=== PATIENT | female | born 1935 | race Caucasian/White ===

== ENCOUNTER → 2022-12-26 09:30 | Outpatient (CLI) | payer MEDICARE, SELFPAY ==
[2022-12-26 19:36] LABS: Alanine Aminotransferase 21 U/L (12-78); Albumin Level 4.2 g/dl (3.5-5.0); Albumin/Globulin Ratio 1.4 (1.1-1.8); Alkaline Phosphatase 86 U/L (38-126); Anion Gap 13.3 mEq/L (5-15); Aspartate Amino Transferase 38 U/L (14-36); Bilirubin,Total 0.3 mg/dl (0.2-1.3); Blood Urea Nitrogen 14 mg/dl (7-17); Calcium 9.4 mg/dl (8.4-10.2); Carbon Dioxide 26 mmol/L (22.0-30.0); Chloride 105 mmol/L (98-107); Chol/HDL Ratio 3.3 (1-3.5); Cholesterol 154 mg/dl (140-200); Estimated Glomerular Filt Rate 68 ml/min (>60); GFR (African American) 82 ML/MIN (>60); Globulin 2.9 g/dL (1.3-3.2); Glucose 87 mg/dl (74-100); HDL Cholesterol 47 mg/dl (40-60); Potassium 4.3 mmoL/L (3.5-5.1); Sodium 140 mmol/L (136-145); Total Protein,Serum 7.1 g/dl (6.3-8.2); Triglycerides 97 mg/dl (30-150); VLDL Cholesterol 19 mg/dL (0-40)
[2022-12-26 19:39] LABS: Basophils % 0.8 % (0.1-2.0); Eosinophils # 0.3 K/mm3 (0.0-0.4); Eosinophils % 4.9 % (0.1-12.0); Hematocrit 39.7 % (37.0-47.0); Lymphocytes % 39.2 % (10-50); Mean Corpuscular HGB Conc 32.9 g/dL (31.8-35.4); Mean Corpuscular Hemoglobin 33.1 pg (27.0-31.2); Mean Corpuscular Volume 100.5 fl (81-99); Mean Platelet Volume 11.6 fl (7.4-10.4); Monocytes # 0.4 K/mm3 (0.1-1.0); Monocytes % 8.5 % (1.7-9.3); Neutrophils # 2.4 K/mm3 (1.8-7.8); Neutrophils % 46.6 % (37.0-80.0); Platelet Count 141 K/mm3 (142-424); Red Blood Count 3.95 M/mm3 (4.20-5.40); White Blood Count 5.1 K/mm3 (4.8-10.8)
[2022-12-26 19:54] LABS: 25-OH Vitamin D, Total 71.9 ng/mL (30-100); Direct LDL Cholesterol 85.14 mg/dL (100-129); T4 (Thyroxine) 7.7 ug/dl (5.53-11.0)
[2022-12-26 20:07] LABS: Thyroid Stimulating Hormone 4.52 uIU/mL (0.465-4.68)
== END ==
PROVIDERS: PCP Emergency Medicine; Visit Provider Emergency Medicine
DX: R53.83 Other fatigue (principal); E78.5 Hyperlipidemia, unspecified; E55.9 Vitamin D deficiency, unspecified; Z68.24 Body mass index [BMI] 24.0-24.9, adult
CPT/HCPCS: 80053; 80061; 82306; 84436; 84443; 85025

== ENCOUNTER → 2023-02-21 11:57 | Outpatient (CLI) | payer MEDICARE, SELFPAY ==
[2023-02-21 11:59] LABS: Benzodiazepines Screen,Urine Negative ng/ml (<200)
[2023-02-21 12:00] LABS: Amphetamine/Metha Screen,Urine Negative ng/ml (<1000)
[2023-02-21 12:01] LABS: Methadone Screen,Urine Negative ng/ml (<300)
[2023-02-21 12:02] LABS: Cannabinoid Screen,Urine Negative ng/ml (<50); Cocaine Screen,Urine Negative ng/ml (<300)
[2023-02-21 12:04] LABS: Opiate Screen,Urine Negative ng/ml (<300); Phencyclidine Screen,Urine Negative ng/ml (<25)
[2023-03-01 11:41] LABS: Barbiturates Positive (.)
== END ==
LOC: LAB.DROPOF 11:58
PROVIDERS: PCP Internal Medicine; Visit Provider Internal Medicine
DX: M54.12 Radiculopathy, cervical region (principal); Z79.899 Other long term (current) drug therapy
CPT/HCPCS: 80307; 80345

== ENCOUNTER 2023-03-08 09:00 | Outpatient (RCR) | payer MEDICARE, SELFPAY ==
--- NOTE | 2023-01-24 09:51 | HMH.PTOPEV ---
PT Outpatient Evaluation Rehab PT Outpatient Evaluation Start: 01/24/23 09:34 Freq: Status: Active Protocol: Document 01/24/23 09:34 KAMRON (Rec: 01/24/23 09:50 KAMRON [id number]) E-signed By George Quesada, PT Outpatient Therapy Subjective History Subjective History Patient is an 87 year old female presenting to outpatient PT with reports of chronic cervical spine pain starting approximately 5 years ago that has progressively gotten worse over the past 4 months. Patient also complains of upper/mid thoracic spine pain right side only. Patient reports hx of multiple R rib fractures, specifically T4-7. Cervical spine symptoms of insidious onset. No reports of radicular symptoms. No recent imaging on file to report. Patient has previously seen pain management for injections with no improvements noted. Comorbidities include hx of HTN and HL. New diagnosis of cancer in past 12 No months? Chief Complaint Pain,Stiff Symptom Type Ache,Stabbing Symptoms Relieved By Rest/Positioning,Heat,OTC Meds ,Prescription Meds Symptoms Aggravated By Physical Activity,Lifting Prior Functional Limitations None Current Functional Limitations Reaching,Lifting,Housework Symptom Description Constant but Variable Level of pain today (0-10) 3 Pain scale - at its best (0-10) 1 Pain scale - at its worst (0-10) 9 Cervical Eval Palpation Cervical Muscles R Cervical Paraspinal,L Cervical Paraspinal,R Suboccipital,L Suboccipital,R CT Junction,L CT Junction,R Upper Trapezius,L Upper Trapezius Cervical/Thoracic Palpation Findings Tenderness Posture Head/C-Spine Posture Sitting Position Extended Head/C-Spine Posture Standing Position Extended Flexibility Deficits Upper Trapezius Muscle Length (R) Moderate Tightness,(L) Moderate Tightness Levaetor Scapulae Muscle Length (R) Moderate Tightness,(L) Moderate Tightness Pectoralis Minor Muscle Length (R) Mild Tightness,(L) Mild Tightness Passive Joint Mobility Cervical PIVM WNL: R OA L OA R AA L AA R C2/3 L C2/3 R C3/4 L C3/4 R C4/5 L C4/5 R C5/6 L C5/6 R C6/7 L C6/7 R C7/T1 L C7/T1 AROM Cervical Spine Extension Active Range of 38 Motion (degrees) Cervical Spine Flexion Active Range of 46 Motion (degrees) Cervical Spine Right Lateral Flexion 40 Active Range of Motion (degrees) Cervical Spine Left Lateral Flexion 44 Active Range of Motion (degrees) Cervical Spine Right Rotation Active 62 Range of Motion (degrees) Cervical Spine Left Rotation Active 58 Range of Motion (degrees) MMT Bilateral Deltoid (C5) 4 Good Biceps Brachii Strength Grade 4 Good Wrist Extension Strength Grade 4 Good Triceps Brachii Strength Grade 4 Good Wrist Flexion Strength Grade 4 Good Extensor Pollicis Longus Strength Grade 4 Good Finger Abduction Strength Grade 4 Good Special Test C-Spine Foraminal Compression (Spurling) Negative Left,Negative Right Test C-Spine Foraminal Distraction Test Positive Neck Disability Index Neck Disability Index Section 1: Pain Intensity The pain is moderate at the moment Section 2: Personal Care (washing, I can look after myself dressing, etc.) normally without causing extra pain Section 3: Lifting I can only lift very light weights Section 4: Reading I can hardly read at all because of severe pain in my neck Section 5: Headaches I have slight headaches, which come infrequently Section 6: Concentration I can concentrate fully when I want to with slight difficulty Section 7: Work I can do as much work as I want to Section 8: Driving I can drive my car as long as I want with moderate pain in my neck Section 9: Sleeping My sleep is slightly disturbed (less than 1 hr sleepless) Section 10: Recreation I am able to engage in all my recreation activities with some pain in NDI Score 16 Outpatient Therapy Assessment Impairments Problems/Impairmments Palpation Tenderness,Impaired Range of Motion,Impaired Driving,Impaired Lifting, Impaired Household Care, Impaired Work Activities, Subjective C/O Pain Prognosis Rehab Potential Good Clinical Impression Consistent with Diagnosis Yes Short Term Goals Number of Weeks 2 Decrease Subjective C/O Pain Yes: 5/10 at worst Patient to be Ind w/ HEP Yes Assisted Goals Number of Weeks 4-6 Decreased Palpation Tenderness Yes: 1/4 Increase Range of Motion Yes: WNL all planes Restore Ability to Lift Objects to Yes: 10 lbs without difficulty Shoulder Level Restore Ability to Lift Objects Overhead Yes: Improve Ability For Household Care Yes Improve Tolerance to Work Activities Yes Decrease Subjective C/O Pain Yes: 2/10 at worst Outpatient Therapy Plan of Care Treatment Plan May Include Therapeutic Exercise Including Home Yes Exercise Program Manual Therapy Techniques Yes Neuromuscular Re-education Yes Therapeutic Activities to Return to Yes Previous Functional/Work Level Mechanical Traction Yes Dry Needling Yes Thermal Modalities Yes Electrical Stimulation Yes Ultrasound/Phonophoresis Yes Iontophoresis Yes Massage Yes Eval/Re-Eval Yes Frequency Times per week 2 Duration Number of Weeks 4-6 Addendums This patient is a candidate for social No or vocational rehab? Patient/Guardian verbally acknowledges Yes understanding of treatment program and consents to further treatment? Patient/Guardian verbally acknowledges Yes understanding of diagnosis, prognosis and goals for treatment? Eval Complexity PT Charges 83694 - Moderate Complexity Shoulder/Elbow Eval Shoulder Objective Measurements Elbow Objective Measurements PHYSICIAN CERTIFICATION: I certify the specified therapy services for Summer Gandara are required, authorized, and reviewed every 30 days.
== END 2023-03-08 10:00 | disposition home or self-care (01) ==
LOC: PT 09:00
PROVIDERS: PCP Emergency Medicine; Visit Provider Emergency Medicine
DX: M54.12 Radiculopathy, cervical region (principal)
CPT/HCPCS: 20561; 97010; 97014; 97035; 97110; 97140; 97163; 97164; 97530; G0283

== ENCOUNTER 2023-04-19 12:50 | Outpatient (RCR) | payer MEDICARE, SELFPAY ==
--- NOTE | 2023-04-19 13:57 | HMH.PTOPEV ---
PT Outpatient Evaluation Rehab PT Outpatient Evaluation Start: 04/19/23 13:04 Freq: Status: Active Protocol: Document 04/19/23 13:27 JEAN (Rec: 04/19/23 13:57 JEAN [id number]) E-signed By Miguel Booth, PT Outpatient Therapy Subjective History Subjective History This is the initial PT eval for Summer Gandara, 88 yowf who presents with c/o neck pain for many years, but worse x ~ 1 yr. She reports no radicular symptoms at this time, but does c/o some pain below the R scapula. She reports having prior injections for pain management that did not help her symptoms. She also reports history of frequent headaches, since the 1959's. New diagnosis of cancer in past 12 No months? Chief Complaint Pain,Stiff Symptom Type Ache Symptoms Relieved By Heat Symptoms Aggravated By Physical Activity Prior Functional Limitations Sleeping Current Functional Limitations Housework,Sleeping,Recreation Activity Symptom Description Constant but Variable Level of pain today (0-10) 4 Pain scale - at its worst (0-10) 8 Cervical Eval Palpation Cervical Muscles R Cervical Paraspinal,L Cervical Paraspinal,R Suboccipital,L Suboccipital,R CT Junction,L CT Junction,R Thoracic Paraspinals,L Thoracic Paraspinals Cervical/Thoracic Palpation Findings Tenderness Flexibility Deficits Upper Trapezius Muscle Length (R) Moderate Tightness,(L) Moderate Tightness Levaetor Scapulae Muscle Length (R) Moderate Tightness,(L) Moderate Tightness Passive Joint Mobility Cervical PIVM Dec: R C3/4 L C3/4 R C4/5 L C4/5 R C5/6 L C5/6 R C6/7 L C6/7 R C7/T1 L C7/T1 WNL: R OA L OA R AA L AA R C2/3 L C2/3 AROM Cervical Spine Extension Active Range of 0-45 Motion (degrees) Cervical Spine Flexion Active Range of 0-40 Motion (degrees) Cervical Spine Right Lateral Flexion 0-20 Active Range of Motion (degrees) Cervical Spine Left Lateral Flexion 0-25 Active Range of Motion (degrees) Cervical Spine Right Rotation Active 0-55 Range of Motion (degrees) Cervical Spine Left Rotation Active 0-50 Range of Motion (degrees) MMT Bilateral Deltoid (C5) 4 Good Biceps Brachii Strength Grade 4 Good Wrist Extension Strength Grade 5 Normal Triceps Brachii Strength Grade 5 Normal Wrist Flexion Strength Grade 5 Normal Extensor Pollicis Longus Strength Grade 5 Normal Finger Abduction Strength Grade 5 Normal Special Test C-Spine Foraminal Compression (Spurling) Negative Left,Negative Right Test C-spine Verterbral Accessory Movements [employer] [place] that Elicit Symptoms C-Spine Foraminal Distraction Test Negative C-Spine Compression Test Negative Left,Negative Right Neck Disability Index Neck Disability Index Section 1: Pain Intensity The pain is very mild at moment Section 2: Personal Care (washing, I can look after myself dressing, etc.) normally without causing extra pain Section 3: Lifting I can lift heavy weights but it gives extra pain Section 4: Reading I can read as much as I want with moderate pain in my neck Section 5: Headaches I have moderate headaches, which come infrequently Section 6: Concentration I can concentrate fully when I want to with no difficulty Section 7: Work I can only do my usual work, but no more Section 8: Driving I can drive my car as long as I want with slight pain in my neck Section 9: Sleeping My sleep is greatly disturbed (3-5 hrs sleepless) Section 10: Recreation I am able to engage in most, but not all of my usual recreation NDI Score 14 Outpatient Therapy Assessment Impairments Problems/Impairmments Palpation Tenderness,Impaired Range of Motion,Impaired Strength,Impaired Transfers, Impaired Lifting,Impaired Household Care,Subjective C/O Pain,Impaired Self Care/Self Management Prognosis Rehab Potential Fair Clinical Impression Consistent with Diagnosis Yes Short Term Goals Number of Weeks 2 Decreased Palpation Tenderness Yes: 1/4 B UT Increase Range of Motion Yes: C-spine AROM by 5 deg Increase Strength Yes: B UE 4/5 throughout Improve Neck Disability Index Score Yes: <12 Decrease Subjective C/O Pain Yes: 6/10 at worst Patient to be Ind w/ HEP Yes Intermediate Goals Number of Weeks 4 Decreased Palpation Tenderness Yes: 0/4 B UT Increase Range of Motion Yes: C-spine AROM by 10 deg Increase Strength Yes: B UE 4+/5 throughout Improve Ability For Household Care Yes Improve Neck Disability Index Score Yes: <10 Decrease Subjective C/O Pain Yes: 4/10 at worst Patient to be Ind w/ Advanced HEP Yes Outpatient Therapy Plan of Care Treatment Plan May Include Therapeutic Exercise Including Home Yes Exercise Program Manual Therapy Techniques Yes Neuromuscular Re-education Yes Therapeutic Activities to Return to Yes Previous Functional/Work Level ADL/Self Care Education Yes Thermal Modalities Yes Electrical Stimulation Yes Ultrasound/Phonophoresis Yes Massage Yes Eval/Re-Eval Yes Frequency Times per week 2 Duration Number of Weeks 4 Addendums This patient is a candidate for social No or vocational rehab? Patient/Guardian verbally acknowledges Yes understanding of treatment program and consents to further treatment? Patient/Guardian verbally acknowledges Yes understanding of diagnosis, prognosis and goals for treatment? Eval Complexity PT Charges 10168 - High Complexity Shoulder/Elbow Eval Shoulder Objective Measurements Elbow Objective Measurements PHYSICIAN CERTIFICATION: I certify the specified therapy services for Summer Gandara are required, authorized, and reviewed every 30 days.
[2023-04-19 19:26] LABS: Basophils % 0.7 % (0.1-2.0); Eosinophils # 0.1 K/mm3 (0.0-0.4); Eosinophils % 2.3 % (0.1-12.0); Hematocrit 38.6 % (37.0-47.0); Hemoglobin 12.7 g/dL (12.2-16.2); Lymphocytes # 1.9 K/mm3 (0.7-4.5); Mean Corpuscular Hemoglobin 31.9 pg (27.0-31.2); Mean Corpuscular Volume 96.8 fl (81-99); Mean Platelet Volume 11.3 fl (7.4-10.4); Monocytes # 0.4 K/mm3 (0.1-1.0); Monocytes % 8.1 % (1.7-9.3); Neutrophils # 2.5 K/mm3 (1.8-7.8); Neutrophils % 50.9 % (37.0-80.0); Platelet Count 145 K/mm3 (142-424); Red Blood Count 3.99 M/mm3 (4.20-5.40); Red Cell Distribution Width 13.1 % (11.5-17.5); White Blood Count 4.9 K/mm3 (4.8-10.8)
[2023-04-19 19:33] LABS: Alanine Aminotransferase 18 U/L (12-78); Albumin Level 3.9 g/dl (3.5-5.0); Albumin/Globulin Ratio 1.3 (1.1-1.8); Alkaline Phosphatase 90 U/L (38-126); Anion Gap 9.4 mEq/L (5-15); Aspartate Amino Transferase 28 U/L (14-36); Bilirubin,Total 0.3 mg/dl (0.2-1.3); Blood Urea Nitrogen 11 mg/dl (7-17); Calcium 9.1 mg/dl (8.4-10.2); Carbon Dioxide 26 mmol/L (22.0-30.0); Chloride 108 mmol/L (98-107); Estimated Glomerular Filt Rate 59 ml/min (>60); GFR (African American) 72 ML/MIN (>60); Globulin 2.9 g/dL (1.3-3.2); Glucose 95 mg/dl (74-100); Potassium 4.4 mmoL/L (3.5-5.1); Sodium 139 mmol/L (136-145); Total Protein,Serum 6.8 g/dl (6.3-8.2)
== END 2023-04-19 14:00 | disposition home or self-care (01) ==
LOC: PT 12:50
PROVIDERS: Internal Medicine; PCP Internal Medicine; Visit Provider Internal Medicine
DX: M54.12 Radiculopathy, cervical region (principal); M54.16 Radiculopathy, lumbar region; E03.9 Hypothyroidism, unspecified; M81.0 Age-related osteoporosis without current pathological fracture
CPT/HCPCS: 80053; 82306; 84443; 85025; 97163

== ENCOUNTER 2023-04-20 10:24 | Outpatient (CLI) | payer MEDICARE, SELFPAY ==
--- NOTE | 2023-04-20 10:28 | XR_ITS ---
FINAL REPORT TECHNIQUE: Right hand 2 views CLINICAL HISTORY: hand pain COMPARISON: None FINDINGS: RIGHT HAND: Mild and moderate degenerative change is present in the right hand, most severe in the distal inner phalangeal joints and the first CMC joint. There is positive ulnar variance present. No acute bony abnormality is identified. There is soft tissue calcifications adjacent to the carpal bones. There are small radiopaque foreign bodies in the second digit. IMPRESSION: Mild and moderate degenerative change, most severe in the distal inner phalangeal joints and the first CMC joint. Reviewed, Interpreted and Dictated by Garrick Bro III, MD Transcribed by Galina Toure Authenticated and [facility]
--- NOTE | 2023-04-20 10:28 | XR_ITS ---
FINAL REPORT CLINICAL HISTORY: back pain COMPARISON: None FINDINGS: AP, lateral, and swimmer's views of the thoracic spine were obtained. There is no prior exam for comparison. There is no acute fracture. Moderate degenerative change is present in the thoracic spine, with multilevel osteophytes. There is an S-shaped curvature of the thoracic spine. Vertebral body height is preserved. Paraspinal soft tissues are within normal limits. IMPRESSION: No acute osseous abnormality of the thoracic spine. Moderate degenerative change with multilevel osteophytes and an S-shaped curvature of the thoracic spine. Reviewed, Interpreted and Dictated by Garrick Bro III, MD Transcribed by Galina Toure Authenticated and [facility] [place] [place]
== END 2023-04-20 23:59 ==
LOC: RAD 10:25
PROVIDERS: PCP Internal Medicine; Visit Provider Internal Medicine
DX: M79.641 Pain in right hand; M54.6 Pain in thoracic spine
CPT/HCPCS: 72072; 73120

== ENCOUNTER → 2023-05-11 10:57 | Outpatient (POV) | payer MEDICARE, SELFPAY ==
--- NOTE | 2023-05-11 11:08 | A.OFFVIS_ITS ---
HPI Data of Consult Patient: new to practice Consult date: 05/11/23 Requesting Physician: Lois Sharma APRN Primary Care Provider: Castro Collins DO Consult Narrative Reason for consult: Right mid back pain, right under the arm pain History of present illness: Ms. Gandara is a 88 year old female who presents today as a new patient. She is a referral to Dr. Gonzalez's office. Today she rates her pain a 5 out of 10. She states she has pain throughout her right shoulder into her mid back and does come down into her right breast and under her arm. Patient states this been going on for over a year unrelated to any specific trauma or injury. Patient does describe this as a sharp sensation that does interfere with her ability to perform activities of daily living. Patient does state that she has tried xgmp-[id number] Tylenol and ibuprofen along with heat and ice and multiple topicals including Biofreeze and Voltaren with minimal relief. Patient states that she did end up going to pain management in [place] where they did do 1 injection however it did not provide any additional relief and that she c ontinues to have soreness from this. Patient does state the pain is worse at night. Patient has had recent physical therapy where they did use a TENS unit and heating pad and she states it does help but only while she is using it. Patient states immediately after these visits the pain is right back and still the same with no additional improvement. Patient does state that she is scheduled for an MRI next Monday. Patient does state that she was prescribed Percocet in the past however since Dr. Wright has last there was some issues to where she is not on it currently however she is hoping to start this medication by accident. Her Lei has been reviewed and is appropriate. CC: Lois Sharma APRN [facility] Disclaimer: The information contained in this section may have been updated after the patient was seen, as this information can be updated by other users. Medical History (Updated 05/11/23 @ 11:28 by Lois Sharma APRN) Migraine HTN (hypertension) Hypothyroid GERD (gastroesophageal reflux disease) Family History (Updated 05/11/23 @ 11:19 by Sandra Richter RN) Other No significant family history Social History (Updated 05/11/23 @ 11:19 by Sandra Richter RN) Smoking Status: Never smoker alcohol intake: never substance use type: denies use current occupational status: other Travel in the last 8 weeks: None caffeine: No Review of Systems Review of Systems Review of systems:: pertinent systems reviewed and negative unless documented below Review of systems (narrative): Review of Systems: General: No recent weight changes, no fever, no sleep disturbances Respiratory: No cough, no shortness of air, no recurring pulmonary infections Cardiovascular/peripheral vascular: No chest pain, no palpitations, no edema, no shortness of breath Gastrointestinal: No new onset incontinence, normal bowel movements reported Genitourinary: No new onset incontinence Musculoskeletal: Right-sided mid back pain, right shoulder pain, right axilla pain Psychiatric: [Normal mood/affect] Neurological: [Denies weakness in extremities], [denies balance issues] Meds Home Medications and Allergies Home Medications Medication Instructions Recorded Confirmed Type aspirin 81 mg tablet,delayed 81 mg PO DAILY Heart disease 01/24/18 05/11/23 History release (Aspir-Low) metoprolol succinate 25 mg 25 mg PO DAILY 12/26/22 05/11/23 History tablet,extended release 24 hr omeprazole 20 mg capsule,delayed 20 mg PO DAILY 12/26/22 05/11/23 History release amitriptyline 10 mg tablet 10 mg PO HS 60 days #60 tabs 04/19/23 05/11/23 Rx srxchvudyn-sdxezrlmhtpzl-arufwvqa 1 tab PO .q day PRN headaches 30 05/10/23 05/11/23 Rx 50 mg-325 mg-40 mg tablet days #30 tabs oxycodone-acetaminophen 5 mg-325 1 tab PO BID PRN pain #20 tabs 05/10/23 05/11/23 Rx mg tablet (Percocet) New Prescriptions to Start Prescriptions: Allergies Allergy/AdvReac Type Severity Reaction Status Date / Time No Known Allergies Allergy Verified 05/10/23 11:06 Objective Narrative: Physical Exam: General: Alert and oriented x3, no acute distress, pleasant and cooperative Lungs: Respirations even and unlabored, symmetrical chest expansion Eyes: PERRL Musculoskeletal: Flexion and extension of thoracic [spine] somewhat guarded secondary to pain, [antalgic gait noted] point tenderness along thoracic paraspinous muscles/rhomboid Neurological: Speech clear, no gross sensory deficit Additional findings Additional findings: FINDINGS: AP, lateral, and swimmer's views of the thoracic spine were obtained. There is no prior exam for comparison. There is no acute fracture. Moderate degenerative change is present in the thoracic spine, with multilevel osteophytes. There is an S-shaped curvature of the thoracic spine. Vertebral body height is preserved. Paraspinal soft tissues are within normal limits. IMPRESSION: No acute osseous abnormality of the thoracic spine. Moderate degenerative change with multilevel osteophytes and an S-shaped curvature of the thoracic spine. Reviewed, Interpreted and Dictated by Garrick Bro III, MD Transcribed by Galina Toure Authenticated and [facility] Assessment and Plan *Assessment and plan (1) Right shoulder pain: Problem Comment: I do not know what is causing this patient's pain is radiating around under her right breast. Again I think this may be related to a nerve root compression. Will get an MRI as described. I said right shoulder but is really not the right shoulder it is just the right\trunk/breast pain on the right side. Will ask physical therapy to focus on this area as well. Status: Acute Qualifiers: Chronicity: chronic Qualified Code(s): M25.511 - Pain in right shoulder; G89.29 - Other chronic pain Category: Medical Code(s): M25.511 - Pain in right shoulder (2) Mid back pain: Status: Acute Category: Medical Code(s): M54.9 - Dorsalgia, unspecified (3) Myofascial pain on right side: Status: Acute Category: Medical Code(s): M79.18 - Myalgia, other site Plan Patient continues to experience significant pain in and around her right shoulder to her mid back with some symptoms under her right axilla. Patient did have point tenderness along her thoracic paraspinous and rhomboid muscles during today's exam. I will order the patient a compounded cream and have her follow- up in 2 weeks after her MRI for reevaluation of symptoms and plan of care. Patient has been instructed to contact the clinic with any concerns before the next appointment. Dr. Campos has reviewed this note and agrees with this plan of care. This note was dictated using voice recognition software and make contain errors or omissions.
[2023-05-11 11:17] VITALS: BP 178/73; PULSE 66; RESP 20; O2SAT 95; BMI 24.6
== END ==
LOC: SC.PAIN 10:58
PROVIDERS: PCP Internal Medicine; Visit Provider Nurse Practitioner Family
DX: M25.511 Pain in right shoulder (principal); G89.29 Other chronic pain; M79.18 Myalgia, other site; M54.6 Pain in thoracic spine
CPT/HCPCS: 99202; G0463

== ENCOUNTER 2023-05-16 10:00 | Outpatient (RCR) | payer MEDICARE, SELFPAY ==
--- NOTE | 2023-05-10 16:32 | HMH.PTOPEV ---
PT Outpatient Evaluation Rehab PT Outpatient Evaluation Start: 05/09/23 14:55 Freq: Status: Active Protocol: Document 05/10/23 07:35 PAULINE (Rec: 05/10/23 14:48 PAULINE [id number]) E-signed By Erica Ramos, PT Outpatient Therapy Subjective History Subjective History This is an initial evaluation for 88 y/o female who presents with complaints of chronic neck, upper back, and shoulder pain. Pt referred for LBP but denying LBP as chief complaint. I have had LBP all my life but that's not why I' m here . Pt reports she did a physical therapy evaluation for her neck here last month. Pt reports she has been having this pain since May of last year. Pt reports chronic ROUSE that begins at the base of the skull and travels up and anteriorly to her forehead. Pt with hx of carpal tunnel release that provided relief. Pt reports all of her pain is right-sided near her posterior scapula and travels up into her neck. Pt had an xray of her thoracic spine that showed degenerative changes but denies hx of MRI. Pt has follow up with her referring physician tomorrow. Pt denying radicular symptoms in UE or LEs. Pt denying nausea, diplopia, or drop attacks. New diagnosis of cancer in past 12 No months? Chief Complaint Pain,Stiff Symptom Type Ache Symptoms Relieved By Rest/Positioning,Heat Symptoms Aggravated By Physical Activity Prior Functional Limitations Reaching,Lifting,Housework, Desk Work/Reading,Bending/ Stooping Symptom Description Constant but Variable Level of pain today (0-10) 4 Pain scale - at its best (0-10) 2 Pain scale - at its worst (0-10) 10 Cervical Eval Palpation Cervical Muscles R Cervical Paraspinal,L Cervical Paraspinal,R Upper Trapezius,R Thoracic Paraspinals Cervical/Thoracic Palpation Findings Tenderness Flexibility Deficits Upper Trapezius Muscle Length (R) Mild Tightness,(L) Mild Tightness AROM Cervical Spine Extension Active Range of 46 Painful R Motion (degrees) Cervical Spine Flexion Active Range of 38 Motion (degrees) Cervical Spine Right Lateral Flexion 22 Active Range of Motion (degrees) Cervical Spine Left Lateral Flexion 25 Painful R Active Range of Motion (degrees) Cervical Spine Right Rotation Active 55 Range of Motion (degrees) Cervical Spine Left Rotation Active 55 Painful R Range of Motion (degrees) MMT Bilateral Deltoid (C5) 4 Good Biceps Brachii Strength Grade 4 Good Wrist Extension Strength Grade 4 Good Triceps Brachii Strength Grade 4 Good Wrist Flexion Strength Grade 4 Good Extensor Pollicis Longus Strength Grade 4 Good Finger Abduction Strength Grade 4 Good Lumbopelvic Eval Posture Thoracic Spine Posture Standing Position Increased Kyphosis Lumbar Spine Posture Standing Position Neutral Assistive device Assistive Devices None / NA Gait Observation General Gait Pattern Observation No Deviations/Normal Palapation tenderness right thoracic spinal tenderness Yes lumbar spinal tenderness Yes paraspinal tenderness Yes Lumbar/Sacral Palpation Findings Tenderness,Trigger Point Range of Motion Lumbar Spine Active Flexion Range of 85 tight feeling Motion (degrees) Lumbar Spine Active Extension Range of 20 Motion (degrees) Left Lumbar Spine Lateral Flexion Active 30 Range of Motion (degrees) Right Lumbar Spine Lateral Flexion 30 Active Range of Motion (degrees) Manual Muscle Test Bilateral Knee Extension Strength Grade 4- Good- Knee Flexion Strength Grade 4- Good- Hip Flexion Strength Grade 4- Good- Hip Abduction Strength Grade 4- Good- Hip Adduction Strength Grade 3+ Fair+ Ankle Dorsiflexion Strength Grade 4- Good- Special Tests Hip Piriformis Test Positive Left,Positive Right Sciatic Nerve Tension Test Negative Left,Negative Right Oswestry Index Section 1 Pain Intensity The pain is moderate and does not vary much Section 2 Personal Care (Washing,Dresing) my way of washing or dressing even though it causes some pain Section 3 Lifting I can lift heavy weights, but it gives me extra pain Section 4 Walking I cannot walk more than one mile wihtout increasing pain Section 5 Sitting Pain prevents me from sitting for more than one hour Section 6 Standing I cannot stand more than 1 hour without increasing pain Section 7 Sleeping Because of my pain, my normal night's sleep is less than 6 hours sleep Section 8 Social Life My social life is normal but increases the degree of pain Section 9 Traveling I get some pain when traveling , but none of my usual forms of travel m Section 10 Changing Degreee of Pain My pain is neither getting better or worse Score and Risk Level Oswestry Sc 18 Oswestry Risk Level Moderate Disability Neck Disability Index Neck Disability Index Section 1: Pain Intensity The pain is moderate at the moment Section 2: Personal Care (washing, I can look after myself dressing, etc.) normally without causing extra pain Section 3: Lifting Pain prevents me lifting heavy weights off the floor, but I can manage Section 4: Reading I can read as much as I want with moderate pain in my neck Section 5: Headaches I have moderate headaches, which come infrequently Section 6: Concentration I have a fair degree of difficulty in concentrating when I want to Section 7: Work I can only do my usual work, but no more Section 8: Driving I can drive my car as long as I want with slight pain in my neck Section 9: Sleeping My sleep is moderately disturbed (2-3 hrs. sleepless) Section 10: Recreation I am able to engage in most, but not all of my usual recreation NDI Score 17 Outpatient Therapy Assessment Impairments Problems/Impairmments Palpation Tenderness,Impaired Range of Motion,Impaired Strength,Impaired Sitting, Impaired Recreational Activities,Subjective C/O Pain ,Impaired Self Care/Self Management Prognosis Rehab Potential Fair Comment Pt with chronic neck and upper back pain, chronic HAs, and chronic LBP. Pt denying LBP as chief complaint and demonstrated non-painful and WFL lumbar ROM. Pt TTP cervical, thoracic, and lumbar musculature. Pt does display mild-mod B LE weakness and lumbar/hip muscular tightness. PT to treat back pain and refer for cervical/thoracic further imaging/MRI d/t severity and duration of symptoms. Pt would benefit from skilled outpatient PT to address chronic back pain. Clinical Impression Consistent with Diagnosis Yes Consistent with Back pain Short Term Goals Number of Weeks 2 Decreased Palpation Tenderness Yes: 1/4 TTP involved structures Increase Range of Motion Yes: By 5 degrees in affected planes Increase Strength Yes: 4+/5 MMTs in affected muscles Improve Oswestry Score Yes Improve Neck Disability Index Score Yes: <15 or mild disability Decrease Subjective C/O Pain Yes: 7/10 at worst. Patient to be Ind w/ HEP Yes Shelter Goals Number of Weeks 5 Decreased Palpation Tenderness Yes: 0/4 TTP involved structures Increase Range of Motion Yes: AROM WNL Pain and free Increase Strength Yes: 5/5 UE and LEs Improve Oswestry Score Yes: Score reflecting mild disability Improve Neck Disability Index Score Yes: <10 or mild disability Decrease Subjective C/O Pain Yes: 24 hour pain average of 2 /10 to improve QOL Patient to be Ind w/ Advanced HEP Yes Outpatient Therapy Plan of Care Treatment Plan May Include Therapeutic Exercise Including Home Yes Exercise Program Manual Therapy Techniques Yes Neuromuscular Re-education Yes Therapeutic Activities to Return to Yes Previous Functional/Work Level Gait Training Yes ADL/Self Care Education Yes Thermal Modalities Yes Electrical Stimulation Yes Ultrasound/Phonophoresis Yes Iontophoresis Yes Massage Yes Eval/Re-Eval Yes Frequency Times per week 1-2 times Duration Number of Weeks 4-5 Addendums This patient is a candidate for social No or vocational rehab? Patient/Guardian verbally acknowledges Yes understanding of treatment program and consents to further treatment? Patient/Guardian verbally acknowledges Yes understanding of diagnosis, prognosis and goals for treatment? Eval Complexity PT Charges 89838 - Moderate Complexity Shoulder/Elbow Eval Shoulder Objective Measurements Elbow Objective Measurements PHYSICIAN CERTIFICATION: I certify the specified therapy services for Summer Gandara are required, authorized, and reviewed every 30 days.
== END 2023-05-16 11:00 | disposition home or self-care (01) ==
LOC: PT 10:00
PROVIDERS: Visit Provider Internal Medicine
DX: M54.16 Radiculopathy, lumbar region (principal)
CPT/HCPCS: 97010; 97014; 97110; 97140; 97163; G0283

== ENCOUNTER 2023-05-16 16:57 | Outpatient (CLI) | payer MEDICARE, SELFPAY ==
--- NOTE | 2023-05-16 16:58 | MR_ITS ---
FINAL REPORT CLINICAL HISTORY: RIGHT SIDED neck AND SHOULDER pain FINDINGS: Multiplanar MR imaging of the cervical spine was performed without and with contrast. On the sagittal T2-weighted images, disc degeneration is seen at multiple levels. The vertebral alignment is normal. There is no evidence of fracture. No bony mass is identified. The cervical spinal cord has an unremarkable appearance without evidence of mass, edema or syrinx. C2-3: No significant canal stenosis or neural foraminal narrowing is identified. C3-4: Uncovertebral osteophytes with moderate right and mild left neuroforaminal narrowing. C4-5: Annular disc bulge with uncovertebral osteophytes and mild bilateral neuroforaminal narrowing. C5-6: Disc osteophyte complex with severe bilateral neuroforaminal narrowing. There is moderate central canal stenosis with AP diameter thecal sac measuring 6 mm. C6-7: Disc osteophyte complex with severe bilateral neuroforaminal narrowing. There is mild central canal stenosis with the AP diameter of the thecal sac measuring 9 mm. C7-T1: No significant canal stenosis or neural foraminal narrowing is identified. No abnormal contrast enhancement is seen on the postcontrast images. IMPRESSION: Multilevel degenerative disc disease with severe bilateral neuroforaminal narrowing and mild to moderate central canal stenosis at C5-6 and C6-7. Reviewed, Interpreted and Dictated by Garrick Bro III, MD Transcribed by Lisset Pierre Authenticated and [facility]
[2023-05-16] MEDS: SODIUM CHLORIDE 0.9% 10ML SYR (RAD ONLY) 10 ML IV (17:42)
[2023-05-16] MEDS: GADOTERIDOL INJ 17ML SYRINGE 10 ML IV (17:42)
== END 2023-05-16 23:59 ==
LOC: RAD 16:58
PROVIDERS: PCP Internal Medicine; Visit Provider Internal Medicine
DX: M54.12 Radiculopathy, cervical region (principal)
CPT/HCPCS: 72156; 76376; A9576

== ENCOUNTER 2023-07-05 09:20 | Outpatient (POV) | payer MEDICARE, SELFPAY ==
[2023-07-05 09:55] VITALS: BP 138/81; PULSE 64; RESP 18; O2SAT 100; BMI 24.6
--- NOTE | 2023-07-05 10:22 | EXP.PAIN.SOA ---
[facility] Pain Management SOAP Note Subjective:: Patient is a pleasant 88-year-old female who presents today for follow-up of cervical MRI. Today she rates her pain a 9 out of 10. Patient denies any new trauma or injury. Patient does state that she continues to have pain throughout her neck and into her shoulders and increased headache. Patient states that the pain will go down into her mid back. She describes this as an aching, throbbing sensation with some numbness and tingling. Patient states the pain does interfere with her ability to perform activities of daily living such as cooking and cleaning. Patient has tried bjry-ccn-vpqxbse medications along with heat and ice and topicals with minimal relief. Patient has had physical therapy and used a TENS unit with minimal change. Patient is interested in any help we may be able to provide. She is prescribed Percocet 5 mg from her PCP and was prescribed compounded cream from our office however she states she did not really notice much improvement. Her Lei has been reviewed and is appropriate. Review of Systems: General: No recent weight changes, no fever, no sleep disturbances Respiratory: No cough, no shortness of air, no recurring pulmonary infections Cardiovascular/peripheral vascular: No chest pain, no palpitations, no edema, no shortness of breath Gastrointestinal: No new onset incontinence, normal bowel movements reported Genitourinary: No new onset incontinence Musculoskeletal: Neck pain, headache, bilateral shoulder pain, arm pain Psychiatric: [Normal mood/affect] Neurological: [Denies weakness in extremities], [denies balance issues] Objective:: Physical Exam: General: Alert and oriented x3, no acute distress, pleasant and cooperative Lungs: Respirations even and unlabored, symmetrical chest expansion Eyes: PERRL Musculoskeletal: Flexion and extension of cervical [spine] somewhat guarded secondary to pain, [antalgic gait noted] positive Spurling's test Neurological: Speech clear, no gross sensory deficit CLINICAL HISTORY: RIGHT SIDED neck AND SHOULDER pain FINDINGS: Multiplanar MR imaging of the cervical spine was performed without and with contrast. On the sagittal T2-weighted images, disc degeneration is seen at multiple levels. The vertebral alignment is normal. There is no evidence of fracture. No bony mass is identified. The cervical spinal cord has an unremarkable appearance without evidence of mass, edema or syrinx. C2-3: No significant canal stenosis or neural foraminal narrowing is identified. C3-4: Uncovertebral osteophytes with moderate right and mild left neuroforaminal narrowing. C4-5: Annular disc bulge with uncovertebral osteophytes and mild bilateral neuroforaminal narrowing. C5-6: Disc osteophyte complex with severe bilateral neuroforaminal narrowing. There is moderate central canal stenosis with AP diameter thecal sac measuring 6 mm. C6-7: Disc osteophyte complex with severe bilateral neuroforaminal narrowing. There is mild central canal stenosis with the AP diameter of the thecal sac measuring 9 mm. C7-T1: No significant canal stenosis or neural foraminal narrowing is identified. No abnormal contrast enhancement is seen on the postcontrast images. IMPRESSION: Multilevel degenerative disc disease with severe bilateral neuroforaminal narrowing and mild to moderate central canal stenosis at C5-6 and C6-7. Reviewed, Interpreted and Dictated by Garrick Bro III, MD Transcribed by Lisset Pierre Authenticated and [facility] Assessment:: Degenerative disc disease thoracic and cervical spine with cervical and thoracic radiculopathy symptoms, bilateral shoulder pain, cervical spinal stenosis Plan:: Patient is experiencing significant pain in her neck with limited range of motion and a positive Spurling's test. I have discussed with patient that she may benefit from a cervical epidural steroid injection. Risk and benefits were discussed with patient and she would like to proceed forward with this plan of care. Patient has tried and failed conservative therapies. I have discussed with the patient per her request regarding the cost regarding this injection. I have counseled her to contact her insurance as well as the financial services department or billing department here at [facility] for exact amounts. Patient agrees with this plan of care. We will schedule the patient for a BRANDI C5-C6 under fluoroscopy where she has her most significant stenosis. Patient has been instructed to contact the clinic with any concerns before the next appointment. Dr. Campos has reviewed this note and agrees with this plan of care. This note was dictated using voice recognition software and make contain errors or omissions. [facility] Disclaimer: The information contained in this section may have been updated after the patient was seen, as this information can be updated by other users. Medical History Migraine HTN (hypertension) Hypothyroid GERD (gastroesophageal reflux disease) Family History Other No significant family history Social History Smoking Status: Never smoker alcohol intake: never substance use type: denies use current occupational status: other Travel in the last 8 weeks: None caffeine: No
== END 2023-07-05 23:59 | disposition home or self-care (01) ==
LOC: SC.PAIN 09:21
PROVIDERS: PCP Internal Medicine; Visit Provider Nurse Practitioner Family
DX: M50.122 Cervical disc disorder at C5-C6 level with radiculopathy (principal); M51.14 Intervertebral disc disorders with radiculopathy, thoracic region; M48.02 Spinal stenosis, cervical region; M25.511 Pain in right shoulder; M25.512 Pain in left shoulder
CPT/HCPCS: 99212; G0463

== ENCOUNTER 2023-07-25 09:19 | Day surgery (SDC) | payer MEDICARE, SELFPAY ==
[2023-07-25 09:46] VITALS: BP 151/55; PULSE 55; RESP 18; O2SAT 98; BMI 23.6
[2023-07-25] MEDS: methylPREDNISolone ACETATE 80MG/ML VIAL 80 MG (09:48)
--- NOTE | 2023-07-25 09:48 | P.PCN_ITS ---
Procedure Date: 07/25/23 Time: 09:50 Anesthesiologist:: Ketan Smith CRNA Complications:: None Pre-procedure Diagnosis:: Degenerative disc lumbar spine multiple levels. Lumbar radiculopathy. Degenerative disc cervical spine multiple levels. Cervical radiculopathy. Cervical spondylosis. Post-procedure Diagnosis:: Same. Indications for Procedure:: Patient is a very pleasant 88-year-old female comes our clinic today for cervical epidural steroid injection. Patient reports posterior cervical neck pain as well as bilateral arm radicular symptoms at times. She rates her pain 8/10. Patient states pain increases with activity requiring flexion, extension, left and right rotation of the cervical spine. Procedure Details:: Procedure:Cervical epidural steroid injection Informed consent was obtained and the risks and benefits of the procedure were explained to the patient. The patient was taken to the procedure room and noninvasive monitors placed, including noninvasive blood pressure cuff and pulse oximeter. The neck was prepped using Chloraprep as a cleansing solution. The C6- C7 interspace was viewed using fluroscopy. The skin and subcutaneous tissues were anesthetized using lidocaine 1.5% and a 25-gauge needle. After this an 18- gauge Touhy epidural needle was placed into the C6-C7 interspace under fluroscopy guidance and advanced using loss of resistance to air until the epidural space was encountered. After confirmation of needle placement in the epidural space using contrast dye, a solution containing normal saline, 2 mL and Depo-Medrol 80 mg was incrementally injected into the cervical epidural space.~ The patient tolerated the procedure well with no complications. The patient was observed in the Pain Clinic and then discharged home neurologically intact. Plan and Disposition:: Patient was discharged without incident.
[2023-07-25 09:50] VITALS: BP 187/67; PULSE 53; RESP 16; O2SAT 99
[2023-07-25 09:52] VITALS: BP 187/67; PULSE 56; RESP 18; O2SAT 98
[2023-07-25] MEDS: IOPAMIDOL-200 (41%);10ML VIAL 10 ML IV (09:53)
[2023-07-25 09:56] VITALS: BP 151/55; PULSE 59; RESP 18; O2SAT 98
== END 2023-07-25 09:57 | disposition home or self-care (01) ==
PROVIDERS: PCP Internal Medicine; Visit Provider Nurse Anesthetist, Certified Registered
DX: M50.123 Cervical disc disorder at C6-C7 level with radiculopathy (principal); M51.16 Intervertebral disc disorders with radiculopathy, lumbar region; M47.22 Other spondylosis with radiculopathy, cervical region
CPT/HCPCS: 62321; J1010; Q9966

== ENCOUNTER 2023-08-09 11:07 | Outpatient (POV) | payer MEDICARE, SELFPAY ==
[2023-08-09 11:16] VITALS: BP 139/70; PULSE 56; RESP 18; O2SAT 100; BMI 23.3
--- NOTE | 2023-08-09 11:25 | EXP.PAIN.SOA ---
[facility] Pain Management SOAP Note Subjective:: Patient is a pleasant 88-year-old female who presents today for follow-up of cervical epidural steroid injection C6-C7 on 07/25/2023. Today she rates her pain a 3 out of 10 in her neck and states that she has had at least 50% improvement following this injection and feels like it still helping. Patient states she has been able to do more around her home due to the improved function. Patient does state however she is having more pain in her low back and legs. She feels like she has a lot of weakness and that her legs are going to give out. Patient denies any new trauma or injury. She does describe this pain as an aching, throbbing sensation with some numbness into her legs. Patient does also state that she often is very stiff in the mornings. Patient does state the pain interferes with her ability perform activities of daily living such as cooking and cleaning. Patient is interested in possible injection therapy for the neck and low back pain. Patient is prescribed Percocet from her primary care provider and compounded cream from our office. She denies any side effects from this medication. Her Lei has been reviewed and is appropriate. Review of Systems: General: No recent weight changes, no fever, no sleep disturbances Respiratory: No cough, no shortness of air, no recurring pulmonary infections Cardiovascular/peripheral vascular: No chest pain, no palpitations, no edema, no shortness of breath Gastrointestinal: No new onset incontinence, normal bowel movements reported Genitourinary: No new onset incontinence Musculoskeletal: Low back pain, bilateral leg pain Psychiatric: [Normal mood/affect] Neurological: [Denies weakness in extremities], [denies balance issues] Objective:: Physical Exam: General: Alert and oriented x3, no acute distress, pleasant and cooperative Lungs: Respirations even and unlabored, symmetrical chest expansion Eyes: PERRL Musculoskeletal: Flexion and extension of lumbar [spine] somewhat guarded secondary to pain, [antalgic gait noted] Neurological: Speech clear, no gross sensory deficit Assessment:: Degenerative disc disease of cervical and thoracic spine with cervical and thoracic radiculopathy symptoms, bilateral shoulder pain, cervical spinal stenosis, low back pain with lumbar radiculopathy symptoms Plan:: Patient has had significant improvement following her cervical epidural and does not require any additional injection therapy for her neck at this time. Patient however is experiencing worsening pain in her low back and legs with limited range of motion and increased weakness. I have discussed with patient that she may benefit from lumbar epidural steroid injection. Risk and benefits were discussed with patient and she would like to proceed forward with this plan of care. Patient has tried and failed conservative therapy for longer than 6 weeks and in between injections with minimal improvement. We will schedule the patient for an LESI L4-L5 under fluoroscopy. Patient is not on any blood thinners. Patient has been instructed to contact the clinic with any concerns before the next appointment. Dr. Campos has reviewed this note and agrees with this plan of care. This note was dictated using voice recognition software and make contain errors or omissions. [facility] Disclaimer: The information contained in this section may have been updated after the patient was seen, as this information can be updated by other users. Medical History Migraine HTN (hypertension) Hypothyroid GERD (gastroesophageal reflux disease) Family History Other No significant family history Social History Smoking Status: Never smoker alcohol intake: never substance use type: denies use current occupational status: other Travel in the last 8 weeks: None caffeine: No
== END 2023-08-09 23:59 | disposition home or self-care (01) ==
LOC: SC.PAIN 11:08
PROVIDERS: PCP Internal Medicine; Visit Provider Nurse Practitioner Family
DX: M50.123 Cervical disc disorder at C6-C7 level with radiculopathy (principal); M51.14 Intervertebral disc disorders with radiculopathy, thoracic region; M25.511 Pain in right shoulder; M25.512 Pain in left shoulder; M48.02 Spinal stenosis, cervical region; M54.50 Low back pain, unspecified
CPT/HCPCS: 99212; G0463

== ENCOUNTER 2023-08-24 15:36 | Outpatient (CLI) | payer MEDICARE, SELFPAY ==
--- NOTE | 2023-08-24 15:37 | MR_ITS ---
FINAL REPORT TECHNIQUE: Multiplanar MR without contrast CLINICAL HISTORY: radicular pain, muscle weakness FINDINGS: Sagittal images show normal vertebral height. There is mild levoscoliosis. There is lateral subluxation of L4 on 5. No AP subluxation identified. Marrow signal pattern is unremarkable. L1-2: Mild annular disc bulge and mild facet arthropathy. L2-3: Mild annular disc bulge and facet overgrowth. Mild central canal stenosis and mild bilateral neural foraminal narrowing. L3-4: Mild annular disc bulge and moderate facet arthropathy. Mild central canal stenosis. Moderate bilateral neural foraminal narrowing. L4-5: Moderate annular disc bulge and facet arthropathy. Moderate central canal stenosis. Moderate bilateral neural foraminal narrowing. L5-S1: Minimal annular disc bulge. Moderate facet arthropathy and moderate bilateral neural foraminal narrowing. IMPRESSION: Multilevel disc disease, most pronounced at L4-5. Reviewed, Interpreted and Dictated by Chelle Harmon MD Transcribed by Jennifer Mackenzie Authenticated and [facility]
== END 2023-08-24 23:59 | disposition home or self-care (01) ==
LOC: RAD 15:37
PROVIDERS: PCP Internal Medicine; Visit Provider Internal Medicine
DX: M54.9 Dorsalgia, unspecified (principal); M54.16 Radiculopathy, lumbar region; M62.81 Muscle weakness (generalized)
CPT/HCPCS: 72148

== ENCOUNTER 2023-08-29 11:05 | Day surgery (SDC) | payer MEDICARE, SELFPAY ==
[2023-08-29 11:15] VITALS: BP 151/73; PULSE 54; RESP 16; TEMP 36.3; O2SAT 99; BMI 23.3
[2023-08-29] MEDS: methylPREDNISolone ACETATE 80MG/ML VIAL 80 MG (11:22)
[2023-08-29 11:23] VITALS: BP 143/57; PULSE 56; RESP 18; O2SAT 98
--- NOTE | 2023-08-29 11:24 | EXP.PAIN.PRO ---
Procedure Date: 08/29/23 Time: 11:20 Anesthesiologist:: Ketan Smith CRNA Complications:: None Pre-procedure Diagnosis:: Degenerative disc lumbar spine multilevels. Lumbar radiculopathy. Lumbar spondylosis. Multilevel lumbar facet arthropathy. Post-procedure Diagnosis:: Same. Indications for Procedure:: Patient is a very pleasant 88-year-old female that comes to our clinic today for lumbar epidural steroid injection at the L4-5 level. Patient reports low back pain as well as bilateral hip and leg radicular symptoms at times. She rates her pain 7/10. Procedure Details:: Procedure: Lumbar epidural steroid injection under fluoroscopy Informed consent was obtained and the risks and benefits of the procedure were explained to the patient. The patient was taken to the procedure room and noninvasive monitors placed, including noninvasive blood pressure cuff and pulse oximeter. The back was viewed using C-arm Fluoroscopy and prepped using Chloraprep as a cleansing solution and the L4-L5 interspace was palpated. Skin and subcutaneous tissues were anesthetized using lidocaine 1.5% and a 25-gauge needle. After this, an 18-gauge Touhy epidural needle was placed into the L4-L5 interspace and advanced using fluoroscopic guidance and loss of resistance to air until the epidural space was encountered. After confirmation of needle placement in the epidural space, with dye, a solution containing normal saline, 3 mL and Depo-Medrol 80 mg were incrementally injected into the lumbar epidural space. The patient tolerated the procedure well with no complications. The patient was observed in the Pain Clinic and then discharged home neurologically intact. Plan and Disposition:: Patient was discharged without incident.
[2023-08-29 11:25] VITALS: BP 144/63; PULSE 58; RESP 18; O2SAT 99
[2023-08-29 11:26] VITALS: BP 143/57; PULSE 56; RESP 18; O2SAT 98
== END 2023-08-29 11:25 | disposition home or self-care (01) ==
PROVIDERS: PCP Internal Medicine; Visit Provider Nurse Anesthetist, Certified Registered
DX: M47.26 Other spondylosis with radiculopathy, lumbar region (principal); M51.36 Other intervertebral disc degeneration, lumbar region
CPT/HCPCS: 62323; J1010

== ENCOUNTER 2023-09-20 12:40 | Outpatient (CLI) | payer MEDICARE, SELFPAY ==
--- NOTE | 2023-09-20 12:41 | MM_ITS ---
PROCEDURE INFORMATION: Exam: MG Bilateral Screening 3D Mammography Exam date and time: 09/20/2023 12:26 PM Age: 88 years old Clinical indication: Screening mammogram TECHNIQUE: Imaging protocol: Bilateral Screening tomosynthesis and 2D mammography including computer-aided detection (CAD) when performed. COMPARISON: No relevant prior studies available. FINDINGS: MAMMOGRAPHY: Breast composition: The breast is heterogeneously dense, which may obscure small masses. Mass: None. Architectural distortion: No new or suspicious architectural distortion. Calcifications: No new or suspicious calcifications are present Asymmetric density: No new or suspicious asymmetric density is present Skin thickening: None. Axillary adenopathy: None. IMPRESSION: No mammographic evidence of malignancy. Recommend annual screening mammography unless otherwise clinically indicated. ASSESSMENT: BI-RADS category 1: Negative.
== END 2023-09-20 23:59 | disposition home or self-care (01) ==
LOC: RAD 12:41
PROVIDERS: PCP Internal Medicine; Visit Provider Internal Medicine
DX: Z12.31 Encounter for screening mammogram for malignant neoplasm of breast (principal)
CPT/HCPCS: 77063; 77067

== ENCOUNTER 2023-11-02 10:40 | Outpatient (CLI) | payer MEDICARE, SELFPAY ==
[2023-11-02 19:58] LABS: Microalbumin/Creatinine Ratio 5.2
[2023-11-02 20:14] LABS: Creatinine,Urine Random 125 mg/dL (Not Estab.)
== END 2023-11-02 23:59 | disposition home or self-care (01) ==
LOC: LAB.DROPOF 11-03 11:13
PROVIDERS: PCP Internal Medicine; Visit Provider Internal Medicine
DX: R73.03 Prediabetes (principal)
CPT/HCPCS: 82043; 82570

== ENCOUNTER 2024-03-28 10:10 | Outpatient (CLI) | payer MEDICARE, SELFPAY ==
[2024-03-28 18:33] LABS: Basophils % 0.8 % (0.1-2.0); Eosinophils # 0.2 K/mm3 (0.0-0.4); Eosinophils % 3.1 % (0.1-12.0); Hematocrit 37.9 % (37.0-47.0); Hemoglobin 12.4 g/dL (12.2-16.2); Lymphocytes % 40.8 % (10-50); Mean Corpuscular HGB Conc 32.7 g/dL (31.8-35.4); Mean Corpuscular Volume 97.9 fl (81-99); Mean Platelet Volume 12.7 fl (7.4-10.4); Monocytes # 0.5 K/mm3 (0.1-1.0); Neutrophils # 2.2 K/mm3 (1.8-7.8); Neutrophils % 45.1 % (37.0-80.0); Platelet Count 157 K/mm3 (142-424); Red Blood Count 3.87 M/mm3 (4.20-5.40); Red Cell Distribution Width 12.7 % (11.5-17.5); White Blood Count 4.9 K/mm3 (4.8-10.8)
[2024-03-28 19:21] LABS: Chloride 103 mmol/L (98-107); Potassium 4.6 mmoL/L (3.5-5.1); Sodium 138 mmol/L (136-145)
[2024-03-28 19:24] LABS: Alanine Aminotransferase 21 U/L (12-78); Albumin/Globulin Ratio 1.4 (1.1-1.8); Alkaline Phosphatase 81 U/L (38-126); Anion Gap 12.6 mEq/L (5-15); Aspartate Amino Transferase 34 U/L (14-36); Bilirubin,Total 0.5 mg/dl (0.2-1.3); Blood Urea Nitrogen 12 mg/dl (7-17); Calcium 9.6 mg/dl (8.4-10.2); Carbon Dioxide 27 mmol/L (22.0-30.0); Estimated Glomerular Filt Rate 59 ml/min (>60); GFR (African American) 71 ML/MIN (>60); Globulin 2.8 g/dL (1.3-3.2); Glucose 80 mg/dl (74-100); Total Protein,Serum 6.8 g/dl (6.3-8.2)
[2024-03-28 19:39] LABS: 25-OH Vitamin D, Total 56.7 ng/mL (30-100)
[2024-03-28 19:56] LABS: Thyroid Stimulating Hormone 0.55 uIU/mL (0.465-4.68)
[2024-03-28 20:37] LABS: Microalbumin < 6.000 mg/L (0-16.7)
[2024-03-28 20:49] LABS: Creatinine,Urine Random 109 mg/dL (Not Estab.)
== END 2024-03-28 23:59 | disposition home or self-care (01) ==
LOC: LAB.DROPOF 03-29 09:59
PROVIDERS: PCP Internal Medicine; Visit Provider Internal Medicine
DX: E05.90 Thyrotoxicosis, unspecified without thyrotoxic crisis or storm (principal); E78.2 Mixed hyperlipidemia; R29.818 Other symptoms and signs involving the nervous system; R51.9 Headache, unspecified
CPT/HCPCS: 80053; 82043; 82306; 82570; 84443; 85025

== ENCOUNTER 2024-07-10 10:22 | Emergency (ER) | payer MEDICARE, SELFPAY ==
[2024-07-10 10:34] VITALS: BP 153/89; PULSE 50; O2SAT 98
--- OUTSIDE RECORDS SUMMARY | 2024-07-10 10:35 | XMS_ITS | Data Portability ---
Author Organization [place] - [facility] - [facility] SONA Rojas ADMIN Address [address] [place] [address] Assessment Encounter Date Assessment Date Assessment LastModified by Organization Details LastModified Time 10/24/2022 10/24/2022 This is a 87 yea r old female referred to [facility] by Dr. Gramaoj for management of back pain. She denies DM, anti-coagulation, and smoking. Of note, the patient is prescribed Gabapentin through Dr. Gramajo to assist in managing cervical pain. She presents to the clinic today for establishment of care. The patient complains of pain in her upper back, that goes down the right side, across her lower back, and into the back of her left leg to her knee. She states the pain has become more exacerbated since June. The pain often wakes her in the middle of night, and causes her trouble with ambulation at times. She complains the left leg pain causes her knee to buckle, and she nearly falls intermittently. The patient has been unable to participate in physical therapy due to increased pain, but is very active at home performing daily activities and chores in an effort to maintain function. However, most recently her daily activities, sleep, and quality of life have been negatively effected due to her pain. Based on history and physical exam, I believe this patient's pain is associated with spinal enthesopathy, and greater trochanteric bursitis. To Address this patient's pain: I will proceed with scheduling a right trigger point injection to target the latissimus dorsi, rhomboid, and levator scapulae to target this patient's myofascial pain. I will also schedule a left greater trochanteric bursa injection, in an effort to alleviate this patient's left lower extremity pain. I had a detailed discussion with the patient today regarding the procedures, and answered all questions/concern s. * Schedule: TPI right rhomboid, levator scapulae, latissimus dorsi * Schedule: Left GTB injection ([place]) if the problem persists after the TPI injection * Follow Up: Post procedures (Vanessa) -------- I have discussed in great detail our potential treatment options which would include a rehabilitative approach to care. This program would include medication management, Physical Therapy, consideration for interventional procedures as appropriate, and lifestyle modification (diet, weight loss, exercise, smoking/tobacco cessation, holistic approach including meditation and yoga). The patient understands and agrees prior to proceeding with this plan. _ __ __ __ __ __ __ __ __ __ __ __ __ __ __ __ __ __ __ __ __ __ __ __ __ __ __ __ _ I counseled the patient extensively and informed of the risks of the procedure, including the risk of paralysis, nerve damage, respiratory arrest, arrhythmias, stroke, weakness, and infection, which although very low, could result in or disability. The patient acknowledged to me that they understand and accept these risks. RN EDUCATION Extensive coordination of care provided by RN to educate patient on upcoming procedure and to coordinate obtaining extensive incoming medical records. ------ RECORDS REVIEW: As per clinic policy, we will have the patient sign a release to obtain previous imaging and clinical notes. _ __ __ __ __ __ __ __ __ __ __ __ __ __ __ __ __ __ __ __ __ __ __ __ __ __ __ __ _ PSYCH: Pain affecting Neuro-psych behavior was discussed. Discussed about pain psychological counseling as a part of the multimodal approach to pain treatment. _ __ __ __ __ __ __ __ __ __ __ __ __ __ __ __ __ __ __ __ __ __ __ __ __ __ __ __ _ REHABILITATION: Discussed with the patient the importance of diet, daily physical activity and PT. Discussed with the patient the need to be scheduled for physical therapy since physical therapy will prolong the benefits of the procedure and interventions. _ __ __ __ __ __ __ __ __ __ __ __ __ __ __ __ __ __ __ __ __ __ __ __ __ __ __ __ _ MACKENZIE: [id number] I have reviewed patient's MACKENZIE report prior to prescribing Schedule II, III, and IV medications that require review by law.. [email or web address] Not available 10/26/2022 08:39:12 11/29/2022 11/29/2022 This is a 87 yea r old female referred to [facility] by Dr. Gramajo for management of back pain. She denies DM, anti-coagulation, and smoking. Of note, the patient is prescribed Gabapentin through Dr. Gramajo to assist in managing cervical pain. She presents to the clinic today to follow up post TPI of the right shoulder muscles, completed on 11/13/22. The patient reports the procedure was minimally beneficial in providing pain relief. She reports a couple nights ago, the pain was so excruciating it woke her up at 2:30am, and she had to go see her primary care physician. The patient complains of pain in her upper back, that goes down the right side, across her lower back, and into the back of her left leg to her knee. She states the pain has become more exacerbated since June. The pain often wakes her in the middle of night, and causes her trouble with ambulation at times. She complains the left leg pain causes her knee to buckle, and she nearly falls intermittently. The patient has been unable to participate in physical therapy due to increased pain, but is very active at home performing daily activities and chores in an effort to maintain function. However, most recently her daily activities, sleep, and quality of life have been negatively effected due to her pain. Based on history and physical exam, I believe this patient's pain is associated with spinal enthesopathy, and greater trochanteric bursitis. To Address this patient's pain: I will proceed with scheduling a left greater trochanteric bursa injection to target this patient's trochanteric bursitis pain. I will perform this procedure while awaiting the requested imaging of the spine. Since the patient reports pain from multiple origins, and has not had any imaging completed recently, I will order cervical, thoracic, and lumbar x-rays to assess the degree of the degenerative process. I had a detailed discussion with the patient today regarding the procedures, and answered all questions/concern s. * Schedule: Left GTB * Order: Cervical, Thoracic, Lumbar X-Ray * Follow Up: Post procedure (discuss imaging at this follow up as well) ------ I have discussed in great detail our potential treatment options which would include a rehabilitative approach to care. This program would include medication management, Physical Therapy, consideration for interventional procedures as appropriate, and lifestyle modification (diet, weight loss, exercise, smoking/tobacco cessation, holistic approach including meditation and yoga). The patient understands and agrees prior to proceeding with this plan. _ __ __ __ __ __ __ __ __ __ __ __ __ __ __ __ __ __ __ __ __ __ __ __ __ __ __ __ _ I counseled the patient extensively and informed of the risks of the procedure, including the risk of paralysis, nerve damage, respiratory arrest, arrhythmias, stroke, weakness, and infection, which although very low, could result in or disability. The patient acknowledged to me that they understand and accept these risks. RN EDUCATION Extensive coordination of care provided by RN to educate patient on upcoming procedure and to coordinate obtaining extensive incoming medical records. ------ RECORDS REVIEW: As per clinic policy, we will have the patient sign a release to obtain previous imaging and clinical notes. _ __ __ __ __ __ __ __ __ __ __ __ __ __ __ __ __ __ __ __ __ __ __ __ __ __ __ __ _ PSYCH: Pain affecting Neuro-psych behavior was discussed. Discussed about pain psychological counseling as a part of the multimodal approach to pain treatment. _ __ __ __ __ __ __ __ __ __ __ __ __ __ __ __ __ __ __ __ __ __ __ __ __ __ __ __ _ REHABILITATION: Discussed with the patient the importance of diet, daily physical activity and PT. Discussed with the patient the need to be scheduled for physical therapy since physical therapy will prolong the benefits of the procedure and interventions. _ __ __ __ __ __ __ __ __ __ __ __ __ __ __ __ __ __ __ __ __ __ __ __ __ __ __ __ _ MACKENZIE: [id number] I have reviewed patient's MACKENZIE report prior to prescribing Schedule II, III, and IV medications that require review by law.. [email or web address] Not available 11/29/2022 11:03:48 Plan of Treatment Reminders Order Date Submit Date Provider Last Modified By Organization Details Last Modified Time Details Appointments None recorded. Lab None recorded. Referral None recorded. Procedures injection , trigger point (PROC) - 42190, 03090; Right latissimu s dorsi, rhomboid, levator scapulae [email or web address] MD, [address], [address], [place], [address], 3 14:32:31 arthrocen tesis, aspiratio n and/or injection , major joint or bursa (PROC) - , 14154, left greater trochante r bursa 20[id number] MD, [address], [facility] [address], [place], [address], 3 11:29:06 Surgeries None recorded. Imaging XR, lumbar spine 2022 023 [facility] (Registration ), [address] [place], [address], 3 11:17:06 XR, thoracic spine 2022 023 [facility] (Registration ), [address] [place], [address], 3 11:17:06 XR, cervical spine 2022 023 [facility] (Registration ), [address] [place], [address], 3 11:17:06 Medication Orders None recorded. Patient TargetsNo targets recorded. Patient InstructionsNo instructions recorded. Reason for Referral None Reported. Results Created Date Observation Date Name Description Value Unit Range Abnormal Flag Note LastModifiedBy Organization Detail LastModifiedTime 11/30/1909/27/2013 CT, cervi steve spine , w/o contr ast No observ ation record ed. [email or web address] Not Available 11/29 09:55:12 11/30/1911/29/2022 XR, thora cic spine , 2 view [facility] [address] [place] [address] Phone: Fax: Name: JENNIFER GANDARA Exam Date: : 1934 Age 87 Gender : F Access ion: [id number] Physic james: ELIANE MASCORRO Facili ty: [facility] Facili ty HSV: Outpat ient Exam: THORAC IC SPINE 2V THORAC IC SPINE HISTOR Y: Back pain FINDIN GS: 3 views of the thorac ic spine demons trate no eviden ce of fractu re. There is levocu rvatur e. There is modera te to severe degene rative change . IMPRES KEN: No acute bony abnorm ality. Spondy losis as above. Films review ed , interp reted and dictat ed by Dr.Pop carreon Transc ribed by Jose David Alamo PA-C. Dictat ed By: ANDREW LAUGHLIN Transc ribed By: Andrew Laughlin Transc ribed On: 1:03 PM Electr onical ly signed by: ANDREW LAUGHLIN [facility] you [facility] Legall y authen ticate d by POPE ANDREW Nieves 11-29 13:03: 50 CC'ed Logic: Orderi ng Provid er: SEGUNDO DEL RIO Attend ing Provid er: SEGUNDO DEL RIO Admitt ing Provid er: SEGUNDO [email or web address] [place] [address] - Physical Therapy [address] [place] [address], [place], [address], 12/01/2022 09:20:15 11/30/19 23 11/29/2022 lumba r spine 2 to 3V [facility] [address] [place] [address] Phone: Fax: Name: JENNIFER GANDARA Exam Date: : 1934 Age 87 Gender : F Access ion: [id number] Physic james: ELIANE MASCORRO [place] ty: [place] Facili ty HSV: Outpat ient Exam: LUMBAR SPINE 2 TO 3V LUMBAR SPINE, 3 VIEWS HISTOR Y: Back pain FINDIN GS: No fractu re is identi fied. There is modera te to severe degene rative change . There is retrol isthes is of L3 on L4. There is displa cement at L3-L4 and L4-L5. There are signif icant degene rative facet change s. IMPRES KEN: No acute bony abnorm ality. Spondy losis as above. Films review ed , interp reted and dictat ed by Dr.Pop carreon Transc ribed by Jose David Alamo PA-C. Dictat ed By: ANDREW LAUGHLIN Transc ribed By: Andrew Laughlin Transc ribed On: 1:04 PM Electr onical ly signed by: ANDREW LAUGHLIN Thank you [facility] Legall y authen ticate d by POPE ANDREW Nieves 11-29 13:04: 32 CC'ed Logic: Orderi ng Provid er: SEGUNDO DEL RIO Attend ing Provid er: SEGUNDO DEL RIO Admitt ing Provid er: SEGUNDO DEL RIO [email or web address] [place] [address] - Physical Therapy [address] [facility], [place], [address], 12/01/2022 09:20:15 11/30/19 23 11/29/2022 cervi steve spine 2 to 3V [facility] [address] [place] [address] Phone: Fax: Name: JENNIFER GANDARA Exam Date: 023 : 1934 Age 87 Gender : F Access ion: [id number] Physic james: ELIANE MASCORRO Facili ty: [facility] Facili ty HSV: Outpat ient Exam: CERVIC AL SPINE 2 TO 3V CERVIC AL SPINE HISTOR Y: Neck pain FINDIN GS: No fractu re is presen t. There are modera te degene rative change s. No prever tebral soft tissue swelli ng is seen. There is slight retrol isthes is of C4 on C5. IMPRES KEN: Spondy losis as above. Films review ed , interp reted and dictat ed by Dr.Pop carreon Transc ribed by Jose David Alamo PA-C. Dictat ed By: ANDREW LAUGHLIN Transc ribed By: Andrew Laughlin Transc ribed On: 023 1:05 PM Electr onical ly signed by: ANDREW LAUGHLIN Thank you for referr JENNIFER Hodges to [facility]. Legall y authen ticate d by POPE ANDREW Nieves 0 11-29 13:05: 09 CC'ed Logic: Orderi ng Provid er: SEGUNDO DEL RIO Attend ing Provid er: SEGUNDO DEL RIO Admitt ing Provid er: SEGUNDO montes de ocason[address] [place] [address] - Physical Therapy [address] [facility], [place], [address], 12/01/2022 09:20:15 Result Notes None recorded. Problems Name Problem SNOMED Code Status Onset Date Resolution Date Notes Provider Name and Address Organization Details Recorded Time Spinal enthesopath y 65837601 Active 2022 [place] [facility], [place] - [facility] - [place] [facility] [place] 3 09:59:27 Trochanteri c bursitis of left hip 4336607026663 03 Active 2022 [place] [facility], [place] - [facility] - [place] [facility] [place] 3 09:59:27 Radicular pain 09809893 Active 2022 Liliane lion, ANTHONY MAGALLANES - [place] [facility] [place] 3 09:59:27 Myofascial pain 718905602 Active 2022 Liliane lion, ANTHONY MAGALLANES - [place] [facility] [place] 3 09:59:27 Notes:Some problems listed i n Documents: #[id number], #[id number] could not be added to this patient's chart. Please review these documents and add these problems to the patient's chart manually as needed. Problem Notes None recorded. Procedures Surgical History Date Name Laterality Status Provider Name and Address Organization Details Recorded Time 3 Injection Only completed Alma Quintanilla [place] [facility] [place] 11/14/2022 10:30:52 Imaging Results Imaging Date Name Status LastModified by [facility] Details LastModified Time 09/27/2013 CT, cervical spine, w/o contrast [place] [address] Information not available 11/29/2022 09:55:12 11/29/2022 XR, thoracic spine, 2 view completed [address] [facility] [address] [place], [address], 12/01/2022 09:20:15 11/29/2022 lumbar spine 2 to 3V completed [address] [facility] [address] [place], [address], 12/01/2022 09:20:15 11/29/2022 cervical spine 2 to 3V completed [address] [facility] [address] [place], [address], 12/01/2022 09:20:15 Procedure Notes None recorded. Medical Equipment None Reported. Allergies No known drug allergies Medications Name Sig Start Date Stop Date Status Note LastModified by Organization Details LastModified Time ciprofloxac in 500 mg tablet TAKE 1 TABLET BY MOUTH TWICE DAILY 10/24 completed Not Available Not Available Not Available sulfamethox azole 800 mg-trimetho prim 160 mg tablet TAKE 1 TABLET BY MOUTH TWICE DAILY 10/24 completed Not Available Not Available Not Available tramadol 50 mg tablet TAKE 1 TABLET BY MOUTH TWICE DAILY NEEDED 10/24 completed Not Available Not Available Not Available butalbital- acetaminoph en-caffeine 50 mg-325 mg-40 mg tablet TAKE 1 TABLET BY MOUTH TWICE DAILY NEEDED FOR HEADACHE active Not Available Not Available No t Available simvastatin 20 mg tablet TAKE 1 TABLET BY MOUTH EVERY DAY IN THE EVENING active Not Available Not Available No t Available methimazole 5 mg tablet TAKE 1 TABLET BY MOUTH TWICE DAILY active Not Available Not Available No t Available docusate sodium 100 mg capsule TAKE 1 CAPSULE BY MOUTH EVERY DAY 10/24 completed Not Available Not Available Not Available gabapentin 300 mg capsule TAKE ONE CAPSULE BY MOUTH EVERY NIGHT AT BEDTIME NEEDED active Not Available Not Available No t Available omeprazole 20 mg capsule,del ayed release TAKE 1 CAPSULE BY MOUTH EVERY MORNING 10/24 completed Not Available Not Available Not Available metoprolol succinate ER 25 mg tablet,exte nded release 24 hr TAKE 1 TABLET BY MOUTH EVERY DAY active Not Available Not Available No t Available methylpredn isolone 4 mg tablets in a dose pack FOLLOW PACKAGE DIRECTION S 10/24 completed Not Available Not Available Not Available nitrofurant oin monohydrate /macrocryst als 100 mg capsule TAKE 1 CAPSULE BY MOUTH EVERY 12 HOURS WITH MEALS FOR 7 DAYS 10/24 completed Not Available Not Available Not Available Fioricet NEEDED active Not Available Not A vailable Not Available diclofenac 1 % topical gel APPLY 2 GRAMS TO THE AFFECTED AREA TOPICALLY 4 TIMES DAILY 10/24 completed Not Available Not Available Not Available Vitals Date Recorded Body weight Body temperature Oxygen saturation Oxygen saturation in Arterial blood by Pulse oximetry Heart rate Systolic blood pressure Diastolic blood pressure Provider Name and Address Organization Details Last Updated DateTime 3 95525.2 8 g 97.5 [degF] 92 % 92 % 55 /min 138 mm[Hg] 72 mm[Hg] Janie eBll [facility] - [place] [facility] [place] 3 14:25:22 Date Recorded Body weight Body temperature Oxygen saturation Oxygen saturation in Arterial blood by Pulse oximetry Heart rate Systolic blood pressure Diastolic blood pressure Provider Name and Address Organization Details Last Updated DateTime 3 29177.0 8 g 96.9 [degF] 99 % 99 % 55 /min 132 mm[Hg] 63 mm[Hg] Liliane tian [place] - [facility] & [place] 09:59:45 Social History Question Answer Notes LastModified by Organizat ion Details LastModified Time Tobacco Smoking Status Never Smoker Janie lion, [place] - [facility] & [place] 10/24/2022 14:32:23 Do You Or Have You Ever Used Any Other Forms Of Tobacco Or Nicotine? No Information not available 10/24/2022 Sex: Unknown Functional Status None recorded. Mental Status None recorded. Family History Nothing Reported. Medical History No medical history recorded. Gynecological HistoryNo gynecological history recorded. Obstetrics History GPAL:G 0 P 0 0 0 0 Past Encounters Encounter ID Performer Location Encounter Start Date Encounter Closed Date Diagnosis/Indication Diagnosis SNOMED-CT Code Diagnosis ICD10 Code Diagnosis Note [id number] Eliane Lane MD [facility] is [address] [place] [address] [place] [address] 10/24/2022 12:57:12 10/24/2022 14:30:58 Trochanteric bursitis of left hip 8003683855 85376 M70.62 Spinal enthesopathy 1031 7009 M46.00 M46.03 Radicular pain 49185796 M54.10 Myofascial pain 18101414 [id number] MD [facility] [address] [address] 11/14/2022 09:58:13 11/14/2022 10:34:07 Spinal enthesopathy 93655241 M46.[id number] MD [facility] [address] [place] [address] 11/29/2022 09:39:25 11/29/2022 12:05:47 Trochanteric bursitis of left hip 1639845983 94662 M70.62 Spinal enthesopathy 1031 7009 M46.00 M46.03 Radicular pain 86847371 M54.10 Myofascial pain 60770588 9 M79.10 Pain in ce rvical spine 975172282 M54.2 Thoracic back pain 31431 8004 M54.6 Low back pain 320359648 M54.50 Health Concerns Section Related Observation LastModified by Organization Detai ls LastModified Time None Recorded Concern Status LastModified by Organization Details LastModified Time None Recorded Advance Directives Directive None Recorded Payers Insurance Date Sequence Insurance Name Policy Number Policy Quintero Covered Member ID Quintero Member ID Guarantor Name 09/23/2023 1 [place]MEDIC[place]ACEMENT HMO) [id number] Summer Gandara [id number] 50 Summer Vanessa Gandara Notes Date Note Type Note Provider Name and Address Organization Details Recorded Time 3 text/html This is a 87 year old female referred to [facility] by Dr. Gramajo for management of back pain. She denies DM, anti-coagulation, and smoking. She reports pain in her upper back, that goes down the right side, across her lower back, and into the back of her left leg to her knee. She states the pain has become more exacerbated since June. She presents to the clinic today for establishment of care. Today, the pain is 7/10. Pain is so bad that when she gets up, she has to sit up on the side of the bed before walking. The pain causes her knee to buckle at times. Pain has almost caused her to fall. Pain is severe at night. NSAIDs are not beneficial. Has not done PT. Previously went to [facility] for about 2 years, who sent her to [place] of which she had 2 injections (for he radicular to the RLE). Did not help the pain. Eilane Lane MD [address], [place], [address], [facility] - [place] [facility] [place] 10/26/2022 08:39:19 3 text/html This is a 87 year old female referred to [facility] by Dr. Gramajo for management of back pain. She denies DM, anti-coagulation, and smoking. She reports pain in her upper back, that goes down the right side, across her lower back, and into the back of her left leg to her knee. She states the pain has become more exacerbated since June. She presents to the clinic today to follow up post trigger point injection of the right shoulder muscles on 11/13/2022. Today the pain is 10/10. Pain is so bad that when she gets up, she has to sit up on the side of the bed before walking. The pain causes her knee to buckle at times. Pain has almost caused her to fall. Pain is severe at night. Onset: 5 monthsContext: Worsening over timeCharacter: Aching, DullLocation: Neck, right shoulder, low back, left hipDuration: Constant with fluctuationsIntensity: 10/10Worse: Laying, Prolonged sitting/standing, LiftingBetter: Rest Associated symptoms: Denies saddle anaesthesia, denies acute bowel/bladder changes, denies acute power loss. ADLs: The patient's pain interferes with daily chores, exercise, sleep, relationships, and walking. Current Pain Medications: N/APrior Pain Medications: Minimal benefitNSAIDS/OTC: Minimal BenefitNon-intervention al Tx: Minimal benefitPhysical Therapy: Minimal benefit/Increases painInterventional Tx: N/ASurgery: N/AImaging/Studies: N/A Eliane Lane MD [address] [facility], [place], [address], [facility] & [place] 11/30/2022 15:32:59 OBGyn Episode No OBEpisode recorded.
[2024-07-10 10:36] VITALS: BP 153/86; PULSE 52; RESP 20; TEMP 36.8; O2SAT 95; BMI 23.0
--- OUTSIDE RECORDS SUMMARY | 2024-07-10 10:36 | XMS_ITS | Data Portability ---
Author Organization [facility] Address [address] [place] [address] Assessment Encounter Date Assessment Date Assessment LastModified by Organization Details LastModified Time 09/13/2021 09/13/2021 Summer presents for a wellness visit. 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 She has been noticing that she is tired when she first gets up for a couple of hours in the mornings and then feels better. Her main complaint is shortness of breath with activity and she has never smoked but has had second hand exposure. 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 She had an essentially negative cardiac work up last year. She thinks she notices occasional wheezing. We performed a pulmonary function test last year that was very significant for both obstructive and restrictive disease. The FEV1/FVC ratio is only 65%. We did provide her with some samples of Trelegy to try once a day and she is not using now as she actually feels better. She has actinic keratosis type lesion on the upper left external ear and we recommend the local chemical production technician group that visit [place] weekly. She does have chronic neck pain with known significant degenerative disc disease and arthritis. She did have some physical therapy for this two years ago that helped marginally. She apparently has been seeing an orthopedist in [place] who has tried some back injections but we have no records. In addition the neck pain seems to exacerbate her chronic recurring headaches especially on the left side. She is tolerating this and the gabapentin has helped her at night but we advise her to take it a little earlier in the evening as she is still sleepy for a couple of hours after she wakes up. Labs are reviewed and the TSH/T4 are now normal on the methimazole for the hyperthyroid condition. Remaining labs are basically normal or near normal. Medications are reconciled. Depression screen is negative and fall risk is low. Vaccines are reviewed and she should consider a tetanus update this year at her pharmacy. She has not had the Shingrix and she declines that due to high cost. We continue to encourage healthy lifestyle choices. phong Not available 09/15/2021 16:45:26 12/24/2021 12/24/2021 Summer has some recurrent low back sacroiliac pain and is prone to occasional sciatica. This developed rapidly and hopefully will calm down quickly with treatment. We discussed back stretches. She receives the flu vaccine. phong Not available 12/26/2021 22:48:58 04/15/2022 04/15/2022 Summer follows up on hyperthyroidism and labs are stable. She will continue the daily dose of Methimazole. She has recently had more ruinary frequency and may have a UTI that we will begin empiric treatment for while we await the culture. 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 phong Not available 04/16/2022 21:23:03 09/23/2022 09/23/2022 Summer presents for a wellness visit. 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 She has been noticing that she is tired when she first gets up for a couple of hours in the mornings and then feels better. She does note occasional shortness of breath with activity but she has never smoked although had second hand exposure. 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 She had an essentially negative cardiac work up two years ago and continues to follow up annually with cardiology for mild to moderate pulmonary regurgitation and mild mitral regurgitation. She thinks she notices occasional wheezing. We performed a pulmonary function test previously that was very significant for both obstructive and restrictive disease. The FEV1/FVC ratio was only 65%. We did provide her with some samples of Trelegy to try once a day and she is not using now as she actually feels better. Lately she is having left gluteal pain that radiates down the posterior thigh into the knee area. Previously she has had right sciatica as well. A previous 2017 lumbar spine shows significant degenerative changes with multilevel degenerative disc disease, spondylosis and neuroforaminal narrowing. She does have chronic neck pain with known significant degenerative disc disease and arthritis. She did have some physical therapy for this a couple years ago that helped marginally. She apparently had been seeing an orthopedist in [place] who tried some back injections but we have no records. In addition the neck pain seems to exacerbate her chronic recurring headaches especially on the left side. She is tolerating this and the gabapentin has helped her at night but we advise her to take it a little earlier in the evening as she is still sleepy for a couple of hours after she wakes up. 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 She has been taking some aleve and notices some heartburn so we advise her to resume the omeprazole. The chronic constipation has improved with the Metamucil gummies she is now taking. Labs are reviewed and the TSH/T4 are now normal on low dose methimazole for the hyperthyroid condition. Remaining labs are basically normal or near normal. Medications are reconciled. Depression screen is negative and fall risk is low. Vaccines are reviewed and she should consider a tetanus update this year at her pharmacy. She has not had the Shingrix and she declines that. We recommend she have the annual influenza vaccine and the newest covid booster this fall. We continue to encourage healthy lifestyle choices. phong Not available 09/25/2022 08:57:59 11/28/2022 11/28/2022 Summer continue s to have very sigificant radiculopathy from the cervical spine. She is very frustrated by this and has been going to pain management. She has an appointment tomorrow. Two weeks ago she had trigger point injections that did not really help her. She is not sleeping from the pain and requests an increase in the gabapentin at night and that hopefully will help. She has not had imaging since a CT scan of the neck several years ago. An MRI may well be in order and we have discussed for her to talk with DR. Lane about this tomorrow. She receives the flu vaccine today. phong Not available 11/29/2022 23:21:52 Plan of Treatment Reminders Order Date Submit Date Provider Last Modified By Organization Details Last Modified Time Details Appointments None recorded. Lab culture, urine 2022 023 [facility], [address] [place], [address], 3 06:24:37 urinalysis, dipstick 2022 023 [facility], [address] [place], [address], 3 10:20:06 Referral pain management referral [address], [address], [place], [address], 15:35:01 pain management referral [address], [address], [place], [address], 3 15:35:[address] referral - lesion on left ear 2021 022 [facility], [address] [place] [address] [address], [place], [address], 15:36:16 Procedures None recorded. Surgeries None recorded. Imaging None recorded. Medication Orders gabapentin 300 mg capsule 2022 023 [facility][id number], [address], [place], [place], [id number], 3 16:34:08 diclofenac 1 % topical gel 2022 023 [place] [id number], [address], [place], [place], [id number], 3 14:49:07 omeprazole 20 mg capsule,del ayed release 2022 023 [facility] #[id number], [address], [place], [id number], 3 14:49:08 nitrofurant oin monohydrate /macrocryst als 100 mg capsule 2022 023 [facility] #[id number], [address], [place], [id number], 3 14:28:01 dexamethaso ne sodium phosphate 4 mg/mL injection solution [address] [facility]19342, [address] [place], [id number], 3 10:17:44 methylpredn isolone 4 mg tablets in a dose pack [address] [facility]24157, [address], [id number], 3 10:17:54 tramadol 50 mg tablet 2021 022 [id number], [address], [id number], 3 14:28:13 Patient TargetsNo targets recorded. Patient Instructions Encounter Date Encounter Id Patient Instructions Last Modified By Organization Details Last Modified Time 09/13/2021 [id number] neck pain: care instructions Not available 09/13/2021 15:13:15 neck arthritis: exercises Not available 09/13/2021 15:13:15 12/24/2021 [id number] acute low back pain: exercises Not available 12/24/2021 15:12:17 low back pain: exercises Not available 12/24/2021 15:12:17 09/23/2022 [id number] neck pain: care instructions Not available 09/23/2022 14:49:01 neck arthritis: exercises Not available 09/23/2022 14:49:01 Tdap (tetanus, diphtheria, pertussis) vaccine: what you need to know Not available 09/23/2022 14:49:01 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 for S kin lesion lesion on left ear Referring Physician: Violetta Gramajo [facility], Encounter Date: 09/13/2021 Pain Management Referral for Degeneration of lumbar intervertebral disc Referring Physician: Violetta Gramajo [facility], Encounter Date: 09/23/2022 Pain Management Referral for Degeneration of cervical intervertebral disc Referring Physician: Violetta Gramajo [facility], Encounter Date: 09/23/2022 Results Created Date Observation Date Name Description Value Unit Range Abnormal Flag Note LastModifiedBy Organization Detail LastModifiedTime 01/01/2012/31/2021 CBC AUTO W DIFF WBC 16.1 10 4.5-11 .5 high Not Available [facility] (Lab Registration) [address] [place], [address], 12/31/2021 08:42:52 01/01/2012/31/2021 CBC AUTO W DIFF RBC 4.14 10 4.25-5 .57 low Not Available [facility] (Lab Registration) [address] [place], [address], 12/31/2021 08:42:52 01/01/2012/31/2021 CBC AUTO W DIFF HGB 13.0 g/dL 12.0-1 5.7 Not Available [facility] (Lab Registration) [address] [place], [address], 12/31/2021 08:42:52 01/01/2012/31/2021 CBC AUTO W DIFF HCT 39.8 % 36.0-4 7.0 Not Available [facility] (Lab Registration) [address] [place], [address], 12/31/2021 08:42:52 01/01/2012/31/2021 CBC AUTO W DIFF MCV 96.1 fL 80-95 high Not Available [facility] (Lab Registration) [address] [place], [address], 12/31/2021 08:42:52 01/01/2012/31/2021 CBC AUTO W DIFF MCH 31.4 pg 27.0-3 4.0 Not Available [facility] (Lab Registration) [address] [place], [address], 12/31/2021 08:42:52 01/01/2012/31/2021 CBC AUTO W DIFF MCHC 32.7 g/dL 32.0-3 6.0 Not Available [facility] (Lab Registration) [address] [place], [address], 12/31/2021 08:42:52 01/01/2012/31/2021 CBC AUTO W DIFF platelet count 189 10 150-45 0 Not Available [facility] (Lab Registration) [address] [place], [address], 12/31/2021 08:42:52 01/01/2012/31/2021 CBC AUTO W DIFF RDW 12.5 % 12.3-1 5.1 Not Available [facility] (Lab Registration) [address] [place], [address], 12/31/2021 08:42:52 01/01/2012/31/2021 CBC AUTO W DIFF MPV 11.4 fL 7.4-10 .4 high Not Available [facility] (Lab Registration) [address] [place], [address], 12/31/2021 08:42:52 01/01/2012/31/2021 CBC AUTO W DIFF granulocyte% 80.2 % 40-75 high Not Available [facility] (Lab Registration) [address] [place], [address], 12/31/2021 08:42:52 01/01/2012/31/2021 CBC AUTO W DIFF lymphocyte% 12.1 % 15-57 low Not Available [facility] (Lab Registration) [address] [place], [address], 12/31/2021 08:42:52 01/01/2012/31/2021 CBC AUTO W DIFF monocyte% 5.9 % 4.0-12 .0 Not Available [facility] (Lab Registration) [address] [place], [address], 12/31/2021 08:42:52 01/01/2012/31/2021 CBC AUTO W DIFF eosinophil% 0.8 % 0.0-4. 0 Not Available [facility] (Lab Registration) [address] [place], [address], 12/31/2021 08:42:52 01/01/2012/31/2021 CBC AUTO W DIFF basophil% 0.2 % 0.0-1. 0 Not Available [facility] (Lab Registration) [address] [place], [address], 12/31/2021 08:42:52 01/01/2012/31/2021 CBC AUTO W DIFF immature granulocytes % 0.8 % 0.0-0. 8 Not Available [facility] (Lab Registration) [address] [place], [address], 12/31/2021 08:42:52 01/01/2012/31/2021 CBC AUTO W DIFF granulocyte# 12.90 10 Not Available [facility] (Lab Registration) [address] [place], [address], 12/31/2021 08:42:52 01/01/2012/31/2021 CBC AUTO W DIFF lymphocyte# 1.95 10 Not Available [facility] (Lab Registration) [address] [place], [address], 12/31/2021 08:42:52 01/01/2012/31/2021 CBC AUTO W DIFF monocyte# 0.95 10 Not Available [facility] (Lab Registration) [address] [place], [address], 12/31/2021 08:42:52 01/01/2012/31/2021 CBC AUTO W DIFF eosinophil# 0.13 10 Not Available [facility] (Lab Registration) [address] [place], [address], 12/31/2021 08:42:52 01/01/2012/31/2021 CBC AUTO W DIFF basophil# 0.04 10 Not Available [facility] (Lab Registration) [address] [place], [address], 12/31/2021 08:42:52 01/01/2012/31/2021 CBC AUTO W DIFF immature granulocytes # 0.13 10 Not Available [facility] (Lab Registration) [address] [place], [address], 12/31/2021 08:42:52 01/01/2012/31/2021 CBC AUTO W DIFF manual differential NO Not Available [facility] (Lab Registration) [address] [place], [address], 12/31/2021 08:42:52 01/01/2012/31/2021 CBC AUTO W DIFF note Unles s other mills noted testi ng perfo rmed at: [facility] [address] [place] [address] [phone] Juan zavala MD CLIA: [id number] Not Available [facility] (Lab Registration) [address] [place], [address], 12/31/2021 08:42:52 01/01/20 22 12/31/2021 BASIC METAB OLIC PANEL sodium 136 mmol/ L 136-14 5 Not Available [facility] (Lab Registration) [address] [place], [address], 12/31/2021 08:51:55 01/01/2012/31/2021 BASIC METAB OLIC PANEL potassium 3.8 mmol/ L 3.5-5. 1 Not Available [facility] (Lab Registration) [address] [place], [address], 12/31/2021 08:51:55 01/01/2012/31/2021 BASIC METAB OLIC PANEL chloride 102 mmol/ L 98-107 Not Available [facility] (Lab Registration) [address] [place], [address], 12/31/2021 08:51:55 01/01/2012/31/2021 BASIC METAB OLIC PANEL carbon dioxide 31 mmol/ L 21-32 Not Available [facility] (Lab Registration) [address] [place], [address], 12/31/2021 08:51:55 01/01/2012/31/2021 BASIC METAB OLIC PANEL anion gap 3.0 Not Available [facility] (Lab Registration) [address] [place], [address], 12/31/2021 08:51:55 01/01/2012/31/2021 BASIC METAB OLIC PANEL glucose 101 mg/dL 70-110 Not Available [facility] (Lab Registration) [address] [place], [address], 12/31/2021 08:51:55 01/01/2012/31/2021 BASIC METAB OLIC PANEL blood urea nitrogen 12 mg/dL 7-18 Not Available [facility] (Lab Registration) [address] [place], [address], 12/31/2021 08:51:55 01/01/2012/31/2021 BASIC METAB OLIC PANEL creatinine 0.9 mg/dL 0.6-1. 0 Not Available [facility] (Lab Registration) [address] [place], [address], 12/31/2021 08:51:55 01/01/20 22 12/31/2021 BASIC METAB OLIC PANEL BUN/creatini ne ratio 13.3 ratio 9-21 Not Available [facility] (Lab Registration) [address], [place], [address], 12/31/2021 08:51:55 01/01/20 22 12/31/2021 BASIC METAB OLIC PANEL estimated glom filtration rate 63 mL/mi n >60- Not Available [facility] (Lab Registration) [address] [place], [address], 12/31/2021 08:51:55 01/01/2012/31/2021 BASIC METAB OLIC PANEL calcium 9.5 mg/dL 8.5-10 .1 Not Available [facility] (Lab Registration) [address] [place], [address], 12/31/2021 08:51:55 01/01/2012/31/2021 BASIC METAB OLIC PANEL note Unles s other mills noted testi ng perfo rmed at: [facility] [place] [address] [phone] Juan zavala MD CLIA: [id number] Not Available [facility] (Lab Registration) [address] [place], [address], 12/31/2021 08:51:55 01/01/2012/31/2021 UA W MICRO AUTO color yellow yellow Not Available [facility] (Lab Registration) [address] [place], [address], 12/31/2021 08:55:12 01/01/2012/31/2021 UA W MICRO AUTO appearance cloudy clear Not Available [facility] (Lab Registration) [address] [place], [address], 12/31/2021 08:55:12 01/01/2012/31/2021 UA W MICRO AUTO glucose NORM normal Not Available [facility] (Lab Registration) [address] [place], [address], 12/31/2021 08:55:12 01/01/20 22 12/31/2021 UA W MICRO AUTO bilirubin NEGATI VE negati ve Not Available [facility] (Lab Registration) [address] [place], [address], 12/31/2021 08:55:12 01/01/20 22 12/31/2021 UA W MICRO AUTO ketone NEGATI VE mg/dL negati ve Not Available [facility] (Lab Registration) [address] [place], [address], 12/31/2021 08:55:12 01/01/2012/31/2021 UA W MICRO AUTO specific gravity 1.010 1.005- 1.035 Not Available [facility] (Lab Registration) [address] [place], [address], 12/31/2021 08:55:12 01/01/20 22 12/31/2021 UA W MICRO AUTO blood NEGATI VE /mcL negati ve Not Available [facility] (Lab Registration) [address] [place], [address], 12/31/2021 08:55:12 01/01/2012/31/2021 UA W MICRO AUTO pH 7.00 5.0-7. 5 Not Available [facility] (Lab Registration) [address] [place], [address], 12/31/2021 08:55:12 01/01/2012/31/2021 UA W MICRO AUTO protein NEGATI VE mg/dL negati ve Not Available [facility] ([facility] Registration) [address] [place], [address], 12/31/2021 08:55:12 01/01/20 22 12/31/2021 UA W MICRO AUTO urobilnogen NORM mg/dL normal Not Available [facility] (Lab Registration) [address] [place], [address], 12/31/2021 08:55:12 01/01/2012/31/2021 UA W MICRO AUTO nitrite POSITI VE negati ve delta Not Available [facility] (Lab Registration) [address] [place], [address], 12/31/2021 08:55:12 01/01/2012/31/2021 UA W MICRO AUTO leukocyte esterase 500 (2+) /mcL negati ve Not Available [facility] (Lab Registration) [address] [place], [address], 12/31/2021 08:55:12 01/01/2012/31/2021 UA W MICRO AUTO culture? YES Not Available [facility] (Lab Registration) [address] [place], [address], 12/31/2021 08:55:12 01/01/2012/31/2021 UA W MICRO AUTO RBC 0-3 0-3 Not Available [facility] ([facility] Registration) [address] [place], [address], 12/31/2021 08:55:12 01/01/2012/31/2021 UA W MICRO AUTO WBC 5-10 none seen Not Available [facility] ([facility] Registration) [address] [place], [address], 12/31/2021 08:55:12 01/01/2012/31/2021 UA W MICRO AUTO epithelial cell 1-5 none seen Not Available [facility] ([facility] Registration) [address] [place], [address], 12/31/2021 08:55:12 01/01/2012/31/2021 UA W MICRO AUTO bacteria 4+ none seen Not Available [facility] (Lab Registration) [address] [place], [address], 12/31/2021 08:55:12 01/01/20 22 12/31/2021 UA W MICRO AUTO note Unles s other mills noted testi ng perfo rmed at: [facility] [address] [place] [address] [phone] Juan zavala MD CLIA: [id number] Not Available [facility] ([facility] Registration) [address] [facility], [place], [address], 12/31/2021 08:55:12 01/01/20 22 12/31/2021 CULTU RE URINE culccur ===== ===== ===== ===== ===== ===== ===== ===== ===== ===== ===== ===== ===== ===== ===== ===== ===== ===== ===== ===== ===== ===== ===== ===== Speci men NO.: [id number] Exam Statu s: Final Proce dure: CULTU RE URINE ===== ===== ===== ===== ===== ===== ===== ===== ===== ===== ===== ===== ===== ===== ===== ===== ===== ===== ===== ===== ===== ===== ===== ===== Iso/R esult : 01 Esche maurice a coli Antim icrob ic/Do se KOFI Syste kofi Urine __ ___ ___ Ampic illin >16 R R Amp/S ulbac hernandez 16/8 I I Aztre onam <=4 S S Cefaz ricki <=2 S S Cefep raymond <=2 S S Cefot axime <=2 S S Cefox itin <=8 S S Cefta zidim e <=1 S S Ceftr iaxon e <=1 S S Cefur oxime <=4 S S Cipro floxa kathy <=1 S S Ertap enem <=0.5 S S Genta micin <=4 S S Levof loxac in <=2 S S Merop enem <=1 S S Nitro furan toin <=32 S S Pip/T azo <=16 S S Tetra cycli ne <=4 S S Tobra mycin <=4 S S Trime th/Hernandez lfa > R R [facility] 01-01 613 >100, 000 COL/M L Gram Negat alexus Rods Not Available [facility] (Lab Registration) [address] , [place], [address], 01/02/2022 07:07:26 01/01/20 22 12/31/2021 CULTU RE URINE note Unles s other mills noted testi ng perfo rmed at: [facility] [address] [place] [address] [phone] Juan zavala MD CLIA: [id number] Not Available [facility] (Lab Registration) [address] , [place], [address], 01/02/2022 07:07:26 04/11/19 23 04/12/2022 TSH TSH 3.39 mIU/L 0.40-4 .50 normal Not Available [facility] [address] [place], [address], 04/12/2022 07:40:39 04/11/19 23 04/12/2022 T4 (THYR OXINE ), TOTAL T4 (thyroxine), total 6.7 mcg/d L 5.1-11 .9 normal Not Available [facility] [address] [place], [address], 04/12/2022 07:40:40 04/15/19 23 04/18/2022 CULTU RE, URINE , ROUTI NE culture, urine, routine CULTU RE, URINE , ROUTI NE Micro Numbe r: [id number] Test Statu s: Final Speci men Sourc e: Urine Speci men Quali ty: Adequ ate Resul t: Mixed genit al debbi isola phuong. These super ficia l bacte joana are not indic ative of a urina ry tract infec tion. No furth er organ ism ident ifica tion is warra nted on this speci men. If clini sharad indic ated, recol lect clean -catc h, mid-s tream urine and trans maria ines immed iatel y to Urine Cultu re Trans port Tube. Not Available [facility] [address] [place], [address], 04/18/2022 06:24:37 04/15/19 23 04/15/2022 urina lysis , dipst ick Leukocytes Modera te Not Available [facility] [address] [place], [address], 04/15/2022 10:19:13 04/15/19 23 04/15/2022 urina lysis , dipst ick Nitrite negati ve Not Available [facility] [address] [place], [address], 04/15/2022 10:19:13 04/15/19 23 04/15/2022 urina lysis , dipst ick Urobilinogen .2 Not Available [facility] [address] [place], [address], 04/15/2022 10:19:13 04/15/19 23 04/15/2022 urina lysis , dipst ick Protein Negati ve Not Available [facility] [address] [place], [address], 04/15/2022 10:19:13 04/15/19 23 04/15/2022 urina lysis , dipst ick pH 6.[address] [facility] [address] [place], [address], 04/15/2022 10:19:13 04/15/19 23 04/15/2022 urina lysis , dipst ick Blood Negati ve Not Available [facility] [address] [place], [address], 04/15/2022 10:19:13 04/15/19 23 04/15/2022 urina lysis , dipst ick Specific [place] 1.025 Not Available [facility] [address] [place], [address], 04/15/2022 10:19:13 04/15/19 23 04/15/2022 urina lysis , dipst ick Ketone Negati ve Not Available [facility] [address] [place], [address], 04/15/2022 10:19:13 04/15/19 23 04/15/2022 urina lysis , dipst ick Bilirubin Negati ve Not Available [facility] [address] [place], [address], 04/15/2022 10:19:13 04/15/19 23 04/15/2022 urina lysis , dipst ick Glucose Negati ve Not Available [facility] [address] [place], [address], 04/15/2022 10:19:13 09/23/19 23 09/23/2022 LIPID PANEL , STAND BENITO cholesterol, total 142 mg/dL <200 normal Not Available [facility] [address] [facility], [place], [address], 09/23/2022 13:39:23 09/23/19 23 09/23/2022 LIPID PANEL , STAND BENITO HDL cholesterol 50 mg/dL > or = 50 normal Not Available [facility] [address] [facility], [place], [address], 09/23/2022 13:39:23 09/23/19 23 09/23/2022 LIPID PANEL , STAND BENITO triglyceride s 79 mg/dL <150 normal Not Available [facility] [address] [facility], [place], [address], 09/23/2022 13:39:23 09/23/19 23 09/23/2022 LIPID PANEL , STAND BENITO LDL-choleste rol 76 mg/dL _(steve c) normal Refer ence range : <100 Laverne able range <100 mg/dL for prima ry preve ntion ; <70 mg/dL for patie nts with CHD or diabe tic patie nts with > or = 2 CHD risk facto rs. LDL-C is now calcu lated using the Julianne n-Hop kins calcu gibson n, which is a valid ated novel metho d provi ding manda r accur acy than the Fried kendell equat ion in the estim ation of LDL-C . Julianne meade SS et al. KWAME. 2013; 310(1 9): 2061- 2068 (http ://ed ucati on.Qu Mera Webflakes. com/f aq/FA Q164) Not Available [facility] [address] [facility], [place], [address], 09/23/2022 13:39:23 09/23/19 23 09/23/2022 LIPID PANEL , STAND BENITO chol/HDLC ratio 2.8 (calc ) <5.0 normal Not Available [facility] [address] [facility], [place], [address], 09/23/2022 13:39:23 09/23/19 23 09/23/2022 LIPID PANEL , STAND BENITO non HDL cholesterol 92 mg/dL _(steve c) <130 normal For patie nts with diabe tucker plus 1 major ASCVD risk facto r, treat ing to a non-H DL-C goal of <100 mg/dL (LDL- C of <70 mg/dL ) is consi jasmyne jenseno n. Not Available [facility] [address] [place], [address], 09/23/2022 13:39:23 09/23/19 23 09/23/2022 COMPR EHENS ALEXUS METAB OLIC PANEL glucose 89 mg/dL 65-99 normal Fasti ng refer ence inter delmer Not Available [facility] [address] [place], [address], 09/23/2022 13:39:24 09/23/19 23 09/23/2022 COMPR EHENS ALEXUS METAB OLIC PANEL urea nitrogen (BUN) 14 mg/dL 7-25 normal Not Available [facility] [address] [place], [address], 09/23/2022 13:39:24 09/23/19 23 09/23/2022 COMPR EHENS ALEXUS METAB OLIC PANEL creatinine 0.96 mg/dL 0.60-0 .95 high Not Available [facility] [address] [place], [address], 09/23/2022 13:39:24 09/23/19 23 09/23/2022 COMPR EHENS ALEXUS METAB OLIC PANEL eGFR 58 mL/mi n/1.7 3m2 > or = 60 low The eGFR is based on the CKD-E PI 2020 equat ion. To calcu late the new eGFR from a previ ous Creat inine or Cysta rock C resul t, go to https ://alla [email or web address] zavala/ kdoqi /gfr% 5Fcal culat or Not Available [facility] [address] [place], [address], 09/23/2022 13:39:24 09/23/19 23 09/23/2022 COMPR EHENS ALEXUS METAB OLIC PANEL BUN/creatini ne ratio 15 (calc ) 6-22 normal Not Available [facility] [address] [place], [address], 09/23/2022 13:39:24 09/23/19 23 09/23/2022 COMPR EHENS ALEXUS METAB OLIC PANEL sodium 142 mmol/ L 135-14 6 normal Not Available [facility] [address] [place], [address], 09/23/2022 13:39:24 09/23/19 23 09/23/2022 COMPR EHENS ALEXUS METAB OLIC PANEL potassium 4.9 mmol/ L 3.5-5. 3 normal Not Available [facility] [address] [place], [address], 09/23/2022 13:39:24 09/23/19 23 09/23/2022 COMPR EHENS ALEXUS METAB OLIC PANEL chloride 108 mmol/ L 98-110 normal Not Available [facility] [address] [place], [address], 09/23/2022 13:39:24 09/23/19 23 09/23/2022 COMPR EHENS ALEXUS METAB OLIC PANEL carbon dioxide 28 mmol/ L 20-32 normal Not Available [facility] [address] [place], [address], 09/23/2022 13:39:24 09/23/19 23 09/23/2022 COMPR EHENS ALEXUS METAB OLIC PANEL calcium 9.6 mg/dL 8.6-10 .4 normal Not Available [facility] [address] [place], [address], 09/23/2022 13:39:24 09/23/19 23 09/23/2022 COMPR EHENS ALEXUS METAB OLIC PANEL protein, total 6.7 g/dL 6.1-8. 1 normal Not Available [facility] [address] [facility] [place], [address], 09/23/2022 13:39:24 09/23/19 23 09/23/2022 COMPR EHENS ALEXUS METAB OLIC PANEL albumin 4.2 g/dL 3.6-5. 1 normal Not Available [facility] [address] [place], [address], 09/23/2022 13:39:24 09/23/19 23 09/23/2022 COMPR EHENS AELXUS METAB OLIC PANEL globulin 2.5 g/dL_ (calc ) 1.9-3. 7 normal Not Available [facility] [address] [place], [address], 09/23/2022 13:39:24 09/23/19 23 09/23/2022 COMPR EHENS ALEXUS METAB OLIC PANEL albumin/glob ulin ratio 1.7 (calc ) 1.0-2. 5 normal Not Available [facility] [address] [place], [address], 09/23/2022 13:39:24 09/23/19 23 09/23/2022 COMPR EHENS ALEXUS METAB OLIC PANEL bilirubin, total 0.6 mg/dL 0.2-1. 2 normal Not Available [facility] [address] [place], [address], 09/23/2022 13:39:24 09/23/19 23 09/23/2022 COMPR EHENS ALEXUS METAB OLIC PANEL alkaline phosphatase 59 U/L 37-[address] [facility] [address] [place], [address], 09/23/2022 13:39:24 09/23/19 23 09/23/2022 COMPR EHENS ALEXUS METAB OLIC PANEL AST 19 U/L 10-35 normal Not Available [facility] [address] [facility] [place], [address], 09/23/2022 13:39:24 09/23/19 23 09/23/2022 COMPR EHENS ALEXUS METAB OLIC PANEL ALT 10 U/L 6-29 normal Not Available [facility] [address] [facility] [place], [address], 09/23/2022 13:39:24 09/23/19 23 09/23/2022 TSH TSH 3.64 mIU/L 0.40-4 .50 normal Not Available [facility] [address] [facility] [place], [address], 09/23/2022 13:39:24 09/23/19 23 09/23/2022 CBC (INCL UDES DIFF/ PLT) white blood cell count 4.0 thous and/u L 3.8-10 .8 normal Not Available [facility] [address] [facility] [place], [address], 09/23/2022 13:39:25 09/23/19 23 09/23/2022 CBC (INCL UDES DIFF/ PLT) red blood cell count 3.90 dayami on/uL 3.80-5 .10 normal Not Available [facility] [address] [facility] [place], [address], 09/23/2022 13:39:25 09/23/19 23 09/23/2022 CBC (INCL UDES DIFF/ PLT) hemoglobin 12.5 g/dL 11.7-1 5.5 normal Not Available [facility] [address] [facility] [place], [address], 09/23/2022 13:39:25 09/23/19 23 09/23/2022 CBC (INCL UDES DIFF/ PLT) hematocrit 38.2 % 35.0-4 5.0 normal Not Available [facility] [address] [facility] [place], [address], 09/23/2022 13:39:25 09/23/19 23 09/23/2022 CBC (INCL UDES DIFF/ PLT) MCV 97.9 fL 80.0-1 00.0 normal Not Available [facility] [address] [place], [address], 09/23/2022 13:39:25 09/23/19 23 09/23/2022 CBC (INCL UDES DIFF/ PLT) MCH 32.1 pg 27.0-3 3.0 normal Not Available [facility] [address] [facility] [place], [address], 09/23/2022 13:39:25 09/23/19 23 09/23/2022 CBC (INCL UDES DIFF/ PLT) MCHC 32.7 g/dL 32.0-3 6.0 normal Not Available [facility] [address] [facility] [place], [address], 09/23/2022 13:39:25 09/23/19 23 09/23/2022 CBC (INCL UDES DIFF/ PLT) RDW 11.9 % 11.0-1 5.0 normal Not Available [facility] [address] [facility] [place], [address], 09/23/2022 13:39:25 09/23/19 23 09/23/2022 CBC (INCL UDES DIFF/ PLT) platelet count 129 thous and/u L 140-40 0 low Not Available [facility] [address] [facility] [place], [address], 09/23/2022 13:39:25 09/23/19 23 09/23/2022 CBC (INCL UDES DIFF/ PLT) MPV 12.5 fL 7.5-12 .5 normal Not Available [facility] [address] [place], [address], 09/23/2022 13:39:25 09/23/19 23 09/23/2022 CBC (INCL UDES DIFF/ PLT) absolute neutrophils 1548 cells /uL 1500-7 800 normal Not Available [facility] [address], [place], [address], 09/23/2022 13:39:25 09/23/19 23 09/23/2022 CBC (INCL UDES DIFF/ PLT) absolute lymphocytes 1828 cells /uL 850-39 00 normal Not Available [facility] [address], [place], [address], 09/23/2022 13:39:25 09/23/19 23 09/23/2022 CBC (INCL UDES DIFF/ PLT) absolute monocytes 372 cells /uL 200-95 0 normal Not Available [facility] [address], [place], [address], 09/23/2022 13:39:25 09/23/19 23 09/23/2022 CBC (INCL UDES DIFF/ PLT) absolute eosinophils 200 cells /uL 15-500 normal Not Available [facility] [address], [place], [address], 09/23/2022 13:39:25 09/23/19 23 09/23/2022 CBC (INCL UDES DIFF/ PLT) absolute basophils 52 cells /uL 0-200 normal Not Available [facility] [address], [place], [address], 09/23/2022 13:39:25 09/23/19 23 09/23/2022 CBC (INCL UDES DIFF/ PLT) neutrophils 38.7 % normal Not Available [facility] [address], [place], [address], 09/23/2022 13:39:25 09/23/19 23 09/23/2022 CBC (INCL UDES DIFF/ PLT) lymphocytes 45.7 % normal Not Available [facility] [address] [place], [address], 09/23/2022 13:39:25 09/23/19 23 09/23/2022 CBC (INCL UDES DIFF/ PLT) monocytes 9.3 % normal Not Available [facility] [address] [place], [address], 09/23/2022 13:39:25 09/23/19 23 09/23/2022 CBC (INCL UDES DIFF/ PLT) eosinophils 5.0 % normal Not Available [facility] [address] [place], [address], 09/23/2022 13:39:25 09/23/19 23 09/23/2022 CBC (INCL UDES DIFF/ PLT) basophils 1.3 % normal Not Available [facility] [address] [place], [address], 09/23/2022 13:39:25 09/23/19 23 09/23/2022 HEPAT ITIS C AB W/REF L TO HCV RNA, QN, PCR hepatitis C antibody NON-RE ACTIVE non-re active normal HCV antib hannah was non-r eacti ve. There is no labor atory evide nce of HCV infec tion. In most cases , no furth er actio n is requi red. Howev er, if recen t HCV expos ure is suspe cted, a test for HCV RNA (test code 25029 ) is sugge sted. For addit ional infor tony n pleas e refer to http: //[facility] beauchampque stdia gnost ics.c om/fa q/FAQ 22v1 (This link is being provi ded for infor matollie nal/ educa gee l purpo ses only. ) Not Available [facility] [address] [place], [address], 09/23/2022 13:39:25 01/01/20 22 12/31/2021 CT, abdom en + pelvi s, w/o contr ast [facility] [address] [place] [address] Phone: Fax: Name: JENNIFER GANDARA Exam Date: 2021 : 1934 Age 86 Gender : F Access ion: [id number] Physic james: OOTHOU T, MEHRDAD Facili ty: [facility] Facili ty HSV: Outpat ient Exam: CT ABD/PE L NO ORAL OR IV CONTR CT ABDOME N AND PELVIS withou t contra st HISTOR Y: Right flank pain COMPAR RYAN: None . TECHNI QUE: Noncon trast exam. Lack of IV contra st limits assess ment of the solid organs , the medias tinum, and the vascul ature. CT ABDOME N: Athero sclero sis withou t aortic aneury sm. There is eviden ce of calcif ied granul omatou s diseas e. The heart is mildly enlarg ed with a small perica rdial effusi on. Gallbl adder is presen t. The noncon traste d liver, spleen , pancre as and adrena l glands are unrema rkable . There is no hydron ephros is. No discre te ureter al stones were identi fied. There are no abnorm ally dilate d loops of bowel. Modera te retain ed stool, correl ate for consti pation . CT PELVIS : The append ix is normal . Bladde r is unrema rkable . The uterus is presen t. There are calcif icatio ns which may be second mitul to fibroi d change s. No acute osseou s change s. No signif icant fluid collec tions in the pelvis . IMPRES CATIA: Modera te retain ed stool, correl ate for consti pation . The heart is mildly enlarg ed with a small perica rdial effusi on. This study was perfor med using automa phuong techni ques to achiev e radiat ion exposu re as low as reason ably achiev able Dictat ed By: ANDREW LAUGHLIN Transc ribed By: ANDREW LAUGHLIN Transc ribed On: 2021 8:56 AM Electr onical ly signed by: ANDREW LAUGHLIN 2021 Thank you for referr JENNIFER Hodges to [facility]. Legall y authen ticate d by POPE ANDREW Nieves DO 2021-03 08:56: 26 CC'ed Logic: Orderi ng Provid er: TIMBO CRONIN CC Provid er: CHELA Balderrama Attend ing Provid er: TIMBO CRONIN Referr ing Provid er: TIMBO CRONIN Admitt ing Provid er: TIMBO darling [facility] (Radiology) [address] [place] [address] , [place], [address], 01/05/2022 00:36:32 07/22/19 23 07/20/2022 cardi ac stres s test No observ ation record ed. 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 JENNIFER GANDARA [facility] 8 2 EXAM: NM MYOCAR D SPEC WM/EF INFORMATION SYSTEMS SECURITY ANALYST [id number] DATE OF EXAM: 2022 08:57: 00 PROVID ER: Александр Villalobos MD TECHNI QUE: The patien t was studie d with a 1-day protoc ol using Albert treadm ill protoc ol and sestam ibi. Heart rate varied from 67 to 126. FINDIN GS: Baseli ne EKG showed normal sinus rhythm . No ST-T wave abnorm alitie s develo ped during walkin g. Maximu m heart rate was 126, which surpas sed target heart rate of 113 beats per minute . Total exerci se durati on was 7 minute s and 2 second s achiev ing 7.50 METS. Raw imagin g showed no unusua l uptake . Nuclea r ejecti on fracti on calcul ated at greate r than 70% at rest and stress . Perfus ion imagin g showed homoge neous radiot racer uptake with no scinti graphi c eviden ce of ischem ia. Summed differ ence score is 0. Transi ent ischem ic dilata tion ratio is normal at 0.77. CONCLU SIONS: Normal nuclea r ejecti on fracti on. Normal treadm ill stress test. No scinti graphi c eviden ce of ischem ia. DICTAT ED BY: Александр Villalobos MD CW/MOD L DD: 2022 16:44: 56 DT: 2022 19:37: 35 /[id number] Electr onical ly Signed By: HELLEN RENTERIA MD 2022-0 07-21 08:19: 37 CC'ed Logic: Orderi ng Provid er: CHELA Balderrama CC Provid er: CHELA Balderrama Attend ing Provid er: SCHNEI SANJAY DENISE Referr ing Provid er: SCHNEI SANJAY DENISE Admitt ing Provid er: SCHNEI SANJAY DENISE [facility] (Radiology) [address] [place], [address], 09/23/2022 14:07:57 07/28/19 23 07/27/2022 MAMMO , scree cali, digit al, bilat eral [facility] [address] [facility] [place] [address] Phone: Fax: Name: JENNIFER GANDARA Exam Date: 023 : 1934 Age 87 Gender : F Access ion: [id number] Physic james: ANDREW CARPENTER Facili ty: [facility] Facili ty HSV: Outpat ient Exam: SCREEN MAMMO W CAD BILAT Bilate ral digita l screen ing mammog cong with CAD and with breast tomosy nthesi s Findin gs: Compar ryan dates are 2 and 1. Tissue is hetero geneou sly dense. There are no new or suspic ious densit ies. There are a few benign -appea ring calcif icatio ns. There are no areas of focal mammog raphic concer n and there have been no signif icant interv al change s. Impres catia: BI-RAD S 1, negati ve Yearly follow -up mammog jan is recomm ended. This patien t will be sent a letter from the mammog jan depart ment with their mammog jan result s. Dictat ed By: BEATRIZ GOOD Transc ribed By: tulio de la o Transc ribed On: 023 10:19 AM Electr onical ly signed by: BEATRIZ GOOD 023 Thank you for referr JENNIFER Hodges to [facility]. Legall y authen ticate d by JOSEPHINE Can MD 07-27 11:56: 24 CC'ed Logic: Orderi ng Provid er: CHELA Balderrama CC Provid er: CHELA Balderrama Attend ing Provid er: CHELA Balderrama Referr ing Provid er: CHELA Balderrama Admitt ing Provid er: CHELA [address] [place] [address] (Radiology) [address] [place] [address], [place], [address], 09/23/2022 14:07:57 Result Notes None recorded. Problems Name Problem SNOMED Code Status Onset Date Resolution Date Notes Provider Name and Address Organization Details Recorded Time Knee pain Active Violetta Gramajo MD 2017 [facility], [facility], [place], [address], [facility] 6 15:49:41 Peripheral neuropathi c pain 094683597 Active Violetta Gramajo MD 2017 [facility], [place], [address], [facility] 6 15:49:41 Degenerati on of cervical interverte bral disc 24162604 Active Violetta Gramajo MD [address] [place] [address], [place] - [facility] 6 15:49:41 Muscle pain 22056443 Active Violetta Gramajo MD [address] [place] [address], [place] - [facility] 6 15:49:41 Disorder of urinary tract 61353156 Active Violetta Gramajo MD [address] [place] [address], [place] - [facility] 6 15:49:41 Fatigue 69938685 Active Violetta Gramajo MD [address] [place] [address], [place] - [facility] 6 15:49:41 Urinary tract infectious disease 09329579 Active Violetta Gramajo MD [address] [place] [address], [place] - [facility] 6 15:49:41 Bacterial vaginosis 135693172 Active Violetta Gramajo MD [address] [place] [address], [place] - [facility] 6 15:49:41 Candidiasi s of vagina 45229796 Active Violetta Gramajo MD [address] [address], [place] - [facility] 6 15:49:41 Acute bronchopne umonia 651806829 Active Violetta Gramajo MD [address] [address], [place] - [facility] 6 15:49:41 Stomatitis 19086114 Active Violetta Gramajo MD [address] [address], [facility] 6 16:09:39 Breast lump 46350463 [facility] 6 10:23:59 Headache 67483984 Active Violetta Gramajo MD [address] [address], [facility] 6 15:49:41 Acute sinusitis 31051076 Active Violetta Gramajo MD [address] [address], [facility] 6 15:49:41 Superficia l injury of elbow and/or forearm and/or wrist Active Violetta Gramajo MD [address] [address], [facility] 6 15:49:41 Gastroesop hageal reflux disease 708056300 Active Violetta Gramajo MD [address] [address], [facility] 6 16:09:39 Plantar fascial fibromatos is 20787115 Active 2010 improving Violetta Gramajo MD [address] [address], [facility] 6 15:49:41 Wheezing 20164265 Active Violetta Gramajo MD [address] [address], [facility] 6 15:49:41 Chest pain 71438036 Марина Gramajo MD [address] [address], [facility] 6 15:49:41 Symptom of head and neck region 232378874 Active Violetta Gramajo MD [address] [place] [address], [place], [place], [address] [place] [address], ANTHONY - [facility] 6 15:49:41 Benign essential hypertensi on 6362437 Active controlled Violetta Gramajo MD [address], [address] [place] [address], ANTHONY - [facility] 6 15:49:41 Hyperlipid emia 60257504 Active controlled Violetta Gramajo MD [address], [address] [place] [address], [facility]ONY - [facility] 6 15:49:41 Backache 903528575 Active Violetta Gramajo MD [address], [address] [place] [address], [facility] 6 15:49:41 Neck pain 83508596 Active Violetta Gramajo MD [address], [address] [place] [address], [facility]ONY - [facility] 6 15:49:41 Allergic rhinitis 60951284 Марина Graamjo MD [address], [address] [place] [address], [facility] 6 15:49:41 Contact dermatitis due to solar radiation Active Violetta Gramajo MD [address], [address] [place] [address], [facility] 6 15:49:41 Acute bronchitis 40999337 Марина Gramajo MD [address], [address] [place] [address], [facility] 6 15:49:41 Malaise and fatigue 098544006 Марина Gramajo MD [address] [address], [place], [address], [facility] 6 15:49:41 Insomnia 958679518 Active Violetta Gramajo MD 2017 [facility], [place], [address], [facility] 6 15:49:41 Noninfecti ous gastroente ritis 03984658 Active Violetta Gramajo MD 2017 [facility], [place], [address], ANTHONY - [facility] 6 15:49:41 Problem Notes None recorded. Procedures Surgical History Date Name Laterality Status Provider Name and Address Organization Details Recorded Time 10/10/19 12 Nebulizer tx completed Violetta Gramajo MD [address] [address], [place], [address], [facility] 10/10/2011 14:36:20 03/06/19 07 Colonoscopy completed Not Available [facility] 01/19/20 11 04:58:32 03/06/19 04 Colonoscopy completed Not Available [facility] 01/19/20 11 04:58:32 03/06/18 98 Carpal tunnel surgery completed Not Available [facility] 01/18/2011 04:58:32 03/06/18 60 Breast Biopsy completed Not Available [facility] 2010 04:58:32 Imaging Results Imaging Date Name Status LastModified by Organiz ation Details LastModified Time 12/31/2021 CT, abdomen + pelvis, w/o contrast completed [address] (Radiology) [address], [place], [address], 01/05/2022 00:36:32 07/20/2022 cardiac stress test [place] [address] Sabine Villalobos MD [address], [place], [address], 09/23/2022 14:07:57 07/20/2022 nm myocard 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 Medical Equipment None Reported. Allergies No known drug allergies Medications Name Sig Start Date Stop Date Status Note LastModified by Organization Details LastModified Time cyclobenz aprine 10 mg tablet 0.5 po bid prn for muscle spasm active Not Available Not Available No t Available amoxicill in 500 mg capsule TAKE 1 CAPSULE BY MOUTH THREE TIMES A DAY FOR 10 DAYS 01/16 completed Not Available Not Available Not Available Augmentin 875 mg-125 mg tablet Take 1 tablet every 12 hours by oral route for 10 days. 06/22 completed Not Available Not Available Not Available nystatin 100,000 unit/mL oral suspensio n 02/03 completed Not Available Not Available Not Available cefuroxim e axetil 250 mg tablet active Not Available Not Available Not Available tizanidin e 2 mg tablet TAKE 1 TABLET BY MOUTH EVERY 8 HOURS NEEDED 03/07 completed Not Available Not Available Not Available loperamid e 2 mg capsule active Not Available Not Available Not Available trazodone 50 mg tablet TAKE 1 TO 2 TABLETS BY MOUTH EVERY EVENING NEEDED FOR SLEEP active Not Available Not Available No t Available ibuprofen 800 mg tablet active Not Available Not Available Not Available Lidocaine Viscous 2 % mucosal solution 10 ml to swish and expector ate qid AC and HS 02/03 completed Not Available Not Available Not Available fluconazo le 150 mg tablet TAKE 1 TABLET BY MOUTH DAILY active Not Available Not Available No t Available benzonata te 200 mg capsule TAKE ONE CAPSULE BY MOUTH 3 TIMES A DAY NEEDED 06/13 completed Not Available Not Available Not Available valacyclo vir 1 gram tablet TAKE 1 TABLET BY MOUTH EVERY 12 HOURS FOR 7 DAYS 09/13 completed Not Available Not Available Not Available metronida zole 0.75 % (37.5 mg/5 gram) vaginal gel INSERT 1 APPLICAT ORFUL EVERY DAY BY VAGINAL ROUTE FOR 7 DAYS active Not Available Not Available No t Available prednison e 20 mg tablet 01/16 completed Not Available Not Available Not Available Niaspan 500 mg tablet,ex tended release active Not Available Not Available Not Available metronida zole 250 mg tablet active Not Available Not Available No t Available metronida zole 500 mg tablet TAKE 1 TABLET BY MOUTH EVERY 8 HOURS FOR 7 DAYS active Not Available Not Available No t Available Sleep 25 mg tablet Take 3 tablets every day by oral route at bedtime. active Not Available Not Available No t Available ciproflox acin 500 mg tablet TAKE 1 TABLET BY MOUTH TWICE DAILY 04/15 completed Not Available Not Available Not Available sulfameth oxazole 800 mg-trimet hoprim 160 mg tablet TAKE 1 TABLET BY MOUTH TWICE DAILY 04/15 completed Not Available Not Available Not Available aspirin 81 mg tablet,de layed release Take 1 tablet every day by oral route. active Not Available Not Available No t Available doxycycli ne monohydra te 100 mg tablet TAKE 1 TABLET BY MOUTH TWICE DAILY 06/11 completed Not Available Not Available Not Available tramadol 50 mg tablet TAKE 1 TABLET BY MOUTH TWICE DAILY NEEDED 09/23 completed Not Available Not Available Not Available triamcino lone acetonide 0.1 % topical cream APPLY TO HANDS FOR ECZEMA TWICE DAILY 06/29 completed Not Available Not Available Not Available butalbita l-acetami nophen-ca ffeine 50 mg-325 mg-40 mg tablet TAKE 1 TABLET BY MOUTH TWICE DAILY NEEDED FOR HEADACHE 2022 active Not Available Not Available Not Avai lable ondansetr on 8 mg disintegr ating tablet active Not Available Not Available Not Available dexametha sone sodium phosphate 0.1 % eye drops INSTILL 1 DROP INTO THE RIGHT EYE TWICE A DAY 03/26 completed Not Available Not Available Not Available meloxicam 7.5 mg tablet 08/18 completed Not Available Not Available Not Available ceftriaxo ne 1 gram solution for injection 2014 active Rocephin Not Available Not Available Not Avai lable propranol ol 40 mg tablet TAKE 1 TABLET BY MOUTH EVERY DAY 09/06 completed Not Available Not Available Not Available triamcino lone acetonide 0.1 % dental paste APPLY TO AFFECTED AREA ON TONGUE TWICE DAILY NEEDED 06/29 completed Not Available Not Available Not Available gabapenti n 800 mg tablet TAKE 1 TABLET BY MOUTH 3 TIMES A DAY 01/21 completed Not Available Not Available Not Available cephalexi n 500 mg capsule active Not Available Not Available Not Available simvastat in 20 mg tablet TAKE 1 TABLET BY MOUTH EVERY DAY IN THE EVENING 2023 active Not Available Not Available Not Avai lable methimazo le 5 mg tablet TAKE 1 TABLET BY MOUTH TWICE DAILY 2022 active Not Available Not Available Not Avai lable docusate sodium 100 mg capsule TAKE 1 CAPSULE BY MOUTH EVERY DAY active Not Available Not Available No t Available gabapenti n 300 mg capsule TAKE 2 CAPSULES BY MOUTH EVERY DAY AT BEDTIME active Not Available Not Available No t Available omeprazol e 20 mg capsule,d elayed release TAKE 1 CAPSULE BY MOUTH EVERY MORNING active Not Available Not Available No t Available hydrocodo ne 5 mg-acetam inophen 500 mg tablet active Not Available Not Available Not Available Proventil HFA 90 mcg/actua tion aerosol inhaler Inhale 2 puffs every 4 hours by inhalati on route as needed. 2011 active Not Available Not Available Not Avai lable ampicilli n 250 mg capsule Take 1 capsule every 6 hours by oral route. 01/24 completed Not Available Not Available Not Available zolpidem 5 mg tablet TAKE 1 TABLET BY MOUTH AT BEDTIME NEEDED FOR SLEEP active Not Available Not Available No t Available metoprolo l succinate ER 25 mg tablet,ex tended release 24 hr TAKE 1 TABLET BY MOUTH EVERY DAY active Not Available Not Available No t Available dexametha sone sodium phosphate 4 mg/mL injection solution Inject 1 mL by intramus cular route. 04/15 completed Not Available Not Available Not Available ibuprofen 600 mg tablet 06/13 completed Not Available Not Available Not Available levofloxa kathy 500 mg tablet Take 1 tablet every 24 hours by oral route. active Not Available Not Available No t Available gentamici n 40 mg/mL injection solution 2014 active Not Available Not Available Not Avai lable methylpre dnisolone 4 mg tablets in a dose pack FOLLOW PACKAGE DIRECTIO NS 04/15 completed Not Available Not Available Not Available methimazo le 10 mg tablet TAKE 1 TABLET BY MOUTH TWICE DAILY 09/13 completed Not Available Not Available Not Available fluticaso ne propionat e 50 mcg/actua tion nasal spray,slade pension as needed daily 09/13 completed Not Available Not Available Not Available loratadin e 10 mg tablet TAKE 1 TABLET BY MOUTH EVERY DAY NEEDED 05/11 completed Not Available Not Available Not Available naproxen 500 mg tablet active Not Available Not Available Not Available Allergy Relief D-24hr 10 mg-240 mg tablet,ex tended release TAKE 1 TABLET BY MOUTH EVERY DAY 06/29 completed Not Available Not Available Not Available nitrofura ntoin monohydra te/macroc rystals 100 mg capsule TAKE 1 CAPSULE BY MOUTH EVERY 12 HOURS WITH MEALS FOR 7 DAYS active Not Available Not Available No t Available chlorhexi dine gluconate 0.12 % mouthwash USE 15ML TWICE A DAY BY MUCOUS MEMBRANE ROUTE NEEDED. 06/20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 [facility], [address] [address], [place], [address], [facility] 11/29/2022 23:21:58 OBGyn Episode Ob Episode Information Episode Created Date Number of Fetuses Patient Bloodtype Patient rh Status Prepregnancy Weight lbs Domestic Partner Domestic Partner Phone Father Name Road Crossing Guard Status 11/10/19 11 1 CLOSED Fetus Data First Name Last Name Admitted to NICU Weight (g) Sex Living Outcome Pediatric Complications Fetus ID Race Codes Race Delivery Type F 21 Isidoro Calculation Initial Isidoro Date Initial Exam Date Initial Exam Provider Initial Ultrasound Date Last Menstrual Period Date Ultra Sound Weeks Gestation 0 Eighteen To Twenty Week Isidoro Update Ultra Sound Date Fundal Height At Umbil Quickening Date Ultra Sound Latest Weeks Gestation Final Isidoro Confirmed By Final Isidoro Confirmed Date Final Isidoro Date Ultra Sound Latest Days Gestation 0 0 Menstrual History Last Menstrual Date Menses Monthly On Bcp Conception Prior Menses Frequency Hcg Plus Date Menarche Onset Age Delivery Information Delivery Date Delivery Type Labor Anesthesia Weeks Gestation Incision Type Labor Labor Length Hrs Delivered By Post Complications Tubal Sterilization Discharge Date Comments 8 Discharge Information Feeding Method Contraceptive Method Maternal HG B and HCT Levels Ob Episode Information Episode Created Date Number of Fetuses Patient Bloodtype Patient rh Status Prepregnancy Weight lbs Domestic Partner Domestic Partner Phone Father Name Road Crossing Guard Status 11/10/19 11 1 CLOSED Fetus Data First Name Last Name Admitted to NICU Weight (g) Sex Living Outcome Pediatric Complications Fetus ID Race Codes Race Delivery Type M 22 Isidoro Calculation Initial Isidoro Date Initial Exam Date Initial Exam Provider Initial Ultrasound Date Last Menstrual Period Date Ultra Sound Weeks Gestation 0 Eighteen To Twenty Week Isidoro Update Ultra Sound Date Fundal Height At Umbil Quickening Date Ultra Sound Latest Weeks Gestation Final Isidoro Confirmed By Final Isidoro Confirmed Date Final Isidoro Date Ultra Sound Latest Days Gestation 0 0 Menstrual History Last Menstrual Date Menses Monthly On Bcp Conception Prior Menses Frequency Hcg Plus Date Menarche Onset Age Delivery Information Delivery Date Delivery Type Labor Anesthesia Weeks Gestation Incision Type Labor Labor Length Hrs Delivered By Post Complications Tubal Sterilization Discharge Date Comments 6 Discharge Information Feeding Method Contraceptive Method Maternal HG B and HCT Levels Ob Episode Information Episode Created Date Number of Fetuses Patient Bloodtype Patient rh Status Prepregnancy Weight lbs Domestic Partner Domestic Partner Phone Father Name Road Crossing Guard Status 11/10/19 11 1 CLOSED Fetus Data First Name Last Name Admitted to NICU Weight (g) Sex Living Outcome Pediatric Complications Fetus ID Race Codes Race Delivery Type M 23 Isidoro Calculation Initial Isidoro Date Initial Exam Date Initial Exam Provider Initial Ultrasound Date Last Menstrual Period Date Ultra Sound Weeks Gestation 0 Eighteen To Twenty Week Isidoro Update Ultra Sound Date Fundal Height At Umbil Quickening Date Ultra Sound Latest Weeks Gestation Final Isidoro Confirmed By Final Isidoro Confirmed Date Final Isidoro Date Ultra Sound Latest Days Gestation 0 0 Menstrual History Last Menstrual Date Menses Monthly On Bcp Conception Prior Menses Frequency Hcg Plus Date Menarche Onset Age Delivery Information Delivery Date Delivery Type Labor Anesthesia Weeks Gestation Incision Type Labor Labor Length Hrs Delivered By Post Complications Tubal Sterilization Discharge Date Comments 2 Discharge Information Feeding Method Contraceptive Method Maternal HG B and HCT Levels
[2024-07-10 10:50] LABS: Microscopic, Urine URINE MICROSCOPIC (MICROSCOPIC)
--- NOTE | 2024-07-10 11:09 | ED_ITS ---
<Statement entered by Lois Flores DO - 07/10/24 14:17> I was consulted by the [facility], and we discussed the complexity of the problems being addressed. I approved the treatment and management plan for this patient's care in the emergency department, thus performing a substantive portion of the medical decision making. Urinalysis not concerning for infection. Exam reassuring with no alarm findings such as fevers, numbness, tingling, or other concerns. Overall, is felt the pain is likely musculoskeletal. 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 Patient is agreeable to discharge home with trial of muscle relaxers and supportive management with very strict return precautions and instructions for close follow-up with primary care provider for recheck. Lois Flores DO Discharge Plan Disposition Patient Disposition: Home, Self-Care Condition: Good Prescriptions Prescriptions: New methocarbamol 500 mg tablet 500 mg PO HS 5 Days Qty: 5 0RF No Action omeprazole 20 mg capsule,delayed release(DR/EC) 20 mg PO DAILY Qty: 90 3RF Qulipta 10 mg tablet See Rx Instructions .ROUTE .COMPLEX Qty: 30 5RF Dose Instruction: TAKE ONE TABLET BY MOUTH ONCE A DAY Rx Instructions: TAKE ONE TABLET BY MOUTH ONCE A DAY Linzess 72 mcg capsule 72 mcg PO DAILY Qty: 30 2RF metoprolol succinate 25 mg tablet extended release 24 hr See Rx Instructions .ROUTE .COMPLEX Qty: 30 5RF Dose Instruction: TAKE ONE TABLET BY MOUTH ONCE A DAY Rx Instructions: TAKE ONE TABLET BY MOUTH ONCE A DAY oxycodone-acetaminophen 5-325 mg tablet 1 tab PO TID PRN (Reason: pain) 30 Days Qty: 90 0RF aspirin [Aspir-Low] 81 MG tablet,delayed release (DR/EC) 81 mg PO DAILY Referrals Follow up/Referrals: Jamal Walter MD [Primary Care Provider] - See instructions Activity Restrictions/Add. Instructions Additional Instructions/Restrictions: Follow-up with PCP Rotate heat and ice, heat for 20 minutes make sure skin has come back to room temperature apply ice for 20 minutes this can be done every hour for comfort If symptoms worsen or does not improve return Clinical Impressions Clinical Impression: Strain of lumbar region Qualifiers: Encounter type: initial encounter Qualified Code(s): S39.012A - Strain of muscle, fascia and tendon of lower back, initial encounter Instructions Patient Instructions: DI for Low Back Pain Print Language Print Language: Hungarian Discharge ED Provider: Lois Flores General Adult HPI General Chief complaint: Back Pain/Injury Stated complaint: lower back pain x 4 days-no accident Time Seen by Provider: 07/10/24 10:30 Mode of Arrival: Ambulatory Source of Information: Patient Description of Symptoms (Recalled from ER Triage Doc. by RN): pt states she has low back pain since monday with no fall, trauma, no issues with urination or bowel movements. pt states it goes all the way across and laying down makes it worse, pt states shes more comfy in the chair History of Present Illness HPI narrative: 89-year-old female presents for complaints of low back pain since Monday. Patient states laying causes pain to worsen. Patient states no fall trauma. Patient reports no bowel or bladder issues or saddle paresthesia. Patient states the pain goes across lower back and does not radiate Related Data Home Medications ?Medication ?Instructions ?Recorded ?Confirmed aspirin 81 mg tablet,delayed 81 mg PO DAILY Heart disease 01/24/18 04/18/24 release (Aspir-Low) Previous Rx's ?Medication ?Instructions ?Recorded omeprazole 20 mg capsule,delayed 20 mg PO DAILY #90 caps 12/27/23 release atogepant 10 mg tablet (Qulipta) See Rx Instructions .Route 06/06/24 .COMPLEX #30 tabs linaclotide 72 mcg capsule 72 mcg PO DAILY #30 caps 06/06/24 (Linzess) metoprolol succinate 25 mg See Rx Instructions .Route 06/06/24 tablet,extended release 24 hr .COMPLEX #30 tabs oxycodone-acetaminophen 5 mg-325 1 tab PO TID PRN pain 30 days #90 07/04/24 mg tablet tabs methocarbamol 500 mg tablet 500 mg PO HS 5 days #5 tabs 07/10/24 Allergies Allergy/AdvReac Type Severity Reaction Status Date / Time No Known Allergies Allergy Verified 04/18/24 09:37 [facility] Disclaimer: The information contained in this section may have been updated after the patient was seen, as this information can be updated by other users. Medical History , DISABILITY EXAMINER) Migraine HTN (hypertension) Hypothyroid GERD (gastroesophageal reflux disease) Family History , DISABILITY EXAMINER) No significant family history Social History , DISABILITY EXAMINER) Smoking Status: Never smoker alcohol intake: never substance use type: denies use current occupational status: other Travel in the last 8 weeks?: None caffeine: No Have you lived/traveled outside US in past 30 days?: No Contact w/someone who lives/traveled outside US past 30 days?: No Exposure to someone with infectious disease in past 14 days?: No Do you have a fever (greater than 100.4 F or 38 C)?: No Have you tested positive for COVID-19?: No Exposed to someone with COVID-19 in past 14 days?: No Do you have a sore throat?: No Do you have a cough?: No Do you have any weakness?: No Do you have any diarrhea?: No Are you experiencing any unusual bleeding?: No Do you have any muscle aches/pain?: Yes Do you have any abdominal pain?: No Are you experiencing loss of taste or smell?: No Other Medical History Have you received the Flu Vaccine for this season: No Have you received the Pneumonia Vaccine: Yes ROS Obtained: Yes Systems reviewed as appropriate & no additional complaints except as documented Physical Exam General General appearance: alert and in no apparent distress Respiratory Respiratory exam: Present normal lung sounds bilaterally Cardiovascular Cardiovascular exam: Present regular rate and normal rhythm Abdominal Exam Abdominal exam: Present soft and normal bowel sounds; Absent distention or te nderness Extremities Exam Extremities exam: Present normal inspection and full ROM Back Exam Back exam: Present normal inspection, full ROM, tenderness and muscle spasm; Absent CVA tenderness (R) Neurological Exam Neurological exam: Present alert and oriented X3 Skin Skin exam: Present warm and intact Medical Decision Making Medical Records Medical records reviewed: Yes I reviewed the patient's medical records. Screening: Per USPSTF and CDC recommendations, given the prevalence of disease in our region, it is our hospital?s policy to screen for HIV and viral Hepatitis for all patients aged 18 and over and those with ongoing risk factors. Lei Inquiry Pt receiving controlled substance: No Lei was queried for this patient: No Vital Signs: 07/10/24 10:34 07/10/24 10:36 Temperature 98.2 F Temperature Source Oral Pulse Rate 50 L Pulse Rate [Left Radial] 52 L Respiratory Rate 20 Blood Pressure 153/89 H Blood Pressure [Right Arm] 153/86 H Blood Pressure Mean [Right Arm] 108 02 Sat by Pulse Oximetry 98 95 Oxygen Delivery Method Room Air Room Air Lab Data Lab results reviewed: Yes I reviewed the patient's lab results. Lab Results 07/10/24 10:45: Urine Color Yellow, Urine Appearance Clear, Urine pH 6.0, Ur Specific [place] 1.010, Urine Protein Negative, Urine Glucose (UA) Negative, Urine Ketones Negative, Urine Blood Negative, Urine Nitrate Negative, Urine Bilirubin Negative, Urine Urobilinogen 0.2, Ur Leukocyte Esterase Trace, Urine RBC None, Urine WBC 3-5, Ur Squamous Epith Cells 5-10, Urine Bacteria Trace, Hyaline Casts Occ Orders (Tests/Meds): ED MEDICATIONS Discontinued Medications Generic Name Dose Route Start Last Admin Trade Name Sedrickq PRN Reason Stop Dose Admin Acetaminophen 1,000 mg 07/10/24 11:41 07/10/24 11:58 Acetaminophen 500mg Tab PO 07/10/24 11:42 1,000 mg ONCE ONE Administration Ketorolac Tromethamine 30 mg 07/10/24 11:41 07/10/24 11:59 Ketorolac 30mg/Ml Vial IM 07/10/24 11:42 30 mg ONCE ONE Administration Lidocaine 1 each 07/10/24 11:41 07/10/24 11:58 Lidocaine 5% Transdermal Patch TD 07/10/24 11:42 1 each ONCE ONE Administration Methocarbamol 1,000 mg 07/10/24 11:41 07/10/24 11:58 Methocarbamol 500mg Tablet PO 07/10/24 11:42 1,000 mg ONCE ONE Administration ORDERS Category Date Time Status Urinalysis and Microscopic Stat Lab 07/10/24 10:45 Completed Urine Culture Stat Micro 07/10/24 10:45 Received Medical Decision Narrative: In summary patient is a 89-year-old female who presents to the emergency department for evaluation of low back pain. Patient is hemodynamically stable upon arrival, afebrile. Unremarkable physical exam. Differential diagnosis includes low back pain. Initial workup will be conducted with urinalysis. Initial inventions include medications. Initial workup reviewed by me noelle gardiner unremarkable, will send for culture. Upon repeat evaluation patient states she still has pain and would like to go home where she feels more comfortable. Given this patient is appropriate for discharge at this time instructed if symptoms increase or do not improve to return Did not do further workup related to this being a muscle related. Critical Care Critical Care Time Critical Care Time: No
[2024-07-10 11:22] LABS: Appearance,Urine CLEAR (Clear); Bilirubin,Urine Negative (Negative); Blood, Urine Negative (Negative); Color,Urine YELLOW (Yellow); Glucose,Urine (UA) Negative (Negative); Ketones,Urine Negative (Negative); Leukocyte Esterase,Urine TRACE (Negative); Nitrate,Urine Negative (Negative); Protein,Urine Negative (Negative); Urobilinogen,Urine 0.2 EU/dl (0.2)
[2024-07-10 11:35] LABS: Bacteria,Urine Trace /lpf; Hyaline Casts,Urine OCC #/lpf (0)
[2024-07-10] MEDS: ACETAMINOPHEN 500MG TAB 1000 MG PO (11:58)
[2024-07-10] MEDS: METHOCARBAMOL 500MG TABLET 1000 MG PO (11:58)
[2024-07-10] MEDS: LIDOCAINE 5% TRANSDERMAL PATCH 1 EACH TD (11:58)
[2024-07-10] MEDS: KETOROLAC 30MG/ML VIAL 30 MG IM (11:59)
[2024-07-10 12:23] VITALS: BP 153/89; PULSE 51; RESP 19; TEMP 37.1; O2SAT 97
== END 2024-07-10 12:24 | disposition home or self-care (01) ==
PROVIDERS: Nurse Practitioner Family; Emergency Provider Emergency Medicine; PCP Family Medicine
DX: S39.012A Strain of muscle, fascia and tendon of lower back, initial encounter (principal); X58.XXXA Exposure to other specified factors, initial encounter
CPT/HCPCS: 81001; 87086; 96372; 99283; J1885

== ENCOUNTER 2024-11-29 21:36 | Outpatient (CLI) | payer MEDICARE, SELFPAY ==
--- OUTSIDE RECORDS SUMMARY | 2024-11-29 21:38 | XMS_ITS | Clinical Summary ---
Author Organization [facility] Address [address] [place] [address] Care Team Providers Care Pivot End Polisher Name Role Phone Violetta Gramajo MD Primary Care Provider + Allergies No known active allergies Medications gabapentin (NEURONTIN) 300 MG capsule Take 1 capsule by mouth Daily. 3 Active butalbital-acetam inophen-caffeine (FIORICET, ESGIC) 50-325-40 MG per tablet Take 1 tablet by mouth As Needed. 3 Active methIMAzole (TAPAZOLE) 5 MG tablet Take 1 tablet by mouth Daily. Active simvastatin (ZOCOR) 20 MG tablet Take 1 tablet by mouth Every Evening. 3 Active aspirin 81 MG EC tablet Take 1 tablet by mouth Daily. Active metoprolol succinate XL (TOPROL-XL) 25 MG 24 hr tabletIndications :Chest pain, atypical,Benign essential hypertension Take 1 tablet by mouth Daily. 90 tablet 1 3 Active Active Problems Problem Noted Date Diagnosed Date Chest pain, atypical 07/10/2022 Assessment & Plan (07/10/2022 8:40 PM EDT): We will update echo and stress test. Continue metoprolol. History of pleural effusion 07/10/2022 Allergic rhinitis 07/08/2022 Backache 07/08/2022 Benign essential hypertension 07/08/2022 Assessment & Plan (07/10/2022 8:40 PM EDT): Well-controlled on metoprolol 25 mg. Afraid to increase for chest pain due to blood pressure 118/62 today. Breast lump 07/08/2022 DDD (degenerative disc disease), cervical 2022 Fatigue 07/08/2022 Assessment & Plan (07/10/2022 8:40 PM EDT): Update echo and stress test. Gastroesophageal reflux disease 07/08/2022 Hyperlipidemia 07/08/2022 Assessment & Plan (07/10/2022 8:42 PM EDT): Risk factor for CAD. On statin. Followed by Dr. Gramajo. Requesting last set of labs. 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 Immunizations Immunization Administration Dates Next Due 31-influenza Vac Quardvalent Preservativ 11/18/2013 COVID-19 (LIZY) 06/07/2021,01/20/2021, 021 Fluzone High-Dose 65+YRS 01/28/2019,02/03,12/19/2016,12/30,12/10/2014 Fluzone High-Dose 65+yrs 12/24/2021,12/04/2020,0 11/15/2019 Pneumococcal Conjugate 13-Va lent (PCV13) 03/18/2014 Pneumococcal Polysaccharide (PPSV23) 11/09/2010 Td (TDVAX) 05/10/1996 Td, Not Adsorbed 03/06/1996 Tdap 05/27/2011 Zostavax 03/06/2013 Family History Medical History Relation Name Comments Coronary artery disease Father Kidney disease Mother Relation Name Status Comments Brother 1 Alive Brother 2 Alive Father Mother Social History Tobacco Use Types Packs/Day Years Used Date Smoking Tobacco: Never Passive Smoke Exposure: Never Smokeless Tobacco: Never Alcohol Use Standard Drinks/Week Comments Never 0 (1 standard drink = 0.6 oz pur e alcohol) Abuse Screen Answer Date Recorded Unsafe at Home or Work/School Not on file Feels Threatened by Someone? Not on file Does Anyone Keep You from Co ntacting Others or Doint Things Outside the Home? Not on file 12/16/2022 Physical Sign of Abuse Present Not on file 1 Housing Stability Answer Date Recorded Current Living Arrangements Not on file 12/04 Potentially Unsafe Housing Conditions Not on juanjo e 12/16/2022 Family and Community Support Answer Jermaine e Recorded Help with Day-to-Day Activities Not on file 12/16/2022 Lonely or Isolated Not on file 12/16/2022 Employment Answer Date Recorded Do you want help finding or keeping work or a amaris b? Not on file 12/16/2022 Disabilities Answer Date Recorded Concentrating, Remembering, or Making Decisions Difficulty Not on file 12/16/2022 Doing Errands Independently Difficulty Not on fi le 12/16/2022 Education Answer Date Recorded Help with school or training? Not on file Preferred Language Not on file 12/16/2022 Comments Unknown Sex and Gender Information Value Date Recorded Sex Assigned at Not on file Legal Sex Female 3:24 PM EST Gender Identity Not on file Sexual Orientation Not on file Last Filed Vital Signs Vital Sign Reading Time Taken Comments Blood Pressure 130/80 08/19/2022 9:50 AM EDT Pulse 52 08/19/2022 9:50 AM EDT Temperature - - Respiratory Rate - - Oxygen Saturation 98% 08/19/2022 9:50 AM EDT Inhaled Oxygen Concentration - - Weight 68 kg (150 lb) 08/19/2022 9:50 AM EDT Height 165.1 cm (5' 5 ) 08/19/2022 9:50 AM EDT Body Mass Index 24.96 08/19/2022 9:50 AM EDT Plan of Treatment Health Maintenance Due Date Last Done Comments DXA SCAN 1935 LIPID PANEL 1935 RSV Vaccine - Adults (1 - 1- dose 75+ series) 02/15/2011 ZOSTER VACCINE (2 of 3) 05/01/2013 03/06/2013 TDAP/TD VACCINES (3 - Td or Tdap) 05/26/2021 05/27/2011, 05/10/1996, 03/06/1996 ANNUAL WELLNESS VISIT 07/08/2022 INFLUENZA VACCINE 10/04/2024 12/24/2021, , 11/15/2019, Additional history exists COVID-19 Vaccine ( - 2024-2 6 season) 2024 06/07/2021, 01/20/2021, 06/06/2020 Pneumococcal Vaccine 50+ Completed 03/18/2014, 08/2010 Insurance [facility] Care Teams Pivot End Polisher Relationship Specialty Start Date End Date Violetta Gramajo MD [address] [place] [id number] PCP - General Family Medicine 07/08/22
--- OUTSIDE RECORDS SUMMARY | 2024-11-29 21:39 | XMS_ITS | Data Portability ---
Author Organization [place] - [facility] - [facility] & [facility] Address [address] [place] [address] Assessment Encounter Date Assessment Date Assessment LastModified by Organization Details LastModified Time 10/24/2022 10/24/2022 This is a 87 yea r old female referred to [facility] by Dr. Gramajo for management of [...] latissimus dorsi * Schedule: Left GTB injection ([place]) if the problem persists after the TPI injection * Follow Up: Post procedures ([place]) -------- I have discussed in great detail [...] __ __ __ __ __ _ MACKENZIE: [id number] I have reviewed patient's MACKENZIE report prior to prescribing Schedule II, III, and IV medications that require review by law.. [email or web address] Not available 10/26/2022 08:39:12 11/29/2022 11/29/2022 This is a 87 yea r old female referred to [facility] by Dr. Gramajo for management of [...] __ __ __ __ __ _ MACKENZIE: [id number] I have reviewed patient's MACKENZIE report prior to prescribing Schedule II, III, and IV medications that require review by law.. [email or web address] Not available 11/29/2022 11:03:48 Plan of Treatment Reminders Order Date Submit Date Provider Last Modified By Organization Details Last Modified Time Details Appointments None recorded. Lab None recorded. Referral None recorded. Procedures injection , trigger point (PROC) - , [id number]; Right latissimu s dorsi, rhomboid, levator scapulae [email or web address] MD, [address], [address], [place], [address], 3 14:32:31 arthrocen tesis, aspiratio n and/or injection , major joint or bursa (PROC) - , , left greater trochante r bursa [id number] MD, [address], [facility] [address], [place], [address], 3 11:29:06 Surgeries None recorded. Imaging XR, lumbar spine 2022 023 [facility] (Registration ), [address] [place], [address], 3 11:17:06 XR, thoracic spine 2022 023 [facility] (Registration ), [address] [place], [address], 3 11:17:06 XR, cervical spine 2022 023 [facility] (Registration ), [address] [place], [address], 3 11:17:06 Medication Orders None recorded. Patient TargetsNo targets recorded. Patient InstructionsNo instructions recorded. Reason for Referral None Reported. Results Created Date Observation Date Name Description Value Unit Range Abnormal Flag Note LastModifiedBy Organization Detail LastModifiedTime 11/30/1909/27/2013 CT, cervi steve spine , w/o contr ast No observ ation record ed. [email or web address] Not Available 11/29 09:55:12 11/30/1911/29/2022 XR, thora cic spine , 2 view [facility] [address] [place] [address] Phone: Fax: Name: JENNIFER GANDARA Exam Date: : 1934 Age 87 Gender : F Access ion: [id number] Physic james: ELIANE MASCORRO Facili ty: [facility] Facili ty HSV: Outpat ient Exam: THORAC [...] By: Andrew Laughlin Transc ribed On: 023 1:03 PM Electr onical ly signed by: ANDREW LAUGHLIN Thank you for referr ing JENNIFER GANDARA to [facility]. Legall y authen ticate d by POPE ANDREW Nieves 11-29 13:03: 50 CC'ed Logic: Orderi ng Provid er: SEGUNDO DEL RIO Attend ing Provid er: SEGUNDO DEL RIO Admitt ing Provid er: SEGUNDO [email or web address] [place] [address] - Physical Therapy [address] [facility], [place], [address], 12/01/2022 09:20:15 11/30/19 23 11/29/2022 lumba r spine 2 to 3V [facility] [address] [place] [address] Phone: Fax: Name: JENNIFER GANDARA Exam Date: 023 : 1934 Age 87 Gender : F Access ion: [id number] Physic james: ELIANE MASCORRO Facili ty: [facility] Facili ty HSV: Outpat ient Exam: LUMBAR [...] By: Andrew Laughlin Transc ribed On: 023 1:04 PM Electr onical ly signed by: ANDREW LAUGHLIN Thank you [facility] Legall y authen ticate d by POPE ANDREW Nieves 11-29 13:04: 32 CC'ed Logic: Orderi ng Provid er: SEGUNDO DEL RIO Attend ing Provid er: SEGUNDO DEL RIO Admitt ing Provid er: SEGUNDO DEL RIO [email or web address] [place] [address] - Physical Therapy [address] [facility], [place], [address], 12/01/2022 09:20:15 11/30/19 23 11/29/2022 cervi steve spine 2 to 3V [facility] [address] [place] [address] Phone: Fax: Name: JENNIFER GANDARA Exam Date: : 1934 Age 87 Gender : F Access ion: [id number] Physic james: ELIANE MASCORRO Facili ty: [facility] Facili ty HSV: Outpat ient Exam: CERVIC [...] ribed By: Andrew Laughlin Transc ribed On: 1:05 PM Electr onical ly signed by: ANDREW LAUGHLIN Thank you for referr JENNIFER Hodges to [facility]. Legall y authen ticate d by POPE ANDREW Nieves 0 11-29 13:05: 09 CC'ed Logic: Orderi ng Provid er: SEGUNDO DEL RIO Attend ing Provid er: SEGUNDO DEL RIO Admitt ing Provid er: SEGUNDO DEL RIO [email or web address] [place] [address] - Physical Therapy [address] [place] [address], [address], 12/01/2022 09:20:15 Result Notes Documentation Provider Name and Address Organization Details Recorded Time Xr, Thoracic Spine, 2 View : [facility] [address] [place] [address] Name: SUMMER GANDARA Exam Date: 11/29/2022 : 1935 Age 87 Gender: F Physician: ELIANE LANE Facility: [facility] Facility HSV: Outpatient Exam: THORACIC SPINE 2V THORACIC SPINE HISTORY: Back pain FINDINGS: 3 views of the thoracic spine demonstrate no evidence of fracture. There is levocurvature. There is moderate to severe degenerative change. IMPRESSION: No acute bony abnormality. Spondylosis as above. Films reviewed , interpreted and dictated by Transcribed by Jose David Alamo PA-C. Dictated By: ANDREW LAUGHLIN Transcribed By: Andrew Laughlin Transcribed On: 11/29/2022 1:03 PM Electronically signed by: ANDREW LAUGHLIN 11/29/2022 Thank you for referring SUMMER GANDARA to [facility]. Legally authenticated by POPE ANDREW Nieves 2022-11-29 13:03:50 CC'ed Logic: Ordering Provider: CASANDRA DEL RIO Attending Provider: CASANDRA DEL RIO Admitting Provider: LENORE ALBARRAN [address] [facility], [place], [address], [place] [facility] [place] 12/01/2022 09:20:15 Problems Name Problem SNOMED Code Status Onset Date Resolution Date Notes Provider Name and Address Organization Details Recorded Time Spinal enthesopath y 91962955 Active 2022 [place] [facility] [facility] [place], [place] - [facility] & [place] 3 09:59:27 Trochanteri c bursitis of left hip 6981667949462 03 Active 2022 [place] [facility] [facility] [place], [place] [facility] [place] & [place] 3 09:59:27 Radicular pain 27254898 Active 2022 [place] [facility], [place] [facility] [place] & [place] 3 09:59:27 Myofascial pain 699960672 Active 2022 [place], [place] [facility] [place] & [place] 3 09:59:27 Notes:Some problems listed i n Documents: #[id number], #[id number] could not be added to this patient's chart. Please review these documents and add these problems to the patient's chart manually as needed. Problem Notes None recorded. Procedures Surgical History Date Name Laterality Status Provider Name and Address Organization Details Recorded Time 3 Injection Only completed Alma Billy [place] - [facility] - [place] & [place] 11/14/2022 10:30:52 Imaging Results None recorded. Procedure Notes None recorded. Medical Equipment None [...] blood by Pulse oximetry Heart rate Systolic And Diastolic Provider Name and Address Organization Details Last Updated DateTime 3 48776.2 8 g 97.5 [degF] 92 % 92 % 55 /min 138/72 mm[Hg] Janie Bell [facility] & [place] 3 14:25:22 Date Recorded Body weight Body temperature Oxygen saturation Oxygen saturation in Arterial blood by Pulse oximetry Heart rate Systolic And Diastolic Provider Name and Address Organization Details Last Updated DateTime 3 70725.0 8 g 96.9 [degF] 99 % 99 % 55 /min 132/63 mm[Hg] Liliane Claire [place] - [facility] & [place] 3 09:59:45 Social History None recorded. Functional Status Question Answer Note LastModified by Organization D etails LastModified Time Do you or have you ever used any other forms of tobacco or nicotine? No [email or web address] Information not available 10/24/2022 Mental Status None recorded. Family History Nothing Reported. Medical History No medical history recorded. Gynecological HistoryNo gynecological history recorded. Obstetrics History GPAL:G 0 P 0 0 0 0 Past Encounters Encounter ID Performer Location Encounter Start Date Encounter Closed Date Diagnosis/Indication Diagnosis SNOMED-CT Code Diagnosis ICD10 Code Diagnosis IMO Codes Diagnosis Note [id number] Eliane Lane MD [facility]-[address] [place] [address] 10/24/2022 12:57:12 10/24/2022 14:30:58 Trochanteric bursitis of left hip 2676069212 45265 M70.62 Spinal enthesopathy 1031 7009 M46.00 M46.03 Radicular pain 93754108 M54.10 Myofascial pain 00163549 [id number] MD [facility] [address] [address] 11/14/2022 09:58:13 11/14/2022 10:34:07 Spinal enthesopathy 88046221 M46.[id number] MD [facility] [address] [address] 11/29/2022 09:39:25 11/29/2022 12:05:47 Trochanteric bursitis of left hip 5415822854 27688 M70.62 Spinal enthesopathy 1031 7009 M46.00 M46.03 Radicular pain 99878900 M54.10 Myofascial pain 85477012 9 M79.10 Pain in ce rvical spine 107567913 M54.2 Thoracic back pain 13956 8004 M54.6 Low back pain 649881695 M54.50 Health Concerns Section Related Observation LastModified by Organization Detai ls LastModified Time None Recorded Concern Status LastModified by Organization Details LastModified Time None Recorded Advance Directives Directive None Recorded Payers Insurance Date Sequence Insurance Name Policy Number Policy Quintero Covered Member ID Quintero Member ID Guarantor Name 09/23/2023 1 [place]MEDICARE REPLACEMENT HMO) [id number] Summer Gandara [id number] Summer Gandara Notes Date Note Type Note Provider Name and Address Organization Details Recorded Time 3 text/html ROS as noted in the HPI This is a 87 year old female referred to [facility] by Dr. Gramajo for management of [...] Has not done PT. Previously went to [facility] for about 2 years, who sent her to [place] of which she had 2 injections (for he radicular to the RLE). Did not help the pain. Eliane Lane MD [address], [place], [address], [facility] 10/26/2022 08:39:19 3 text/html ROS as noted in the HPI Eliane Lane MD [address], [place], [address], [place] - [facility] & [place] 11/14/2022 10:57:24 3 text/html ROS as noted in the HPI This is a 87 year old female referred to [facility] by Dr. Gramajo for management of [...] Tx: N/ASurgery: N/AImaging/Studies: N/A Eliane Lane MD [address], [place], [address], [place] [facility] [place] & [place] 11/30/2022 15:32:59 OBGyn Episode No OBEpisode recorded.
[2024-12-02 11:32] LABS: Albumin Level 4.3 g/dl (3.5-5.0); Chloride 105 mmol/L (98-107); Potassium 5.8 mmoL/L (3.5-5.1); Sodium 141 mmol/L (136-145)
[2024-12-02 11:35] LABS: Alanine Aminotransferase 11 U/L (12-78); Albumin/Globulin Ratio 1.4 (1.1-1.8); Alkaline Phosphatase 102 U/L (38-126); Anion Gap 12.8 mEq/L (5-15); Aspartate Amino Transferase 27 U/L (14-36); Bilirubin,Total 0.7 mg/dl (0.2-1.3); Calcium 10.0 mg/dl (8.4-10.2); Carbon Dioxide 29 mmol/L (22.0-30.0); Cholesterol 185 mg/dl (140-200); Globulin 3.0 g/dL (1.3-3.2); Glucose 92 mg/dl (74-100); Total Protein,Serum 7.3 g/dl (6.3-8.2); Triglycerides 96 mg/dl (30-150)
[2024-12-02 11:40] LABS: Blood Urea Nitrogen 23 mg/dl (7-17)
[2024-12-02 11:51] LABS: Free T4 (Free Thyroxine) 1.52 ng/dl (0.78-2.19)
[2024-12-02 12:05] LABS: Creatinine,Serum 1.00 mg/dl (0.52-1.04); Estimated Glomerular Filt Rate 52 ml/min (>60); GFR (African American) 63 ML/MIN (>60)
[2024-12-02 12:06] LABS: Thyroid Stimulating Hormone 0.24 uIU/mL (0.465-4.68)
[2024-12-02 12:47] LABS: HDL Cholesterol 50 mg/dl (40-60)
== END 2024-11-29 23:59 | disposition home or self-care (01) ==
LOC: LAB 21:37
PROVIDERS: PCP Family Medicine; Visit Provider Family Medicine
DX: E78.5 Hyperlipidemia, unspecified (principal); E03.9 Hypothyroidism, unspecified
CPT/HCPCS: 80053; 80061; 84439; 84443

== ENCOUNTER 2024-12-09 11:38 | Outpatient (CLI) | payer MEDICARE, SELFPAY ==
--- OUTSIDE RECORDS SUMMARY | 2024-12-09 11:41 | XMS_ITS | Clinical Summary ---
Author Organization [facility] Address [address] [place] [address] Care Team Providers Care Director Of Physical Therapy Name Role Phone Violetta Gramajo MD Primary [...] Pneumococcal Vaccine 50+ Completed 03/18/2014, 08/2010 Insurance [employer] MED[employer] ADVANT[employer] Care Teams Director Of Physical Therapy Relationship Specialty Start Date End Date Violetta Gramajo MD [address] [place] [address] PCP - General Family Medicine 07/08/22
--- OUTSIDE RECORDS SUMMARY | 2024-12-09 11:41 | XMS_ITS | Data Portability ---
Author Organization [facility]a, P.S.CJackie, [facility] Address [address] [place] [address] Assessment Encounter Date Assessment Date Assessment LastModified [...] external ear and we recommend the local jitterbug operator group that visit Frederic weekly. She does have chronic neck pain with known significant degenerative disc disease and arthritis. She did have some physical therapy for this two years ago that helped marginally. She apparently has been seeing an orthopedist in [place] who has tried some back injections but [...] apparently had been seeing an orthopedist in [place] who tried some back injections but we [...] tomorrow. She receives the flu vaccine today. Not available 11/29/2022 23:21:52 Plan of Treatment Reminders Order Date Submit Date Provider Last Modified By Organization Details Last Modified Time Details Appointments None recorded. Lab culture, urine 2022 023 [facility], [address] [place], [address], 3 06:24:37 urinalysis, dipstick 2022 023 [facility], [address] [place], [address], 3 10:20:06 Referral pain management [facility] [address], [address] , eTrry Nieves, [place], [address], 3 15:35:01 pain management referral [address], [address] , Terry Nieves, [place], [address], 3 15:35:[address] referral - lesion on left ear 2021 022 [facility], [address] , Terry Shepherd, [place], [address], 2 15:36:16 Procedures None recorded. Surgeries None recorded. Imaging None recorded. Medication Orders gabapentin 300 mg capsule 2022 023 [facility], [address], [place], [place], [id number], 3 16:34:08 diclofenac 1 % topical gel 2022 023 [facility], [address], [place], [place], [id number], 3 14:49:07 omeprazole 20 mg capsule,del ayed release 2022 023 [facility] #43470, [address], [place], [id number], 3 14:49:08 nitrofurant oin monohydrate /macrocryst als 100 mg capsule 2022 023 [facility] #82067, [address] [place], [id number], 3 14:28:01 dexamethaso ne sodium phosphate 4 mg/mL injection solution [address] [facility]43463, [address] [place], [id number], 3 10:17:44 methylpredn isolone 4 mg tablets in a dose pack [address] [facility] #09046, [address] [place], [id number], 3 10:17:54 tramadol 50 mg tablet 2021 022 [facility]72843, [address] [place] [address], [id number], 3 14:28:13 Patient TargetsNo targets recorded. Patient Instructions Encounter Date Encounter Id Patient Instructions Last Modified By Organization Details Last Modified Time 09/13/2021 [id number] neck pain: care instructions Not available 09/13/2021 15:13:15 neck arthritis: exercises Not available 09/13/2021 15:13:15 12/24/2021 [id number] acute low back pain: exercises Not available 12/24/2021 15:12:17 low back pain: exercises Not available 12/24/2021 15:12:17 09/23/2022 [id number] neck pain: care instructions Not available 09/23/2022 14:49:01 neck arthritis: exercises Not available 09/23/2022 14:49:01 Tdap (tetanus, diphtheria, pertussis) vaccine: what you need to know Not available 09/23/2022 14:49:01 Reason for Referral Benefits Consultant Referral for S kin lesion lesion on left ear Referring Physician: Violetta Gramajo [facility], Encounter Date: 09/13/2021 Pain Management Referral for Degeneration of lumbar intervertebral disc Referring Physician: Violetta Gramajo [facility], Encounter Date: 09/23/2022 Pain Management Referral for Degeneration of cervical intervertebral disc Referring Physician: Violetta Gramajo [facility], Encounter Date: 09/23/2022 Results Created Date Observation Date Name Description Value Unit Range Abnormal Flag Note LastModifiedBy Organization Detail LastModifiedTime 01/01/2012/31/2021 CBC AUTO W DIFF WBC 16.1 10 4.5-11 .5 high Not Available [facility] (Lab [facility]) [address] [place], [address], 12/31/2021 08:42:52 01/01/2012/31/2021 CBC AUTO W DIFF RBC 4.14 10 4.25-5 .57 low Not Available [facility] (Lab Registration) [address] [place], [address], 12/31/2021 08:42:52 01/01/2012/31/2021 CBC AUTO W DIFF HGB 13.0 g/dL 12.0-1 5.7 Not Available [facility] (Lab Registration) [address] [place], [address], 12/31/2021 08:42:52 01/01/2012/31/2021 CBC AUTO W DIFF HCT 39.8 % 36.0-4 7.0 Not Available [facility] (Lab Registration) [address] [place], [address], 12/31/2021 08:42:52 01/01/2012/31/2021 CBC AUTO W DIFF MCV 96.1 fL 80-95 high Not Available [facility] (Lab Registration) [address] [place], [address], 12/31/2021 08:42:52 01/01/20 22 12/31/2021 CBC AUTO W DIFF MCH 31.4 pg 27.0-3 4.0 Not Available [facility] (Lab Registration) [address] [place], [address], 12/31/2021 08:42:52 01/01/2012/31/2021 CBC AUTO W DIFF MCHC 32.7 g/dL 32.0-3 6.0 Not Available [facility] (Lab Registration) [address] [place], [address], 12/31/2021 08:42:52 01/01/2012/31/2021 CBC AUTO W DIFF platelet count 189 10 150-45 0 Not Available [facility] (Lab Registration) [address] [place], [address], 12/31/2021 08:42:52 01/01/2012/31/2021 CBC AUTO W DIFF RDW 12.5 % 12.3-1 5.1 Not Available [facility] (Lab Registration) [address] [place], [address], 12/31/2021 08:42:52 01/01/2012/31/2021 CBC AUTO W DIFF MPV 11.4 fL 7.4-10 .4 high Not Available [facility] (Lab Registration) [address] [place], [address], 12/31/2021 08:42:52 01/01/20 22 12/31/2021 CBC AUTO W DIFF granulocyte% 80.2 % 40-75 high Not Available [facility] (Lab Registration) [address] [place], [address], 12/31/2021 08:42:52 01/01/2012/31/2021 CBC AUTO W DIFF lymphocyte% 12.1 % 15-57 low Not Available [facility] (Lab Registration) [address] [place], [address], 12/31/2021 08:42:52 01/01/2012/31/2021 CBC AUTO W DIFF monocyte% 5.9 % 4.0-12 .0 Not Available [facility] ([facility]) [address] [place], [address], 12/31/2021 08:42:52 01/01/2012/31/2021 CBC AUTO W DIFF eosinophil% 0.8 % 0.0-4. 0 Not Available [facility] (Lab Registration) [address] [place], [address], 12/31/2021 08:42:52 01/01/2012/31/2021 CBC AUTO W DIFF basophil% 0.2 % 0.0-1. 0 Not Available [facility] (Lab Registration) [address] [place], [address], 12/31/2021 08:42:52 01/01/2012/31/2021 CBC AUTO W DIFF immature granulocytes % 0.8 % 0.0-0. 8 Not Available [facility] ([facility] Registration) [address] [place], [address], 12/31/2021 08:42:52 01/01/2012/31/2021 CBC AUTO W DIFF granulocyte# 12.90 10 Not Available [facility] (Lab Registration) [address] [place], [address], 12/31/2021 08:42:52 01/01/2012/31/2021 CBC AUTO W DIFF lymphocyte# 1.95 10 Not Available [facility] (Lab Registration) [address] [place], [address], 12/31/2021 08:42:52 01/01/2012/31/2021 CBC AUTO W DIFF monocyte# 0.95 10 Not Available [facility] ([facility]) [address] [place], [address], 12/31/2021 08:42:52 01/01/20 22 12/31/2021 CBC AUTO W DIFF eosinophil# 0.13 10 Not Available [facility] (Lab Registration) [address] [place], [address], 12/31/2021 08:42:52 01/01/20 22 12/31/2021 CBC AUTO W DIFF basophil# 0.04 10 Not Available [facility] (Lab Registration) [address] [place], [address], 12/31/2021 08:42:52 01/01/20 22 12/31/2021 CBC AUTO W DIFF immature granulocytes # 0.13 10 Not Available [facility] (Lab Registration) [address] [place], [address], 12/31/2021 08:42:52 01/01/2012/31/2021 CBC AUTO W DIFF manual differential NO Not Available [facility] (Lab Registration) [address] [place], [address], 12/31/2021 08:42:52 01/01/2012/31/2021 CBC AUTO W DIFF note Unles s other mills noted testi ng perfo rmed at: [facility] [address] [place] [address] [phone] Juan zavala MD CLIA: [id number] Not Available [facility] ([facility] Registration) [address] [place], [address], 12/31/2021 08:42:52 01/01/20 22 12/31/2021 BASIC METAB OLIC PANEL sodium 136 mmol/ L 136-14 5 Not Available [facility] (Lab Registration) [address] [place], [address], 12/31/2021 08:51:55 01/01/2012/31/2021 BASIC METAB OLIC PANEL potassium 3.8 mmol/ L 3.5-5. 1 Not Available [facility] (Lab Registration) [address] [place], [address], 12/31/2021 08:51:55 01/01/2012/31/2021 BASIC METAB OLIC PANEL chloride 102 mmol/ L 98-107 Not Available [facility] (Lab Registration) [address] [place], [address], 12/31/2021 08:51:55 01/01/2012/31/2021 BASIC METAB OLIC PANEL carbon dioxide 31 mmol/ L 21-32 Not Available [facility] (Lab Registration) [address] [place], [address], 12/31/2021 08:51:55 01/01/2012/31/2021 BASIC METAB OLIC PANEL anion gap 3.0 Not Available [facility] (Lab Registration) [address] [place], [address], 12/31/2021 08:51:55 01/01/2012/31/2021 BASIC METAB OLIC PANEL glucose 101 mg/dL 70-110 Not Available [facility] (Lab Registration) [address] [place], [address], 12/31/2021 08:51:55 01/01/2012/31/2021 BASIC METAB OLIC PANEL blood urea nitrogen 12 mg/dL 7-18 Not Available [facility] (Lab Registration) [address] [place], [address], 12/31/2021 08:51:55 01/01/2012/31/2021 BASIC METAB OLIC PANEL creatinine 0.9 mg/dL 0.6-1. 0 Not Available [facility] (Lab Registration) [address] [place], [address], 12/31/2021 08:51:55 01/01/2012/31/2021 BASIC METAB OLIC PANEL BUN/creatini ne ratio 13.3 ratio 9-21 Not Available [facility] (Lab Registration) [address], [place], [address], 12/31/2021 08:51:55 01/01/2012/31/2021 BASIC METAB OLIC PANEL estimated glom filtration rate 63 mL/mi n >60- Not Available [facility] (Lab Registration) [address] [place], [address], 12/31/2021 08:51:55 01/01/2012/31/2021 BASIC METAB OLIC PANEL calcium 9.5 mg/dL 8.5-10 .1 Not Available [facility] (Lab Registration) [address] [place], [address], 12/31/2021 08:51:55 01/01/2012/31/2021 BASIC METAB OLIC PANEL note Unles s other mills noted testi ng perfo rmed at: [facility] [address] [place] [address] [phone] Juan zavala MD CLIA: [id number] Not Available [facility] (Lab Registration) [address] [place], [address], 12/31/2021 08:51:55 01/01/2012/31/2021 UA W MICRO AUTO color yellow yellow Not Available [facility] (Lab Registration) [address] [place], [address], 12/31/2021 08:55:12 01/01/20 22 12/31/2021 UA W MICRO AUTO appearance cloudy clear Not Available [facility] (Lab Registration) [address] [place], [address], 12/31/2021 08:55:12 01/01/2012/31/2021 UA W MICRO AUTO glucose NORM normal Not Available [facility] (Lab Registration) [address] [place], [address], 12/31/2021 08:55:12 01/01/2012/31/2021 UA W MICRO AUTO bilirubin NEGATI VE negati ve Not Available [facility] (Lab Registration) [address] [place], [address], 12/31/2021 08:55:12 01/01/2012/31/2021 UA W MICRO AUTO ketone NEGATI VE mg/dL negati ve Not Available [facility] (Lab Registration) [address] [place], [address], 12/31/2021 08:55:12 01/01/2012/31/2021 UA W MICRO AUTO specific gravity 1.010 1.005- 1.035 Not Available [facility] (Lab Registration) [address] [place], [address], 12/31/2021 08:55:12 01/01/2012/31/2021 UA W MICRO AUTO blood NEGATI VE /mcL negati ve Not Available [facility] (Lab Registration) [address] [place], [address], 12/31/2021 08:55:12 01/01/2012/31/2021 UA W MICRO AUTO pH 7.00 5.0-7. 5 Not Available [facility] (Lab Registration) [address] [place], [address], 12/31/2021 08:55:12 01/01/2012/31/2021 UA W MICRO AUTO protein NEGATI VE mg/dL negati ve Not Available [facility] (Lab Registration) [address] [place], [address], 12/31/2021 08:55:12 01/01/20 22 12/31/2021 UA W MICRO AUTO urobilnogen NORM mg/dL normal Not Available [facility] (Lab Registration) [address] [place], [address], 12/31/2021 08:55:12 01/01/2012/31/2021 UA W MICRO AUTO nitrite POSITI VE negati ve delta Not Available [facility] (Lab Registration) [address] [place], [address], 12/31/2021 08:55:12 01/01/2012/31/2021 UA W MICRO AUTO leukocyte esterase 500 (2+) /mcL negati ve Not Available [facility] (Lab Registration) [address] [place], [address], 12/31/2021 08:55:12 01/01/2012/31/2021 UA W MICRO AUTO culture? YES Not Available [facility] (Lab Registration) [address] [place], [address], 12/31/2021 08:55:12 01/01/2012/31/2021 UA W MICRO AUTO RBC 0-3 0-3 Not Available [facility] (Lab Registration) [address] [place], [address], 12/31/2021 08:55:12 01/01/2012/31/2021 UA W MICRO AUTO WBC 5-10 none seen Not Available [facility] (Lab Registration) [address] [place], [address], 12/31/2021 08:55:12 01/01/2012/31/2021 UA W MICRO AUTO epithelial cell 1-5 none seen Not Available [facility] (Lab Registration) [address] [place], [address], 12/31/2021 08:55:12 01/01/20 22 12/31/2021 UA W MICRO AUTO bacteria 4+ none seen Not Available [facility] (Lab Registration) [address] [place], [address], 12/31/2021 08:55:12 01/01/20 22 12/31/2021 UA W MICRO AUTO note Unles s other mills noted testi ng perfo rmed at: [facility] [address] [facility] [address] [place] [address] [phone] Juan zavala MD CLIA: [id number] Not Available [facility] (Lab Registration) [address] [place], [address], 12/31/2021 08:55:12 01/01/20 22 12/31/2021 CULTU RE URINE culccur ===== ===== ===== ===== ===== ===== ===== ===== ===== ===== ===== ===== ===== ===== ===== ===== ===== ===== ===== ===== ===== ===== ===== ===== Speci men NO.: [id number] Exam Statu s: Final Proce dure: [...] L Gram Negat alexus Rods Not Available [facility] (Lab Registration) [address] , [place], [address], 01/02/2022 07:07:26 01/01/20 22 12/31/2021 CULTU RE URINE note Unles s other mills noted testi ng perfo rmed at: [facility] [address] [place] [address] [phone] Juan zavala MD CLIA: [id number] Not Available [facility] (Lab Registration) [address] , [place], [address], 01/02/2022 07:07:26 04/11/19 23 04/12/2022 TSH TSH 3.39 mIU/L 0.40-4 .50 normal Not Available [facility] [address] [email or web address], [place], [address], 04/12/2022 07:40:39 04/11/19 23 04/12/2022 T4 (THYR OXINE ), TOTAL T4 (thyroxine), total 6.7 mcg/d L 5.1-11 .9 normal Not Available [facility] [address] [place], [address], 04/12/2022 07:40:40 04/15/19 23 04/18/2022 CULTU RE, URINE , ROUTI NE culture, urine, routine CULTU RE, URINE , ROUTI NE Micro Numbe r: [id number] Test Statu s: Final Speci men [...] port Tube. Not Available [facility] [address] [place], [address], 04/18/2022 06:24:37 04/15/19 23 04/15/2022 urina lysis , dipst ick Leukocytes Modera te Not Available [facility] [address] [place], [address], 04/15/2022 10:19:13 04/15/19 23 04/15/2022 urina lysis , dipst ick Nitrite negati ve Not Available [facility] [address] [place], [address], 04/15/2022 10:19:13 04/15/19 23 04/15/2022 urina lysis , dipst ick Urobilinogen .2 Not Available [facility] [address] [place], [address], 04/15/2022 10:19:13 04/15/19 23 04/15/2022 urina lysis , dipst ick Protein Negati ve Not Available [facility] [address] [place], [address], 04/15/2022 10:19:13 04/15/19 23 04/15/2022 urina lysis , dipst ick pH 6.0 Not Available [facility] [address] [place], [address], 04/15/2022 10:19:13 04/15/19 23 04/15/2022 urina lysis , dipst ick Blood Negati ve Not Available [facility] [address] [place], [address], 04/15/2022 10:19:13 04/15/19 23 04/15/2022 urina lysis , dipst ick Specific Dawson 1.025 Not Available [place] [address] [place], [address], 04/15/2022 10:19:13 04/15/19 23 04/15/2022 urina lysis , dipst ick Ketone Negati ve Not Available [facility] [address] [place], [address], 04/15/2022 10:19:13 04/15/19 23 04/15/2022 urina lysis , dipst ick Bilirubin Negati ve Not Available [facility] [address] [place], [address], 04/15/2022 10:19:13 04/15/19 23 04/15/2022 urina lysis , dipst ick Glucose Negati ve Not Available [facility] [address] [place], [address], 04/15/2022 10:19:13 09/23/19 23 09/23/2022 LIPID PANEL , STAND BENITO cholesterol, total 142 mg/dL <200 normal Not Available [facility] [address] [facility], [place], [address], 09/23/2022 13:39:23 09/23/19 23 09/23/2022 LIPID PANEL , STAND BENITO HDL cholesterol 50 mg/dL > or = 50 normal Not Available [facility] [address], [place], [address], 09/23/2022 13:39:23 09/23/19 23 09/23/2022 LIPID PANEL , STAND BENITO triglyceride s 79 mg/dL <150 normal Not Available [facility] [address] [facility], [place], [address], 09/23/2022 13:39:23 09/23/19 23 09/23/2022 LIPID PANEL [...] 2061- 2068 (http ://ed ucati on.Qu Mera [employer]. com/f aq/FA Q164) Not Available [facility] [address] [facility], [place], [address], 09/23/2022 13:39:23 09/23/19 23 09/23/2022 LIPID PANEL , STAND BENITO chol/HDLC ratio 2.8 (calc ) <5.0 normal Not Available [facility] [address], [place], [address], 09/23/2022 13:39:23 09/23/19 23 09/23/2022 LIPID PANEL , STAND BENITO non HDL cholesterol 92 mg/dL _(steve c) <130 normal For patie nts with diabe tucker plus 1 major ASCVD risk facto r, treat ing to a non-H DL-C goal of <100 mg/dL (LDL- C of <70 mg/dL ) is kimberley jenseno n. Not Available [facility] [address] [place], [address], 09/23/2022 13:39:23 09/23/19 23 09/23/2022 COMPR EHENS ALEXUS METAB OLIC PANEL glucose 89 mg/dL 65-99 normal Fasti ng refer ence inter delmer Not Available [facility] [address] [place], [address], 09/23/2022 13:39:24 09/23/19 23 09/23/2022 COMPR EHENS ALEXUS METAB OLIC PANEL urea nitrogen (BUN) 14 mg/dL 7-25 normal Not Available [facility] [address] [place], [address], 09/23/2022 13:39:24 09/23/19 23 09/23/2022 COMPR EHENS ALEXUS METAB OLIC PANEL creatinine 0.96 mg/dL 0.60-0 .95 high Not Available [facility] [address] [place], [address], 09/23/2022 13:39:24 09/23/19 23 09/23/2022 COMPR EHENS ALEXUS METAB OLIC PANEL eGFR 58 mL/mi n/1.7 3m2 > or = 60 low The eGFR is based on the CKD-E PI 2020 equat ion. To calcu late the new eGFR from a previ ous Creat inine or Cysta rock C resul t, go to https ://alla bryant.mita hargrove/gurdeep zavala/ kdoqi /gfr% 5Fcal culat or Not Available [facility] [address] [place], [address], 09/23/2022 13:39:24 09/23/19 23 09/23/2022 COMPR EHENS ALEXUS METAB OLIC PANEL BUN/creatini ne ratio 15 (calc ) 6-22 normal Not Available [facility] [address] [place], [address], 09/23/2022 13:39:24 09/23/19 23 09/23/2022 COMPR EHENS ALEXUS METAB OLIC PANEL sodium 142 mmol/ L 135-14 6 normal Not Available [facility] [address] [place], [address], 09/23/2022 13:39:24 09/23/19 23 09/23/2022 COMPR EHENS ALEXUS METAB OLIC PANEL potassium 4.9 mmol/ L 3.5-5. 3 normal Not Available [facility] [address] [place], [address], 09/23/2022 13:39:24 09/23/19 23 09/23/2022 COMPR EHENS ALEXUS METAB OLIC PANEL chloride 108 mmol/ L 98-110 normal Not Available [facility] [address] [place], [address], 09/23/2022 13:39:24 09/23/19 23 09/23/2022 COMPR EHENS ALEXUS METAB OLIC PANEL carbon dioxide 28 mmol/ L 20-32 normal Not Available [facility] [address] [place], [address], 09/23/2022 13:39:24 09/23/19 23 09/23/2022 COMPR EHENS ALEXUS METAB OLIC PANEL calcium 9.6 mg/dL 8.6-10 .4 normal Not Available [facility] [address] [place], [address], 09/23/2022 13:39:24 09/23/19 23 09/23/2022 COMPR EHENS ALEXUS METAB OLIC PANEL protein, total 6.7 g/dL 6.1-8. 1 normal Not Available [facility] [address] [place], [address], 09/23/2022 13:39:24 09/23/19 23 09/23/2022 COMPR EHENS ALEXUS METAB OLIC PANEL albumin 4.2 g/dL 3.6-5. 1 normal Not Available [facility] [address] [place], [address], 09/23/2022 13:39:24 09/23/19 23 09/23/2022 COMPR EHENS ALEXUS METAB OLIC PANEL globulin 2.5 g/dL_ (calc ) 1.9-3. 7 normal Not Available [facility] [address] [place], [address], 09/23/2022 13:39:24 09/23/19 23 09/23/2022 COMPR EHENS ALEXUS METAB OLIC PANEL albumin/glob ulin ratio 1.7 (calc ) 1.0-2. 5 normal Not Available [facility] [address] [place], [address], 09/23/2022 13:39:24 09/23/19 23 09/23/2022 COMPR EHENS ALEXUS METAB OLIC PANEL bilirubin, total 0.6 mg/dL 0.2-1. 2 normal Not Available [facility] [address] [place], [address], 09/23/2022 13:39:24 09/23/19 23 09/23/2022 COMPR EHENS ALEXUS METAB OLIC PANEL alkaline phosphatase 59 U/L 37-153 normal Not Available [facility] [employer] [facility] [address] [place], [address], 09/23/2022 13:39:24 09/23/19 23 09/23/2022 COMPR EHENS ALEXUS METAB OLIC PANEL AST 19 U/L 10-35 normal Not Available [facility] [address] [place], [address], 09/23/2022 13:39:24 09/23/19 23 09/23/2022 CLAIRE VAUGHAN METAB OLIC PANEL ALT 10 U/L 6-29 normal Not Available [facility] [address] [place], [address], 09/23/2022 13:39:24 09/23/19 23 09/23/2022 TSH TSH 3.64 mIU/L 0.40-4 .50 normal Not Available [facility] [address] [place], [address], 09/23/2022 13:39:24 09/23/19 23 09/23/2022 CBC (INCL UDES DIFF/ PLT) white blood cell count 4.0 thous and/u L 3.8-10 .8 normal Not Available [facility] [address] [place], [address], 09/23/2022 13:39:25 09/23/19 23 09/23/2022 CBC (INCL UDES DIFF/ PLT) red blood cell count 3.90 dayami on/uL 3.80-5 .10 normal Not Available [facility] [address] [place], [address], 09/23/2022 13:39:25 09/23/19 23 09/23/2022 CBC (INCL UDES DIFF/ PLT) hemoglobin 12.5 g/dL 11.7-1 5.5 normal Not Available [facility] [address] [place], [address], 09/23/2022 13:39:25 09/23/19 23 09/23/2022 CBC (INCL UDES DIFF/ PLT) hematocrit 38.2 % 35.0-4 5.0 normal Not Available [facility] [address] [place], [address], 09/23/2022 13:39:25 09/23/19 23 09/23/2022 CBC (INCL UDES DIFF/ PLT) MCV 97.9 fL 80.0-1 00.0 normal Not Available [facility] [address] [place], [address], 09/23/2022 13:39:25 09/23/19 23 09/23/2022 CBC (INCL UDES DIFF/ PLT) MCH 32.1 pg 27.0-3 3.0 normal Not Available [facility] [address] [facility] [place], [address], 09/23/2022 13:39:25 09/23/19 23 09/23/2022 CBC (INCL UDES DIFF/ PLT) MCHC 32.7 g/dL 32.0-3 6.0 normal Not Available [facility] [address] [place], [address], 09/23/2022 13:39:25 09/23/19 23 09/23/2022 CBC (INCL UDES DIFF/ PLT) RDW 11.9 % 11.0-1 5.0 normal Not Available [facility] [facility] [place], [address], 09/23/2022 13:39:25 09/23/19 23 09/23/2022 CBC (INCL UDES DIFF/ PLT) platelet count 129 thous and/u L 140-40 0 low Not Available [facility] [place], [address], 09/23/2022 13:39:25 09/23/19 23 09/23/2022 CBC (INCL UDES DIFF/ PLT) MPV 12.5 fL 7.5-12 .5 normal Not Available [facility] [address], [place], [address], 09/23/2022 13:39:25 09/23/19 23 09/23/2022 CBC (INCL UDES DIFF/ PLT) absolute neutrophils 1548 cells /uL 1500-7 800 normal Not Available [facility] [address], [place], [address], 09/23/2022 13:39:25 09/23/19 23 09/23/2022 CBC (INCL UDES DIFF/ PLT) absolute lymphocytes 1828 cells /uL 850-39 00 normal Not Available [facility] [address], [place], [address], 09/23/2022 13:39:25 09/23/19 23 09/23/2022 CBC (INCL UDES DIFF/ PLT) absolute monocytes 372 cells /uL 200-95 0 normal Not Available [facility] [address], [place], [address], 09/23/2022 13:39:25 09/23/19 23 09/23/2022 CBC (INCL UDES DIFF/ PLT) absolute eosinophils 200 cells /uL 15-500 normal Not Available [facility] [address], [place], [address], 09/23/2022 13:39:25 09/23/19 23 09/23/2022 CBC (INCL UDES DIFF/ PLT) absolute basophils 52 cells /uL 0-200 normal Not Available [facility] [address], [place], [address], 09/23/2022 13:39:25 09/23/19 23 09/23/2022 CBC (INCL UDES DIFF/ PLT) neutrophils 38.7 % normal Not Available [facility] [address], [place], [address], 09/23/2022 13:39:25 09/23/19 23 09/23/2022 CBC (INCL UDES DIFF/ PLT) lymphocytes 45.7 % normal Not Available [facility] [address] [place], [address], 09/23/2022 13:39:25 09/23/19 23 09/23/2022 CBC (INCL UDES DIFF/ PLT) monocytes 9.3 % normal Not Available [facility] [address] [place], [address], 09/23/2022 13:39:25 09/23/19 23 09/23/2022 CBC (INCL UDES DIFF/ PLT) eosinophils 5.0 % normal Not Available [facility] [address] [place], [address], 09/23/2022 13:39:25 09/23/19 23 09/23/2022 CBC (INCL UDES DIFF/ PLT) basophils 1.3 % normal Not Available [facility] [address] [place], [address], 09/23/2022 13:39:25 09/23/19 23 09/23/2022 HEPAT ITIS [...] a test for HCV RNA (test code 49329 ) is sugge sted. For addit ional infor tony figueroa e refer to http: //daja beauchampque stdia gnost ics.c om/fa q/FAQ 22v1 (This link is being provi ded for infor tony nal/ educa gee l purpo ses only. ) Not Available [facility] [address] [place], [address], 09/23/2022 13:39:25 01/01/20 22 12/31/2021 CT, abdom en + pelvi s, w/o contr ast [facility] [address] [place] [address] Phone: Fax: Name: JENNIFER GANDARA Exam Date: 2021 : 1934 Age 86 Gender : F Access ion: [id number] Physic james: OOTHOU T, MEHRDAD Facili ty: [facility] Facili ty HSV: Outpat ient Exam: CT [...] ANDREW LAUGHLIN 2021 Thank you for referr ing JENNIFER GANDARA to [facility]. Legall y authen ticate d by POPE ANDREW Nieves DO 2021-03 08:56: 26 CC'ed Logic: Orderi ng Provid er: TIMBO CRONIN CC Provid er: CHELA Balderrama Attend ing Provid er: TIMBO CRONIN Referr ing Provid er: TIMBO CRONIN Admitt ing Provid er: TIMBO darling [facility] (Radiology) [address] [place] [address] , [place], [address], 01/05/2022 00:36:32 07/22/19 23 07/20/2022 cardi ac stres s test No observ ation record ed. phong Villalobos MD [address], [place], [address], 09/23/2022 14:07:57 07/22/19 23 07/20/[address] spec wm/ef orthopedics nurse Nuclea r stress test. 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 [id number] DATE OF EXAM: 2022 08:57: 00 [...] 2022 16:44: 56 DT: 2022 19:37: 35 /[id number] [facility] Signed By: HELLEN RENTERIA MD 2022-0 07-21 08:19: 37 CC'ed Logic: Orderi ng Provid er: CHELA Balderrama CC Provid er: CHELA Balderrama Attend ing Provid er: SCHNEI SANJAY DENISE Referr ing Provid er: SCHNEI SANJAY DENISE Admitt ing Provid er: SCHNEI SANJAY DENISE [email or web address] [facility] ([facility]) [address] [place], [address], 09/23/2022 14:07:57 07/28/19 23 07/27/2022 MAMMO , scree cali, digit al, bilat eral [facility] [place] [address] Phone: Fax: Name: JENNIFER GANDARA Exam Date: 023 : 1934 Age 87 Gender : F Access ion: [id number] Physic james: ANDREW CARPENTER Facili ty: [facility] Facili ty HSV: Outpat ient Exam: SCREEN [...] ed By: BEATRIZ GOOD Transc ribed By: marian mendoza tulio Transc ribed On: 023 10:19 AM Electr onical ly signed by: BEATRIZ GOOD 023 Thank you for referr ing [facility] Legall y authen ticate d by JOSEPHINE Can MD 07-27 11:56: 24 CC'ed Logic: Orderi ng Provid er: CHELA Balderrama CC Provid er: CHELA Balderrama Attend ing Provid er: CHELA Balderrama Referr ing Provid er: CHELA Balderrama Admitt ing Provid er: CHELA lou[address] [place] [address] (Radiology) [address] [place] [address] [place], [address], 09/23/2022 14:07:57 Result Notes Documentation Provider Name and Address Organization Details Recorded Time Ct, Abdomen + Pelvis, W/o Contrast : [address] [place] [address] Name: MIGEL GANDARALIS Exam Date: 12/31/2021 : 1935 Age 86 Gender: F Physician: MEHRDAD QUINTERO Facility: [facility] Facility HSV: Outpatient Exam: CT ABD/PEL NO ORAL OR IV CONTR CT ABDOMEN AND PELVIS without contrast HISTORY: Right flank pain COMPARISON: None . TECHNIQUE: Noncontrast exam. Lack of IV contrast limits assessment of the solid organs, the mediastinum, and the vasculature. CT ABDOMEN: Atherosclerosis without aortic aneurysm. There is evidence of calcified granulomatous disease. The heart is mildly enlarged with a small pericardial effusion. Gallbladder is present. The noncontrasted liver, spleen, pancreas and adrenal glands are unremarkable. There is no hydronephrosis. No discrete ureteral stones were identified. There are no abnormally dilated loops of bowel. Moderate retained stool, correlate for constipation. CT PELVIS: The appendix is normal. Bladder is unremarkable. The uterus is present. There are calcifications which may be secondary to fibroid changes. No acute osseous changes. No significant fluid collections in the pelvis. IMPRESSION: Moderate retained stool, correlate for constipation. The heart is mildly enlarged with a small pericardial effusion. This study was performed using automated techniques to achieve radiation exposure as low as reasonably achievable Dictated By: ANDREW LAUGHLIN Transcribed By: ANDREW LAUGHLIN Transcribed On: 12/31/2021 8:56 AM Electronically signed by: ANDREW LAUGHLIN 12/31/2021 Thank you for referring [facility] Legally authenticated by POPE ANDREW Nieves DO 2021-12-31 08:56:26 CC'ed Logic: Ordering Provider: LEON CRONIN CC Provider: ROX CRESPO Attending Provider: LEON CRONIN Referring Provider: LEON CRONIN Admitting Provider: LEON Gramajo MD [address] [facility], [address], [place], [address] 01/05/2022 00:36:32 Mammo, Screening, Digital, Bilateral : [address] [place] [address] Name: SUMMER GANDARA Exam Date: 07/27/2022 : 1935 Age 87 Gender: F Physician: VIOLETTA GRAMAJO Facility: [facility] Facility HSV: Outpatient Exam: SCREEN MAMMO W CAD BILAT Bilateral digital screening mammogram with CAD and with breast tomosynthesis Findings: Comparison dates are 07/26/21 and 5/19/21. Tissue is heterogeneously dense. There are no new or suspicious densities. There are a few benign-appearing calcifications. There are no areas of focal mammographic concern and there have been no significant interval changes. Impression: BI-RADS 1, negative Yearly follow-up mammography is recommended. This patient will be sent a letter from the mammography department with their mammography results. Dictated By: BEATRIZ NERI Transcribed By: tulio stevens Transcribed On: 07/27/2022 10:19 AM Electronically signed by: BEATRIZ NERI 07/27/2022 Thank you for referring [facility] to [facility]. Legally authenticated by HALLE Can MD 2022-07-27 11:56:24 CC'ed Logic: Ordering Provider: ROX CRESPO CC Provider: ROX CRESPO Attending Provider: ROX CRESPO Referring Provider: ROX CRESPO Admitting Provider: ROX Gramajo MD [address] [address], [facility] 09/23/2022 14:07:57 Problems Name Problem SNOMED Code Status Onset Date Resolution Date Notes Provider Name and Address Organization Details Recorded Time Knee pain Active Violetta Gramajo MD [address] [address], [facility] 15:49:41 Peripheral neuropathi c pain 915412608 Active Violetta Gramajo MD [address] [address], [facility] 6 15:49:41 Degenerati on of cervical interverte bral disc 32808047 Марина Gramajo MD [address] [address], [facility] 15:49:41 Muscle pain 47144814 Active Violetta Gramajo MD [address] [address], [facility] 6 15:49:41 Disorder of urinary tract 09673795 Active Violetta Gramajo MD [address] [address], [facility] 6 15:49:41 Fatigue 34313993 Active Violetta Gramajo MD [address] [address], [facility] 6 15:49:41 Urinary tract infectious disease 77441957 Active Violetta Gramajo MD [address] [address], [facility] 6 15:49:41 Bacterial vaginosis 137261862 Active Violetta Gramajo MD [address] [address], [facility] 15:49:41 Candidiasi s of vagina 02287313 Active Violetta Gramajo MD [address] [address], [facility] 15:49:41 Acute bronchopne umonia 503285805 Active Violetta Gramajo MD [address] [address], [facility] 15:49:41 Stomatitis 91527982 Active Violetta Gramajo MD [address] [address], [facility] 6 16:09:39 Breast lump 51820305 [facility] 6 10:23:59 Headache 97689630 Active Violetta Gramajo MD [address] [address], [facility] - [facility] 6 15:49:41 Acute sinusitis 55754741 Active Violetta Gramajo MD [address] [address], [place] - [facility] 6 15:49:41 Superficia l injury of elbow and/or forearm and/or wrist Active Violetta Gramajo MD [address] [address], [facility] - [facility] 6 15:49:41 Gastroesop hageal reflux disease 936346667 Active Violetta Gramajo MD [address] [address], [facility] - [facility] 6 16:09:39 Wheezing 63791584 Active Violetta Gramajo MD [address] [address], [facility] - [facility] 6 15:49:41 Chest pain 93620328 Active Violetta Gramajo MD [address] [address], [facility] - [facility] 6 15:49:41 Symptom of head and neck region 618414708 Active Violetta Gramajo MD [address] [address], [facility] - [facility] 6 15:49:41 Benign essential hypertensi on 4602959 Active controlled Violetta Gramajo MD [address] [address], [facility] - [facility] 6 15:49:41 Hyperlipid emia 59961442 Active controlled Violetta Gramajo MD [address] [address], [facility] - [facility] 6 15:49:41 Backache 105061145 Active Violetta Gramajo MD [address] [address], [facility] - [facility] 6 15:49:41 Neck pain 51663839 Марина Gramajo MD [address] [address], [place] - [facility] 6 15:49:41 Allergic rhinitis 40492530 Active Violetta Gramajo MD [address] [address], [facility] - [facility] 6 15:49:41 Contact dermatitis due to solar radiation Active Violetta Gramajo MD [address] [address], [facility] - [facility] 6 15:49:41 Acute bronchitis 65162111 Марина Gramajo MD [address] [address], [facility] 6 15:49:41 Malaise and fatigue 169757479 Марина Gramajo MD [address] [address], [facility] 6 15:49:41 Insomnia 221007213 Марина Gramajo MD [address] [address], [facility] 6 15:49:41 Noninfecti ous gastroente ritis 07676219 Марина Gramajo MD [address] [address], [facility] 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, [facility] [address], [place], [address], [facility] 6 15:49:41 Problem Notes None recorded. Procedures Surgical History Date Name Laterality Status Provider Name and Address Organization Details Recorded Time 10/10/19 12 Nebulizer tx completed Violetta Gramajo MD [address] [facility] [address], [place], [address], [facility] 10/10/2011 14:36:20 03/06/19 07 Colonoscopy completed Not Available [facility] 01/19/20 11 04:58:32 03/06/19 04 Colonoscopy completed Not Available [facility] 01/19/20 11 04:58:32 03/06/18 98 Carpal tunnel surgery completed Not Available [facility] 01/18/2011 04:58:32 03/06/18 60 Breast Biopsy completed Not Available [facility] 2010 04:58:32 Imaging Results None recorded. Procedure Notes None [...] ntoin monohydra te/macroc rystals 100 mg capsule Take 1 capsule every 12 hours by oral route with meals for 7 days. 09/23 completed Not Available Not Available Not Available chlorhexi dine gluconate 0.12 % mouthwash [...] Available Vitals Date Recorded Body height Body weight Body mass index (BMI) Heart rate Oxygen saturation Oxygen saturation in Arterial blood by Pulse oximetry Body temperature Systolic And Diastolic Provider Name and Address Organization Details Last Updated DateTime 3 165.1 cm 06299.2 2 g 25.6 kg/m2 51 /min 97 % 97 % 97.9 [degF] 147/78 mm[Hg] [facility] 3 10:17:22 Date Recorded Body height Body mass index (BMI) Body weight Heart rate Oxygen saturation Oxygen saturation in Arterial blood by Pulse oximetry Body temperature Systolic And Diastolic Provider Name and Address Organization Details Last Updated DateTime 2 165.1 cm 25 kg/m2 82806.9 6 g 81 /min 96 % 96 % 97.3 [degF] 124/63 mm[Hg] [facility] 2 14:08:45 Date Recorded Body height Body mass index (BMI) Body weight Heart rate Oxygen saturation Oxygen saturation in Arterial blood by Pulse oximetry Body temperature Systolic And Diastolic Provider Name and Address Organization Details Last Updated DateTime 3 165.1 cm 25 kg/m2 48279.5 6 g 54 /min 96 % 96 % 98.1 [degF] 130/72 mm[Hg] [facility] 3 13:45:18 Date Recorded Body height Body mass index (BMI) Body weight Heart rate Oxygen saturation Oxygen saturation in Arterial blood by Pulse oximetry Body temperature Systolic And Diastolic Provider Name and Address Organization Details Last Updated DateTime 3 165.1 cm 24.4 kg/m2 86973.5 9 g 67 /min 96 % 96 % 98.6 [degF] 134/90 mm[Hg] [facility] 3 16:04:04 Date Recorded Body height Body mass index (BMI) Body weight Heart rate Oxygen saturation Oxygen saturation in Arterial blood by Pulse oximetry Body temperature Systolic And Diastolic Provider Name and Address Organization Details Last Updated DateTime 2 165.1 cm 25 kg/m2 12777.9 6 g 64 /min 97 % 97 % 98.2 [degF] 142/85 mm[Hg] [facility] 2 14:38:41 Social History Question Answer Notes LastModified by Organizat ion Details LastModified Time Tobacco Smoking Status Never Smoker Not Available [facility] 12/31/2019 03:11:20 Do You Have An Advance Directive? No [id number] Information not available 12/31/2019 Animal Exposure? Yes [email or web address] [id number] 15 Information not available 01/18/2011 Is Blood Transfusion Acceptable In An Emergency? Yes [id number] Information not available 12/31/2019 What Is Your Level Of Caffeine Consumption? Occasional [id number] Information not available 12/31/2019 What Type Of Diet Are You Following? REGULAR [id number] Information not available 12/31/2019 Education 10 15 Information not available 01/18/2011 What Is The Highest Grade Or Level Of School You Have Completed Or The Highest Degree You Have Received? [id number] Information not available 09/15/2021 Family History Of Heart Disease? Yes 15 Information not available 01/18/2011 Are There Any Guns Present In Your Home? No [id number] Information not available 12/31/2019 Which Of Your Hands Is Dominant? Right [id number] Information not available 12/31/2019 High Blood Pressure Yes 15 Information not available 01/18/2011 High Cholesterol Yes [email or web address] [id number] 15 Information not available 01/18/2011 Live Alone Or With Others? With Others 15 Information not available 01/18/2011 Marital Status Information not available 01/18/2011 What Was The Date Of Your Most Recent Tobacco Screening? 09/23/2022 Information not available 09/25/2022 How Many Children Do You Have? 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 Information not available 09/15/2021 Do You Use Your Seat Belt Or Car Seat Routinely? Yes [id number] Information not available 12/31/2019 Seat Belts Used Routinely Yes 15 Information not available 01/18/2011 Are You Sexually Active? Yes Information not available 09/25/2022 Do You Have Any Siblings? 2 Brothers Healthy [id number] Information not available 12/31/2019 Smoke Alarm In Home Yes 15 Information not available 01/18/2011 Are You Passively Exposed To Smoke? No 15 Information not available 01/18/2011 General Stress Level Medium 15 Information not available 01/18/2011 Do You Use Sunscreen Routinely? Yes [id number] Information not available 12/31/2019 Sex: Unknown Functional Status Question Answer Note LastModified by Organizat ion Details LastModified Time What is your level of alcohol consumption? 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 Occasional [id number] Information not available 12/31/2019 Mental Status None recorded. Family History Relationship Description Onset Age of this Age Resolved Age Notes LastModified by Organization Details LastModified Time Mother Dementia age 94 Not availabl e 06/11/2015 15:49:57 Mother Heart disease previo usly record ed as Heart Proble m Not available 06/11/2015 15:49:57 Father Heart disease cabg (previ ously record ed as Heart Proble m) Not available 06/11/2015 15:49:57 Father Blood coagulation disorder 91 previo usly record ed as Bleedi ng Disord ers Not available 06/11/2015 15:49:57 Brother Heart disease Not available 2015 15:49:57 Medical History Condition Response Coronary Artery Disease N Gout N Kidney Stones N Blood Diseases N Hyperthyroidism N Hypothyroidism N Depression N COPD N Developmental or Behavioral Disorders N Eczema, [...] high-dose, trivalent, PF 7 completed Not Available [facility] 03/23/2019 02:12:13 Influenza, high-dose, trivalent, PF 8 completed Not Available [facility] 03/23/2019 02:12:13 Influenza, high-dose, trivalent, PF 9 completed Not Available [facility] 03/23/2019 02:12:11 Influenza, high-dose, quadrivalent, PF 0 completed Not Available [facility] 11/15/2019 13:45:08 Influenza, split virus, quadrivalent, preservative 4 completed [facility] 02/04/2014 11:53:28 Influenza, high-dose, quadrivalent, PF 1 completed Not Available [facility] 12/04/2020 10:40:16 zoster live 4 completed Violetta Gramajo MD [address] [facility], [address] [address], [place], [address], [facility] 03/18/2014 12:07:44 Pneumococcal conjugate PCV 13 5 completed [facility] 04/25/2014 10:18:26 Influenza, high-dose, quadrivalent, PF 2 completed Violetta Gramajo MD [address] [facility], [address] [address], [place], [address], [facility] 12/26/2021 22:46:37 Influenza, high-dose, trivalent, PF 5 completed Not Available [facility] 04/06/2019 02:12:32 Influenza, high-dose, quadrivalent, PF 3 completed Violetta Gramajo MD [address] [facility], [address] [address], [place], [address], [facility] 11/29/2022 23:13:50 Tdap 2 completed Not Available [facility] 03/23/2019 02:12:10 Influenza, high-dose, trivalent, PF 6 completed Not Available [facility] 04/06/2019 02:12:33 COVID-19 vaccine, vector-nr, rS-Ad26, PF, 0.5 mL 1 completed Violetta Gramajo MD [address], [address] [place] [address], [place] - [facility] 09/13/2021 14:56:46 COVID-19 vaccine, vector-nr, rS-Ad26, PF, 0.5 mL 2 completed Violetta Gramajo MD [address] [address], [place] - [facility] 09/13/2021 14:57:00 pneumococcal polysaccharide PPV23 1 completed Violetta Gramajo MD [address] [place] [address], [address] [place] [address], [place] - [facility] 12/06/2012 10:28:55 Td (adult) 7 completed Violetta Gramajo MD [address], [address] [place] [address], [place] - [facility] 12/06/2012 10:28:55 Past Encounters Encounter ID Performer Location Encounter Start Date Encounter Closed Date Diagnosis/Indication Diagnosis SNOMED-CT Code Diagnosis ICD10 Code Diagnosis IMO Codes Diagnosis Note [id number] Jay Eldridge MD [facility] [address] [id number] 02/11/2011 09:43:29 02/11/2011 17:59:32 [id number] Violetta Gramajo MD [facility] [address] [id number] 05/27/2011 11:08:06 05/27/2011 13:45:27 [id number] Violetta Gramajo MD [address] [address] 10/10/2011 13:16:06 10/10/2011 15:07:02 [id number] Jay Eldridge MD [facility] [address] [id number] 11/01/2011 10:32:16 11/01/2011 15:32:50 [id number] Violetta Gramajo MD [facility] [address] [id number] 06/12/2012 10:16:49 06/12/2012 16:40:31 [id number] Violetta Gramajo MD [address] [id number] 08/24/2012 09:09:43 08/24/2012 17:11:15 [id number] Violetta Gramajo MD [facility] [address] [address] 12/06/2012 09:09:44 12/06/2012 10:42:32 Headache 76035144 Neck pain 69875336 [id number] Violetta Gramajo MD [address] [address] 05/10/2013 13:45:55 05/10/2013 16:22:13 Knee pain 27222141 Peripheral neuropathic pain 787991577 Benign ess ential hypertension 5801365 Gastroesop hageal reflux disease 359130304 Headache 04457017 Hyperlipidemia 26996695 Degenerati on of cervical intervertebral disc 46100335 Muscle pain 73111087 [id number] Violetta Gramajo MD [address] [address] 7 11/18/2013 13:28:55 11/18/2013 15:15:20 Adult health examination 478889059 Chest pain 09129456 Fatigue 19319289 Benign ess ential hypertension 3904501 Degenerati on of cervical intervertebral disc 63882346 Hyperlipidemia 30494953 Screening mammography 70695427 [id number] Violetta Gramajo MD [address] [address] 7 03/18/2014 10:18:17 03/18/2014 16:46:20 Urinary tract infectious disease 83550642 Bacterial vaginosis 057346202 Candidiasis of vagina 32873296 [id number] Violetta Gramajo MD [address] [address] 7 09/19/2014 14:06:00 09/19/2014 15:01:44 Acute bronchopneumonia 413386902 Fatigue 64463546 Headache 40936575 Wheezing 30255636 [id number] Violetta Gramajo MD [facility] [address] [address] 7 10/06/2014 14:15:26 10/06/2014 16:15:31 Urinary tract infectious disease 43741696 [id number] Violetta Gramajo MD [facility] [place] 1776961-116 7 01/13/2015 15:45:34 01/13/2015 17:15:50 Adult health examination 743149263 Z00.01 Degenerati on of cervical intervertebral disc 20520869 M50.30 Hyperlipidemia 98155426 E78.5 Headache 98976287 R51 Candidiasis of vagina 72 894327 B37.3 Urinary tr act infectious disease 73684232 N39.0 [id number] Violetta Gramajo MD [place] [address] 7 06/11/2015 14:19:51 06/11/2015 16:30:40 Stomatitis 61549472 K12.1 Gastroesop hageal reflux disease 792505284 K21.9 Breast lump 44143909 N63 [id number] Violetta Gramajo MD [place] [address] 7 09/28/2015 14:32:26 09/28/2015 17:26:16 Stomatitis 89044481 K12.1 Unstable knee 779029598 M25.369 [id number] Violetta Gramajo MD [place] [address] 7 02/04/2016 14:11:36 02/08/2016 08:39:13 Acute sciatica 143223114 M54.31 Upper resp iratory infection 83183221 J06.9 Cough 40779966 R05 Insomnia 059779266 G47.0 0 [id number] Violetta Gramajo MD [facility] [place] [address] 7 06/09/2016 09:54:25 06/09/2016 17:48:41 Sciatica 35779034 M54.31 Knee pain 87858741 M25.5 61 Osteoarthr itis of knee 124471720 M17.0 Allergic rhinitis 439278 04 J30.9 Acute sinusitis 39358107 J01.90 [id number] Violetta Gramajo MD [facility] [address] [place] [address] 7 06/13/2017 13:22:16 06/15/2017 08:31:39 Adult health examination 553343461 Z00.01 Essential hypertension 35917177 I10 Hyperlipidemia 07227968 E78.5 Persistent insomnia 1919 55741 G47.09 Chronic he adache disorder 650914575 G44.89 Screening mammography 24 495625 Z12.31 Chronic neck pain 462771 9406 107 M54.2 Depression screening 171 312517 Z13.89 Body mass index 25-29 - overweight 195281966 Z68.26 [id number] Violetta Gramajo MD [facility] [address] [address] 7 02/13/2018 15:29:02 02/14/2018 10:30:54 Cellulitis and abscess of breast 331252311 N61.1 Active or passive immunization 684675244 Z23 Chronic he adache disorder 908372000 G44.89 [id number] Violetta Gramajo MD [facility] [address] [address] 7 07/17/2018 09:27:17 07/19/2018 09:29:56 Adult health examination 507041134 Z00.01 Atypical chest pain 1025 12565 R07.89 Degenerati on of cervical intervertebral disc 19620136 M50.30 Glossitis 30938877 K14.0 Gastroesop hageal reflux disease 075468407 K21.9 Chronic constipation 236 918291 K59.09 she will borrow some of her daughter's Linzess. Screening mammography 24 314146 Z12.31 Body mass index 25-29 - overweight 615259168 Z68.25 Trochanter ic bursitis of right hip 2527913132 45101 M70.61 Essential hypertension 66122281 I10 Hyperlipidemia 79365347 E78.5 Persistent insomnia 1919 81580 G47.09 Chronic he adache disorder 585720180 G44.89 Chronic neck pain 834375 8869 107 M54.2 Depression screening 171 593194 Z13.89 [id number] Violetta Gramajo MD [facility] [address] [address] 7 10/09/2018 14:52:34 10/09/2018 16:56:25 Screening for malignant neoplasm of colon 961006575 Z12.11 [id number] Violetta Gramajo MD [facility] [address] [place] [address] 7 01/28/2019 09:50:08 02/03/2019 20:57:30 Active or passive immunization 689476015 Z23 Eczema 45952132 L30.9 Idiopathic peripheral neuropathy 69880543 G60.9 [id number] Violetta Gramajo MD [facility] [address] [place] [address] 7 07/12/2019 13:51:17 07/15/2019 08:32:37 Persistent insomnia 095646241 G47.09 Chronic neck pain 671969 9672 107 M54.2 [id number] Violetta Gramajo MD [facility] [address] [address] 7 08/08/2019 10:24:41 08/09/2019 08:13:49 Adult health examination 970503377 Z00.01 Degenerati on of cervical intervertebral disc 10566042 M50.30 Glossitis 22449127 K14.0 Gastroesop hageal reflux disease 607942779 K21.9 Chronic constipation 236 607205 K59.09 she will borrow some of her daughter's Linzess. Trochanter ic bursitis of right hip 9758811768 91552 M70.61 Essential hypertension 11338960 I10 Hyperlipidemia 29398537 E78.5 Persistent insomnia 1919 04732 G47.09 Chronic he adache disorder 474755523 G44.89 Chronic neck pain 165918 3444 107 M54.2 Depression screening 171 450720 Z13.89 Dyspnea on exertion 6084 5006 R06.09 Restrictiv e lung disease 37880535 J98.4 Chronic ob structive pulmonary disease 82827737 J44.9 Body mass index 20-24 - normal 488942582 Z68.24 [id number] Violetta Gramajo MD [facility] [address] [address] 7 01/17/2020 09:56:28 01/19/2020 20:15:26 Hyperlipidemia 43578798 E78.5 Trigger fi nger of right hand 3269478691 8579455 M65.30 we are providing a finger splint for her to use at night. Thyroid fu nction tests abnormal 164806108 R94.6 Unintentio nal weight loss 208295553 R63.4 Hyperthyroidism 97379740 E05.90 [id number] Violetta Gramajo MD [facility] [address] [place] [address] 7 06/29/2020 10:01:27 06/30/2020 08:44:29 Trigger finger of right hand 3436343160 7560386 M65.30 Chronic ne ck pain for greater than 3 months 8489013262 58088 M54.2 Screening mammography 24 151188 Z12.31 Hyperthyroidism 39855455 E05.90 [id number] Violetta Gramajo MD [facility] [place] 1776961-116 7 06/11/2021 14:45:19 06/14/2021 08:50:38 Chronic neck pain for greater than 3 months 8190411106 86814 M54.2 Essential hypertension 70245763 I10 Gastroesop hageal reflux disease 066140505 K21.9 [id number] Violetta Gramajo MD [facility] [place] [address] 7 07/01/2021 14:14:54 07/05/2021 07:50:48 Chest wall pain 212790870 R07.89 Fatigue 87230735 R53.83 Hyperlipidemia 07130250 E78.5 Subclinica l hyperthyroidism 302607709 E05.90 Essential hypertension 05236522 I10 [id number] Violetta Gramajo MD [facility] [address] [place] [address] 7 07/06/2021 14:42:59 07/13/2021 08:34:47 Hyperthyroidism 50294636 E05.90 Chest wall pain 07920381 6 R07.89 Hyperlipidemia 47254996 E78.5 Subclinica l hyperthyroidism 486933954 E05.90 Essential hypertension 78325988 I10 [id number] Violetta Gramajo MD [facility] [address] [address] 7 09/13/2021 13:55:39 09/16/2021 08:11:45 Adult health examination 631853357 Z00.01 Degenerati on of cervical intervertebral disc 93829797 M50.30 Gastroesop hageal reflux disease 052888793 K21.9 Chronic constipation 236 889774 K59.09 Improved Essential hypertension 57054206 I10 Hyperlipidemia 88949721 E78.5 Chronic he adache disorder 057584357 G44.89 Chronic neck pain 913370 8538 107 M54.2 Depression screening 171 414692 Z13.89 Dyspnea on exertion 6084 5006 R06.09 Restrictiv e lung disease 07641183 J98.4 Body mass index 25-29 - overweight 980668319 Z68.25 Skin lesion 12081797 L98 .9 rough area on the left ear [id number] Violetta Gramajo MD [facility] [address] [place] [address] 7 12/24/2021 14:06:17 12/27/2021 08:44:17 Acute low back pain 118051364 M54.50 Administra tion of influenza vaccine 29795415 Z23 [id number] Violetta Gramajo MD [facility] [address] [address] 7 04/15/2022 09:55:24 04/18/2022 09:09:29 Increased frequency of urination 409752862 R35.0 Urinary tr act infectious disease 60236935 N39.0 Hyperthyroidism 74119205 E05.90 Essential hypertension 21254656 I10 [id number] Violetta Gramajo MD [facility] [address] [address] 7 09/23/2022 13:25:38 09/26/2022 08:37:51 Adult health examination 005035684 Z00.01 Degenerati on of cervical intervertebral disc 06289971 M50.30 Gastroesop hageal reflux disease 968862542 K21.9 Chronic constipation 236 149777 K59.09 Improved with metamucil gummies Essential hypertension 95717252 I10 Hyperlipidemia 79530737 E78.5 Chronic he adache disorder 283625229 G44.89 Chronic neck pain 525295 3708 107 M54.2 Depression screening 171 134235 Z13.89 Dyspnea on exertion 6084 5006 R06.09 Restrictiv e lung disease 19099843 J98.4 Body mass index 25-29 - overweight 173050004 Z68.25 Osteoarthr itis of knee 191188376 M17.0 Degenerati on of lumbar intervertebral disc 92882944 M51.36 Immunization advised 310 133329 Z71.9 [id number] Violetta Gramajo MD [facility] [address] [facility], [address] [place] [address] 11/28/2022 14:48:09 12/01/2022 09:19:24 Chronic neck pain for greater than 3 months 8902504313 02235 M54.2 Administra tion of influenza vaccine 64337103 Z23 Health Concerns Section Related Observation LastModified by Organization Detai ls LastModified Time None Recorded Concern Status LastModified by Organization Details LastModified Time None Recorded Advance Directives Directive N: Payers Insurance Date Sequence Insurance Name Policy Number Policy Quintero Covered Member ID Quintero Member ID Guarantor Name 11/28/2022 1 [employer] (PPO) Summersally Gandara [id number] Summer Gandara 11/28/2022 1 [employer] (MEDICARE REPLACEMENT/AD VANTAGE - PPO) Summermarychuy Gandara [id number] Summer Gandara 11/28/2022 1 [place]MEDICARE REPLACEMENT HMO) [id number] Summer Gandara [id number] Summer Gandara Notes Date Note Type Note Provider Name and Address Organization Details Recorded Time 09/13/2021 text/html she stays busy and get up at 6;30, Fixes her coffee; [...] in the mornings. Violetta Gramajo MD [address] [facility], [facility] [address], [place], [address], [facility] 09/15/2021 16:47:04 [...] she quit going. Violetta Gramajo MD [address] [facility], [place] [address], [place], [address], [facility] 12/26/2021 22:49:09 04/15/2022 text/html she has done very well with the metamucil gummies and that [...] of Methimazole daily. Violetta Gramajo MD [address] [facility], [facility] [address], [place], [address], [facility] 04/16/2022 21:24:37 09/23/2022 text/html her worst thing is pain in the right side of the upper back and chest and she had a negative cardiac work up/ Her skin in those area feels sensitive and sore as well. Now she is also having more trouble with right sciatica symptoms as well and riding her zero turn sand digger seems to flare that and also makes [...] a lightening strike. Violetta Gramajo MD [address] [facility], [address], [place], [address], [facility] 09/25/2022 08:58:40 11/28/2022 text/html she is having pain between her shoulder blades and it goes through to her chest. It hurts but not as severe as this morning. When she gets up she has to sit on side of bed as the pain is worse on the right side of her back. She had a neck injection about 2 weeks ago in [place] in right posterior shoulder but it did [...] that frustrates her. Violetta Gramajo MD [address] [facility], [address], [place], [address], [facility] 11/29/2022 23:21:58 OBGyn Episode Ob Episode Information Episode Created Date Number of Fetuses Patient Bloodtype Patient rh Status Prepregnancy Weight lbs Domestic Partner Domestic Partner Phone Father Name Entertainer & Comic Status 11/10/19 11 1 CLOSED Fetus Data [...] Domestic Partner Domestic Partner Phone Father Name Entertainer & Comic Status 11/10/19 11 1 CLOSED Fetus Data [...] Domestic Partner Domestic Partner Phone Father Name Entertainer & Comic Status 11/10/19 11 1 CLOSED Fetus Data [...]
== END 2024-12-09 23:59 | disposition home or self-care (01) ==
LOC: LAB 11:39
PROVIDERS: PCP Family Medicine; Visit Provider Student in an Organized Health Care Education/Training Program
DX: E05.90 Thyrotoxicosis, unspecified without thyrotoxic crisis or storm (principal)
CPT/HCPCS: 36415; 83520; 84445

== ENCOUNTER 2024-12-10 10:25 | Outpatient (CLI) | payer MEDICARE, SELFPAY ==
--- OUTSIDE RECORDS SUMMARY | 2024-12-10 10:28 | XMS_ITS | Clinical Summary ---
Author Organization [facility] Address [address] [place] [address] Care Team Providers Care Estate Planning Attorney Name Role Phone Violetta Gramajo MD Primary [...] Pneumococcal Vaccine 50+ Completed 03/18/2014, 08/2010 Insurance [facility] Care Teams Estate Planning Attorney Relationship Specialty Start Date End Date Violetta Gramajo MD [address] [place] [id number] PCP - General Family Medicine 07/08/22
--- NOTE | 2024-12-10 11:00 | US_ITS ---
FINAL REPORT TECHNIQUE: Sonographic images of the thyroid gland were obtained in the longitudinal and transverse planes. CLINICAL HISTORY: enlarged thyroid FINDINGS: The right lobe measures 1.1 x 3.6 x 1.1 cm. Right lobe is mildly hyperemic. There are no cystic or solid nodules. The left lobe measures 1.2 x 4.7 x 1.6 cm. Left lobe is mildly hyperemic. There is a small, subcentimeter mixed cystic and solid nodule, TR 3. The isthmus measures 5 mm. This is normal. IMPRESSION: TIRADS category 3 nodule left lobe. Based on size, there are no current recommendations regarding follow up. Mild thyroid gland hyperemia. Recommend clinical correlation for thyroiditis. Reviewed, Interpreted and Dictated by Daisy Gabriel MD Transcribed by Lisset Pierre Authenticated and [facility]
== END 2024-12-10 23:59 | disposition home or self-care (01) ==
LOC: RAD 10:27
PROVIDERS: PCP Family Medicine; Visit Provider Family Medicine
DX: E05.20 Thyrotoxicosis with toxic multinodular goiter without thyrotoxic crisis or storm (principal); R68.89 Other general symptoms and signs
CPT/HCPCS: 76536

== ENCOUNTER 2024-12-20 10:39 | Outpatient (CLI) | payer MEDICARE, SELFPAY ==
--- OUTSIDE RECORDS SUMMARY | 2024-12-20 10:45 | XMS_ITS ---
Laboratory report Created on: December 13, 2024 JORDAN JUNE : 1935 Sex: Female Author Organization Unknown PROBLEMS Problems List Code Description RESULTS Laboratory Orders Date Order Code Test 2024-12-09 [id number] THYROTROPIN RECE PTOR AB, SERUM 2024-12-09 [id number] THYROID STIM IMM UNOGLOBULIN Laboratory Results Date LOINC Test Value Unit Reference Range Interpre tation 2024-12-09 [id number] THYROTROPIN RECE PTOR AB, SERUM 5 IU/L 0.00-1.75 H 2024-12-09 [id number] THYROID STIM IMMUNOGLOBULIN <0.10 IU/L 0.00-0.55
--- OUTSIDE RECORDS SUMMARY | 2024-12-20 10:45 | XMS_ITS | Data Portability ---
Author Organization [place] - [facility] - [facility] & SONA Rojas ADMIN Address [address] [place] [address] Assessment Encounter Date Assessment Date Assessment LastModified by Organization Details LastModified Time 10/24/2022 10/24/2022 This is a 87 yea r old female referred to [facility] by Dr. Gramajo for management of [...] latissimus dorsi * Schedule: Left GTB injection ([place]) if the problem persists after the TPI injection * Follow Up: Post procedures ([place]) -------- I have discussed in great detail [...] __ __ __ __ __ _ MACKENZIE: [id number] I have reviewed patient's MACKENZIE report prior to prescribing Schedule II, III, and IV medications that require review by law.. [email or web address] Not available 10/26/2022 08:39:12 11/29/2022 11/29/2022 This is a 87 yea r old female referred to [facility] by Dr. Gramajo for management of [...] __ __ __ __ __ _ MACKENZIE: [id number] I have reviewed patient's MACKENZIE report prior to prescribing Schedule II, III, and IV medications that require review by law.. [email or web address] Not available 11/29/2022 11:03:48 Plan of Treatment Reminders Order Date Submit Date Provider Last Modified By Organization Details Last Modified Time Details Appointments None recorded. Lab None recorded. Referral None recorded. Procedures injection , trigger point (PROC) - , 29139; Right latissimu s dorsi, rhomboid, levator scapulae [email or web address] MD, [address], [address], [place], [address], 3 14:32:31 arthrocen tesis, aspiratio n and/or injection , major joint or bursa (PROC) - , , left greater trochante r bursa [email or web address] MD, [address], [facility] [address], [place], [address], 3 11:29:06 Surgeries None recorded. Imaging XR, lumbar spine 2022 023 [facility] (Registration ), [address] [place], [address], 3 11:17:06 XR, thoracic spine 2022 023 [facility] (Registration ), [address] [place], [address], 3 11:17:06 XR, cervical spine 2022 023 [facility] (Registration ), [address] [place], [address], 3 11:17:06 Medication Orders None recorded. Patient TargetsNo targets recorded. Patient InstructionsNo instructions recorded. Reason for Referral None Reported. Results Created Date Observation Date Name Description Value Unit Range Abnormal Flag Note LastModifiedBy Organization Detail LastModifiedTime 11/30/1909/27/2013 CT, cervi steve spine , w/o contr ast No observ ation record ed. [email or web address] Not Available 11/29 09:55:12 11/30/1911/29/2022 XR, thora cic spine , 2 view [facility] [address] [place] [address] Phone: Fax: Name: JENNIFER GANDARA Exam Date: : 1934 Age 87 Gender : F Access ion: [id number] Physic james: ELIANE MASCORRO Facili ty: [facility] Facili ty HSV: Outpat ient Exam: THORAC [...] you for referr ing JENNIFER GANDARA to [facility]. Legall y authen ticate d by POPE ANDREW Nieves 11-29 13:03: 50 CC'ed Logic: Orderi ng Provid er: SEGUNDO DEL RIO Attend ing Provid er: SEGUNDO DEL RIO Admitt ing Provid er: SEGUNDO [email or web address] [place] [address] - Physical Therapy [address] [facility], [place], [address], 12/01/2022 09:20:15 11/30/19 23 11/29/2022 lumba r spine 2 to 3V [facility] [address] [place] [address] Phone: Fax: Name: JENNIFER GANDARA Exam Date: 023 : 1934 Age 87 Gender : F Access ion: [id number] Physic james: ELIANE MASCORRO Facili ty: [facility] Facili ty HSV: Outpat ient Exam: [...] [facility] Leg[facility] y authen ticate d by POPE ANDREW Nieves 11-29 13:04: 32 CC'ed Logic: Orderi ng Provid er: SEGUNDO DEL RIO Attend ing Provid er: SEGUNDO DEL RIO Admitt ing Provid er: SEGUNDO DEL RIO [email or web address] [place] [address] - Physical Therapy [address] [facility], [place], [address], 12/01/2022 09:20:15 11/30/19 23 11/29/2022 cervi steve spine 2 to 3V [facility] [address] [place] [address] Phone: Fax: Name: JENNIFER GANDARA Exam Date: : 1934 Age 87 Gender : F Access ion: [id number] Physic james: ELIANE MASCORRO Facili ty: [facility] Facili ty HSV: Outpat ient Exam: CERVIC [...] Thank you for referr JENNIFER Hodges to [facility]. Legall y authen ticate d by POPE ANDREW Nieves 0 11-29 13:05: 09 CC'ed Logic: Orderi ng Provid er: SEGUNDO DEL RIO Attend ing Provid er: SEGUNDO DEL RIO Admitt ing Provid er: SEGUNDO DEL RIO [email or web address] [place] [address] - Physical Therapy [address] [place] [address], [address], 12/01/2022 09:20:15 Result Notes Documentation Provider Name and Address Organization Details Recorded Time Xr, Thoracic Spine, 2 View : [facility] [address] [place] [address] Name: SUMMER GANDARA Exam Date: 11/29/2022 : 1935 Age 87 Gender: F Physician: ELIANE LANE Facility: [facility] Facility HSV: Outpatient Exam: THORACIC SPINE 2V [...] Thank you for referring SUMMER GANDARA to [facility]. Legally authenticated by POPE ANDREW Nieves 2022-11-29 13:03:50 CC'ed Logic: Ordering Provider: CASANDRA DEL RIO Attending Provider: CASANDRA DEL RIO Admitting Provider: LENORE ALBARRAN [address] [facility], [place], [address], [place] - [facility] & [place] 12/01/2022 09:20:15 Problems Name Problem SNOMED Code Status Onset Date Resolution Date Notes Provider Name and Address Organization Details Recorded Time Spinal enthesopath y 14064515 Active 2022 [place], [place] - [facility] & [place] 3 09:59:27 Trochanteri c bursitis of left hip 9108695713415 03 Active 2022 [place], [place] - [facility] - [place] & [place] 3 09:59:27 Radicular pain 40033013 Active 2022 [place], [place] - [facility] - [place] & [place] 3 09:59:27 Myofascial pain 922945636 Active 2022 [place], [place] - [facility] - [place] & [place] 3 09:59:27 Notes:Some problems listed i n Documents: #[id number], #[id number] could not be added to this patient's chart. Please review these documents and add these problems to the patient's chart manually as needed. Problem Notes None recorded. Procedures Surgical History Date Name Laterality Status Provider Name and Address Organization Details Recorded Time 3 Injection Only completed Alma Billy [place] - [facility] - [place] & [place] 11/14/2022 10:30:52 Imaging Results None recorded. Procedure [...] Address Organization Details Last Updated DateTime 3 15848.2 8 g 97.5 [degF] 92 % 92 % 55 /min 138/72 mm[Hg] Janie Bell [facility] & [place] 3 14:25:22 Date Recorded Body weight Body temperature Oxygen saturation Oxygen saturation in Arterial blood by Pulse oximetry Heart rate Systolic And Diastolic Provider Name and Address Organization Details Last Updated DateTime 3 83941.0 8 g 96.9 [degF] 99 % 99 % 55 /min 132/63 mm[Hg] Liliane Claire [place] - [facility] & [place] 3 09:59:45 Social History None recorded. Functional Status Question Answer Note LastModified by Organization D etails LastModified Time Do you or have you ever used any other forms of tobacco or nicotine? No Information not available 10/24/2022 Mental Status None recorded. Family History Nothing Reported. Medical History No medical history recorded. Gynecological HistoryNo gynecological history recorded. Obstetrics History GPAL:G 0 P 0 0 0 0 Past Encounters Encounter ID Performer Location Encounter Start Date Encounter Closed Date Diagnosis/Indication Diagnosis SNOMED-CT Code Diagnosis ICD10 Code Diagnosis IMO Codes Diagnosis Note [id number] Eliane Lane MD [facility]-[address] [place] [address] 10/24/2022 12:57:12 10/24/2022 14:30:58 Trochanteric bursitis of left hip 3013824738 63311 M70.62 Spinal enthesopathy 1031 7009 M46.00 M46.03 Radicular pain 83484823 M54.10 Myofascial pain 96860421 [id number] MD [facility] [address] [address] 11/14/2022 09:58:13 11/14/2022 10:34:07 Spinal enthesopathy 96856500 M46.[id number] MD [facility] [address] [address] 11/29/2022 09:39:25 11/29/2022 12:05:47 Trochanteric bursitis of left hip 2126500464 85218 M70.62 Spinal enthesopathy 1031 7009 M46.00 M46.03 Radicular pain 61825262 M54.10 Myofascial pain 97332246 9 M79.10 Pain in ce rvical spine 725388118 M54.2 Thoracic back pain 92013 8004 M54.6 Low back pain 370776096 M54.50 Health Concerns Section Related Observation LastModified by Organization Detai ls LastModified Time None Recorded Concern Status LastModified by Organization Details LastModified Time None Recorded Advance Directives Directive None Recorded Payers Insurance Date Sequence Insurance Name Policy Number Policy Quintero Covered Member ID Quintero Member ID Guarantor Name 09/23/2023 1 [place]MEDIC[place]PLACEMENT HMO) [id number] Summer Gandara [id number] Summer Gandara Notes Date Note Type Note Provider Name and Address Organization Details Recorded Time 3 text/html ROS as noted in the HPI This is a 87 year old female referred to [facility] by Dr. Gramajo for management of [...] Has not done PT. Previously went to [facility] for about 2 years, who sent her to [facility] of which she had 2 injections (for he radicular to the RLE). Did not help the pain. Eliane Lane MD [address], [place], [address], [facility] 10/26/2022 08:39:19 3 text/html ROS as noted in the HPI Eliane Lane MD [address], [place], [address], [place] - [facility] & [place] 11/14/2022 10:57:24 3 text/html ROS as noted in the HPI This is a 87 year old female referred to [facility] by Dr. Gramajo for management of [...] N/A Eliane Lane MD [address], [place], [address], [place] - [facility] - [place] & [place] 11/30/2022 15:32:59 OBGyn Episode No OBEpisode recorded.
--- OUTSIDE RECORDS SUMMARY | 2024-12-20 10:45 | XMS_ITS | Clinical Summary ---
Author Organization [facility] Address [address] [place] [address] Care Team Providers Care Skin Piler Name Role Phone Violetta Gramajo MD Primary [...] Pneumococcal Vaccine 50+ Completed 03/18/2014, 08/2010 Insurance [facility] MED[facility] Care Teams Skin Piler Relationship Specialty Start Date End Date Violetta Gramajo MD [address] [place] [address] PCP - General Family Medicine 07/08/22
--- OUTSIDE RECORDS SUMMARY | 2024-12-20 10:46 | XMS_ITS | Data Portability ---
Author Organization [facility], [facility] Address [address] [place] [address] Assessment Encounter Date Assessment Date Assessment LastModified [...] external ear and we recommend the local cargo router group that visit [place] weekly. She does have chronic neck pain with known significant degenerative disc disease and arthritis. She did have some physical therapy for this two years ago that helped marginally. She apparently has been seeing an orthopedist in [place] who has tried some back injections but [...] apparently had been seeing an orthopedist in [place] who tried some back injections but we [...] None recorded. Lab culture, urine 2022 023 [facility], [address] [place], [address], 3 06:24:37 urinalysis, dipstick 2022 023 [facility], [address] [place], [address], 3 10:20:06 Referral pain management referral [address], [address], [place], [address], 3 15:35:01 pain management referral [address], [address] , [address], [place], [address], 3 15:35:[address] referral - lesion on left ear 2021 022 [facility], [address], [place], [address], 2 15:36:16 Procedures None recorded. Surgeries None recorded. Imaging None recorded. Medication Orders gabapentin 300 mg capsule 2022 023 [facility][id number], [address], [place], [place], [id number], 3 16:34:08 diclofenac 1 % topical gel 2022 023 [facility], [address], [place], [place], [id number], 3 14:49:07 omeprazole 20 mg capsule,del ayed release 2022 023 [facility] #43903, [address], [place], [id number], 3 14:49:08 nitrofurant oin monohydrate /macrocryst als 100 mg capsule 2022 023 [facility] #38928, [address] [place], [id number], 3 14:28:01 dexamethaso ne sodium phosphate 4 mg/mL injection solution [address] [facility] #59993, [address] [place], [id number], 3 10:17:44 methylpredn isolone 4 mg tablets in a dose pack [address] [facility] #17624, [address] [place], [id number], 3 10:17:54 tramadol 50 mg tablet 2021 022 [facility], [address] [place], [id number], 3 14:28:13 Patient TargetsNo targets recorded. Patient Instructions Encounter Date Encounter Id Patient Instructions Last Modified By Organization Details Last Modified Time 09/13/2021 [id number] neck pain: care instructions Not available 09/13/2021 15:13:15 neck arthritis: exercises Not available 09/13/2021 15:13:15 12/24/2021 [id number] acute low back pain: exercises Not available 12/24/2021 15:12:17 low back pain: exercises Not available 12/24/2021 15:12:17 09/23/2022 [id number] neck pain: care instructions Not available 09/23/2022 14:49:01 neck arthritis: exercises Not available 09/23/2022 14:49:01 Tdap (tetanus, diphtheria, pertussis) vaccine: what you need to know Not available 09/23/2022 14:49:01 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 Referral for S kin lesion lesion on left ear Referring Physician: Violetta Gramajo [facility], Encounter Date: 09/13/2021 Pain Management Referral for Degeneration of lumbar intervertebral disc Referring Physician: Violetta Gramajo [facility], Encounter Date: 09/23/2022 Pain Management Referral for Degeneration of cervical intervertebral disc Referring Physician: Violetta Gramajo [facility], Encounter Date: 09/23/2022 Results Created Date Observation Date Name Description Value Unit Range Abnormal Flag Note LastModifiedBy Organization Detail LastModifiedTime 01/01/2012/31/2021 CBC AUTO W DIFF WBC 16.1 10 4.5-11 .5 high Not Available [facility] (Lab Registration) [address] [place], [address], 12/31/2021 08:42:52 01/01/2012/31/2021 CBC AUTO W DIFF RBC 4.14 10 4.25-5 .57 low Not Available [facility] (Lab Registration) [address] [place], [id number], 12/31/2021 08:42:52 01/01/2012/31/2021 CBC AUTO W DIFF HGB 13.0 g/dL 12.0-1 5.7 Not Available [facility] (Lab Registration) [address] [place], [id number], 12/31/2021 08:42:52 01/01/2012/31/2021 CBC AUTO W DIFF HCT 39.8 % 36.0-4 7.0 Not Available [facility] (Lab Registration) [address] [place], [id number], 12/31/2021 08:42:52 01/01/2012/31/2021 CBC AUTO W DIFF MCV 96.1 fL 80-95 high Not Available [facility] (Lab Registration) [address] [place], [address], 12/31/2021 08:42:52 01/01/20 22 12/31/2021 CBC AUTO W DIFF MCH 31.4 pg 27.0-3 4.0 Not Available [facility] (Lab Registration) [address] [place], [address], 12/31/2021 08:42:52 01/01/2012/31/2021 CBC AUTO W DIFF MCHC 32.7 g/dL 32.0-3 6.0 Not Available [facility] (Lab Registration) [address] [place], [address], 12/31/2021 08:42:52 01/01/2012/31/2021 CBC AUTO W DIFF platelet count 189 10 150-45 0 Not Available [facility] (Lab Registration) [address] [place], [address], 12/31/2021 08:42:52 01/01/2012/31/2021 CBC AUTO W DIFF RDW 12.5 % 12.3-1 5.1 Not Available [facility] (Lab Registration) [address] [place], [address], 12/31/2021 08:42:52 01/01/2012/31/2021 CBC AUTO W DIFF MPV 11.4 fL 7.4-10 .4 high Not Available [facility] (Lab Registration) [address] [place], [address], 12/31/2021 08:42:52 01/01/20 22 12/31/2021 CBC AUTO W DIFF granulocyte% 80.2 % 40-75 high Not Available [facility] (Lab Registration) [address] [place], [address], 12/31/2021 08:42:52 01/01/2012/31/2021 CBC AUTO W DIFF lymphocyte% 12.1 % 15-57 low Not Available [facility] (Lab Registration) [address] [place], [id number], 12/31/2021 08:42:52 01/01/2012/31/2021 CBC AUTO W DIFF monocyte% 5.9 % 4.0-12 .0 Not Available [facility] (Lab Registration) [address] [place], [address], 12/31/2021 08:42:52 01/01/2012/31/2021 CBC AUTO W DIFF eosinophil% 0.8 % 0.0-4. 0 Not Available [facility] (Lab Registration) [address] [place], [address], 12/31/2021 08:42:52 01/01/2012/31/2021 CBC AUTO W DIFF basophil% 0.2 % 0.0-1. 0 Not Available [facility] (Lab Registration) [address] [place], [id number], 12/31/2021 08:42:52 01/01/2012/31/2021 CBC AUTO W DIFF immature granulocytes % 0.8 % 0.0-0. 8 Not Available [facility] (Lab Registration) [address] [place], [id number], 12/31/2021 08:42:52 01/01/2012/31/2021 CBC AUTO W DIFF granulocyte# 12.90 10 Not Available [facility] (Lab Registration) [address] [place], [id number], 12/31/2021 08:42:52 01/01/2012/31/2021 CBC AUTO W DIFF lymphocyte# 1.95 10 Not Available [facility] (Lab Registration) [address] [place], [id number], 12/31/2021 08:42:52 01/01/2012/31/2021 CBC AUTO W DIFF monocyte# 0.95 10 Not Available [facility] (Lab Registration) [address] [place], [id number], 12/31/2021 08:42:52 01/01/20 22 12/31/2021 CBC AUTO W DIFF eosinophil# 0.13 10 Not Available [facility] (Lab Registration) [address] [place], [address], 12/31/2021 08:42:52 01/01/20 22 12/31/2021 CBC AUTO W DIFF basophil# 0.04 10 Not Available [facility] (Lab Registration) [address] [place], [address], 12/31/2021 08:42:52 01/01/20 22 12/31/2021 CBC AUTO W DIFF immature granulocytes # 0.13 10 Not Available [facility] (Lab Registration) [address] [place], [address], 12/31/2021 08:42:52 01/01/2012/31/2021 CBC AUTO W DIFF manual differential NO Not Available [facility] (Lab Registration) [address] [place], [address], 12/31/2021 08:42:52 01/01/2012/31/2021 CBC AUTO W DIFF note Unles s other mills noted testi ng perfo rmed at: [facility] [address] [place] [address] [phone] Juan zavala MD CLIA: [id number] Not Available [facility] (Lab Registration) [address] [place], [id number], 12/31/2021 08:42:52 01/01/20 22 12/31/2021 BASIC METAB OLIC PANEL sodium 136 mmol/ L 136-14 5 Not Available [facility] (Lab Registration) [address] [place], [address], 12/31/2021 08:51:55 01/01/2012/31/2021 BASIC METAB OLIC PANEL potassium 3.8 mmol/ L 3.5-5. 1 Not Available [facility] (Lab Registration) [address] [place], [address], 12/31/2021 08:51:55 01/01/2012/31/2021 BASIC METAB OLIC PANEL chloride 102 mmol/ L 98-107 Not Available [facility] (Lab Registration) [address] [place], [address], 12/31/2021 08:51:55 01/01/2012/31/2021 BASIC METAB OLIC PANEL carbon dioxide 31 mmol/ L 21-32 Not Available [facility] (Lab Registration) [address] [place], [address], 12/31/2021 08:51:55 01/01/2012/31/2021 BASIC METAB OLIC PANEL anion gap 3.0 Not Available [facility] (Lab Registration) [address] [place], [address], 12/31/2021 08:51:55 01/01/2012/31/2021 BASIC METAB OLIC PANEL glucose 101 mg/dL 70-110 Not Available [facility] (Lab Registration) [address] [place], [address], 12/31/2021 08:51:55 01/01/2012/31/2021 BASIC METAB OLIC PANEL blood urea nitrogen 12 mg/dL 7-18 Not Available [facility] (Lab Registration) [address] [place], [address], 12/31/2021 08:51:55 01/01/2012/31/2021 BASIC METAB OLIC PANEL creatinine 0.9 mg/dL 0.6-1. 0 Not Available [facility] (Lab Registration) [address] [place], [address], 12/31/2021 08:51:55 01/01/2012/31/2021 BASIC METAB OLIC PANEL BUN/creatini ne ratio 13.3 ratio 9-21 Not Available [facility] (Lab Registration) [address], [place], [address], 12/31/2021 08:51:55 01/01/2012/31/2021 BASIC METAB OLIC PANEL estimated glom filtration rate 63 mL/mi n >60- Not Available [facility] (Lab Registration) [address] [place], [address], 12/31/2021 08:51:55 01/01/2012/31/2021 BASIC METAB OLIC PANEL calcium 9.5 mg/dL 8.5-10 .1 Not Available [facility] (Lab Registration) [address] [place], [address], 12/31/2021 08:51:55 01/01/2012/31/2021 BASIC METAB OLIC PANEL note Unles s other mills noted testi ng perfo rmed at: [facility] [address] [place] [address] [phone] Juan zavala MD CLIA: [id number] Not Available [facility] (Lab Registration) [address] [place], [address], 12/31/2021 08:51:55 01/01/2012/31/2021 UA W MICRO AUTO color yellow yellow Not Available [facility] (Lab Registration) [address] [place], [address], 12/31/2021 08:55:12 01/01/20 22 12/31/2021 UA W MICRO AUTO appearance cloudy clear Not Available [facility] (Lab Registration) [address] [place], [address], 12/31/2021 08:55:12 01/01/2012/31/2021 UA W MICRO AUTO glucose NORM normal Not Available [facility] (Lab Registration) [address] [place], [address], 12/31/2021 08:55:12 01/01/2012/31/2021 UA W MICRO AUTO bilirubin NEGATI VE negati ve Not Available [facility] (Lab Registration) [address] [place], [address], 12/31/2021 08:55:12 01/01/2012/31/2021 UA W MICRO AUTO ketone NEGATI VE mg/dL negati ve Not Available [facility] (Lab Registration) [address] [place], [address], 12/31/2021 08:55:12 01/01/2012/31/2021 UA W MICRO AUTO specific gravity 1.010 1.005- 1.035 Not Available [facility] (Lab Registration) [address] [place], [address], 12/31/2021 08:55:12 01/01/2012/31/2021 UA W MICRO AUTO blood NEGATI VE /mcL negati ve Not Available [facility] (Lab Registration) [address] [place], [address], 12/31/2021 08:55:12 01/01/2012/31/2021 UA W MICRO AUTO pH 7.00 5.0-7. 5 Not Available [facility] (Lab Registration) [address] [place], [address], 12/31/2021 08:55:12 01/01/2012/31/2021 UA W MICRO AUTO protein NEGATI VE mg/dL negati ve Not Available [facility] (Lab Registration) [address] [place], [address], 12/31/2021 08:55:12 01/01/20 22 12/31/2021 UA W MICRO AUTO urobilnogen NORM mg/dL normal Not Available [facility] (Lab Registration) [address] [place], [address], 12/31/2021 08:55:12 01/01/2012/31/2021 UA W MICRO AUTO nitrite POSITI VE negati ve delta Not Available [facility] (Lab Registration) [address] [place], [address], 12/31/2021 08:55:12 01/01/2012/31/2021 UA W MICRO AUTO leukocyte esterase 500 (2+) /mcL negati ve Not Available [facility] (Lab Registration) [address] [place], [address], 12/31/2021 08:55:12 01/01/2012/31/2021 UA W MICRO AUTO culture? YES Not Available [facility] (Lab Registration) [address] [place], [address], 12/31/2021 08:55:12 01/01/2012/31/2021 UA W MICRO AUTO RBC 0-3 0-3 Not Available [facility] (Lab Registration) [address] [place], [address], 12/31/2021 08:55:12 01/01/2012/31/2021 UA W MICRO AUTO WBC 5-10 none seen Not Available [facility] (Lab Registration) [address] [place], [address], 12/31/2021 08:55:12 01/01/2012/31/2021 UA W MICRO AUTO epithelial cell 1-5 none seen Not Available [facility] (Lab Registration) [address] [place], [address], 12/31/2021 08:55:12 01/01/20 22 12/31/2021 UA W MICRO AUTO bacteria 4+ none seen Not Available [facility] (Lab Registration) [address] [place], [address], 12/31/2021 08:55:12 01/01/20 22 12/31/2021 UA W MICRO AUTO note Unles s other mills noted testi ng perfo rmed at: [facility] [address] [place] [address] [phone] Juan zavala MD CLIA: [id number] Not Available [facility] (Lab Registration) [address] [facility] [place], [address], 12/31/2021 08:55:12 01/01/20 22 12/31/2021 CULTU RE URINE culccur ===== ===== ===== ===== ===== ===== ===== ===== ===== ===== ===== ===== ===== ===== ===== ===== ===== ===== ===== ===== ===== ===== ===== ===== Speci men NO.: [id number] Exam Statu s: Final Proce dure: [...] L Gram Negat alexus Rods Not Available [facility] (Lab Registration) [address] , [place], [address], 01/02/2022 07:07:26 01/01/20 22 12/31/2021 CULTU RE URINE note Unles s other mills noted testi ng perfo rmed at: [facility] [address] [place] [address] [phone] Juan zavala MD CLIA: [id number] Not Available [facility] (Lab Registration) [address] , [place], [address], 01/02/2022 07:07:26 04/11/19 23 04/12/2022 TSH TSH 3.39 mIU/L 0.40-4 .50 normal Not Available [facility] [address] [facility], [place], [address], 04/12/2022 07:40:39 04/11/19 23 04/12/2022 T4 (THYR OXINE ), TOTAL T4 (thyroxine), total 6.7 mcg/d L 5.1-11 .9 normal Not Available [facility] [address] [place], [address], 04/12/2022 07:40:40 04/15/19 23 04/18/2022 CULTU RE, URINE , ROUTI NE culture, urine, routine CULTU RE, URINE , ROUTI NE Micro Numbe r: [id number] Test Statu s: Final Speci men [...] port Tube. Not Available [facility] [address] [place], [address], 04/18/2022 06:24:37 04/15/19 23 04/15/2022 urina lysis , dipst ick Leukocytes Modera te Not Available [facility] [address] [place], [address], 04/15/2022 10:19:13 04/15/19 23 04/15/2022 urina lysis , dipst ick Nitrite negati ve Not Available [facility] [address] [place], [address], 04/15/2022 10:19:13 04/15/19 23 04/15/2022 urina lysis , dipst ick Urobilinogen .2 Not Available [facility] [address] [place], [address], 04/15/2022 10:19:13 04/15/19 23 04/15/2022 urina lysis , dipst ick Protein Negati ve Not Available [facility] [address] [place], [address], 04/15/2022 10:19:13 04/15/19 23 04/15/2022 urina lysis , dipst ick pH 6.0 Not Available [facility] [address] [place], [address], 04/15/2022 10:19:13 04/15/19 23 04/15/2022 urina lysis , dipst ick Blood Negati ve Not Available [facility] [address] [place], [address], 04/15/2022 10:19:13 04/15/19 23 04/15/2022 urina lysis , dipst ick Specific [place] 1.025 Not Available [facility] [address] [place], [address], 04/15/2022 10:19:13 04/15/19 23 04/15/2022 urina lysis , dipst ick Ketone Negati ve Not Available [facility] [address] [place], [address], 04/15/2022 10:19:13 04/15/19 23 04/15/2022 urina lysis , dipst ick Bilirubin Negati ve Not Available [facility] [address] [place], [address], 04/15/2022 10:19:13 04/15/19 23 04/15/2022 urina lysis , dipst ick Glucose Negati ve Not Available [facility] [address] [place], [address], 04/15/2022 10:19:13 09/23/19 23 09/23/2022 LIPID PANEL , STAND BENITO cholesterol, total 142 mg/dL <200 normal Not Available [facility] [address] [facility], [place], [address], 09/23/2022 13:39:23 09/23/19 23 09/23/2022 LIPID PANEL , STAND BENITO HDL cholesterol 50 mg/dL > or = 50 normal Not Available [facility] [address], [place], [address], 09/23/2022 13:39:23 09/23/19 23 09/23/2022 LIPID PANEL , STAND BENITO triglyceride s 79 mg/dL <150 normal Not Available [facility] [address] [facility], [place], [address], 09/23/2022 13:39:23 09/23/19 23 09/23/2022 LIPID PANEL [...] 2061- 2068 (http ://ed ucati on.Qu Mera Squid [employer]il. com/f aq/FA Q164) Not Available [facility] [address] [facility], [place], [address], 09/23/2022 13:39:23 09/23/19 23 09/23/2022 LIPID PANEL , STAND BENITO chol/HDLC ratio 2.8 (calc ) <5.0 normal Not Available [facility] [address], [place], [address], 09/23/2022 13:39:23 09/23/19 23 09/23/2022 LIPID PANEL , STAND BENITO non HDL cholesterol 92 mg/dL _(steve c) <130 normal For patie nts with diabe tucker plus 1 major ASCVD risk facto r, treat ing to a non-H DL-C goal of <100 mg/dL (LDL- C of <70 mg/dL ) is kimberley jenseno n. Not Available [facility] [address] [place], [address], 09/23/2022 13:39:23 09/23/19 23 09/23/2022 COMPR EHENS ALEXUS METAB OLIC PANEL glucose 89 mg/dL 65-99 normal Fasti ng refer ence inter delmer Not Available [facility] [address] [place], [address], 09/23/2022 13:39:24 09/23/19 23 09/23/2022 COMPR EHENS ALEXUS METAB OLIC PANEL urea nitrogen (BUN) 14 mg/dL 7-25 normal Not Available [facility] [address] [place], [address], 09/23/2022 13:39:24 09/23/19 23 09/23/2022 COMPR EHENS ALEXUS METAB OLIC PANEL creatinine 0.96 mg/dL 0.60-0 .95 high Not Available [facility] [address] [place], [address], 09/23/2022 13:39:24 09/23/19 23 09/23/2022 COMPR EHENS [...] culat or Not Available [facility] [address] [place], [address], 09/23/2022 13:39:24 09/23/19 23 09/23/2022 COMPR EHENS ALEXUS METAB OLIC PANEL BUN/creatini ne ratio 15 (calc ) 6-22 normal Not Available [facility] [address] [place], [address], 09/23/2022 13:39:24 09/23/19 23 09/23/2022 COMPR EHENS ALEXUS METAB OLIC PANEL sodium 142 mmol/ L 135-14 6 normal Not Available [facility] [address] [place], [address], 09/23/2022 13:39:24 09/23/19 23 09/23/2022 COMPR EHENS ALEXUS METAB OLIC PANEL potassium 4.9 mmol/ L 3.5-5. 3 normal Not Available [facility] [address] [place], [address], 09/23/2022 13:39:24 09/23/19 23 09/23/2022 COMPR EHENS ALEXUS METAB OLIC PANEL chloride 108 mmol/ L 98-110 normal Not Available [facility] [address] [place], [address], 09/23/2022 13:39:24 09/23/19 23 09/23/2022 COMPR EHENS ALEXUS METAB OLIC PANEL carbon dioxide 28 mmol/ L 20-32 normal Not Available [facility] [address] [place], [address], 09/23/2022 13:39:24 09/23/19 23 09/23/2022 COMPR EHENS ALEXUS METAB OLIC PANEL calcium 9.6 mg/dL 8.6-10 .4 normal Not Available [facility] [address] [place], [address], 09/23/2022 13:39:24 09/23/19 23 09/23/2022 COMPR EHENS ALEXUS METAB OLIC PANEL protein, total 6.7 g/dL 6.1-8. 1 normal Not Available [facility] [address] [place], [address], 09/23/2022 13:39:24 09/23/19 23 09/23/2022 COMPR EHENS ALEXUS METAB OLIC PANEL albumin 4.2 g/dL 3.6-5. 1 normal Not Available [facility] [address] [place], [address], 09/23/2022 13:39:24 09/23/19 23 09/23/2022 COMPR EHENS ALEXUS METAB OLIC PANEL globulin 2.5 g/dL_ (calc ) 1.9-3. 7 normal Not Available [facility] [address] [place], [address], 09/23/2022 13:39:24 09/23/19 23 09/23/2022 COMPR EHENS ALEXUS METAB OLIC PANEL albumin/glob ulin ratio 1.7 (calc ) 1.0-2. 5 normal Not Available [facility] [address] [place], [address], 09/23/2022 13:39:24 09/23/19 23 09/23/2022 COMPR EHENS ALEXUS METAB OLIC PANEL bilirubin, total 0.6 mg/dL 0.2-1. 2 normal Not Available [facility] [address] [place], [address], 09/23/2022 13:39:24 09/23/19 23 09/23/2022 COMPR EHENS ALEXUS METAB OLIC PANEL alkaline phosphatase 59 U/L 37-153 normal Not Available [facility] [employer] [facility] [address] [place], [address], 09/23/2022 13:39:24 09/23/19 23 09/23/2022 COMPR EHENS ALEXUS METAB OLIC PANEL AST 19 U/L 10-35 normal Not Available [facility] [address] [place], [address], 09/23/2022 13:39:24 09/23/19 23 09/23/2022 CLAIRE VAUGHAN METAB OLIC PANEL ALT 10 U/L 6-29 normal Not Available [facility] [address] [place], [address], 09/23/2022 13:39:24 09/23/19 23 09/23/2022 TSH TSH 3.64 mIU/L 0.40-4 .50 normal Not Available [facility] [address] [place], [address], 09/23/2022 13:39:24 09/23/19 23 09/23/2022 CBC (INCL UDES DIFF/ PLT) white blood cell count 4.0 thous and/u L 3.8-10 .8 normal Not Available [facility] [address] [place], [address], 09/23/2022 13:39:25 09/23/19 23 09/23/2022 CBC (INCL UDES DIFF/ PLT) red blood cell count 3.90 dayami on/uL 3.80-5 .10 normal Not Available [facility] [address] [place], [address], 09/23/2022 13:39:25 09/23/19 23 09/23/2022 CBC (INCL UDES DIFF/ PLT) hemoglobin 12.5 g/dL 11.7-1 5.5 normal Not Available [facility] [address] [place], [address], 09/23/2022 13:39:25 09/23/19 23 09/23/2022 CBC (INCL UDES DIFF/ PLT) hematocrit 38.2 % 35.0-4 5.0 normal Not Available [facility] [address] [place], [address], 09/23/2022 13:39:25 09/23/19 23 09/23/2022 CBC (INCL UDES DIFF/ PLT) MCV 97.9 fL 80.0-1 00.0 normal Not Available [facility] [address] [place], [address], 09/23/2022 13:39:25 09/23/19 23 09/23/2022 CBC (INCL UDES DIFF/ PLT) MCH 32.1 pg 27.0-3 3.0 normal Not Available [facility] [address] [facility] [place], [address], 09/23/2022 13:39:25 09/23/19 23 09/23/2022 CBC (INCL UDES DIFF/ PLT) MCHC 32.7 g/dL 32.0-3 6.0 normal Not Available [facility] [address] [place], [address], 09/23/2022 13:39:25 09/23/19 23 09/23/2022 CBC (INCL UDES DIFF/ PLT) RDW 11.9 % 11.0-1 5.0 normal Not Available [facility] [place], [address], 09/23/2022 13:39:25 09/23/19 23 09/23/2022 CBC (INCL UDES DIFF/ PLT) platelet count 129 thous and/u L 140-40 0 low Not Available [facility] [place], [address], 09/23/2022 13:39:25 09/23/19 23 09/23/2022 CBC (INCL UDES DIFF/ PLT) MPV 12.5 fL 7.5-12 .5 normal Not Available [facility] [address], [place], [address], 09/23/2022 13:39:25 09/23/19 23 09/23/2022 CBC (INCL UDES DIFF/ PLT) absolute neutrophils 1548 cells /uL 1500-7 800 normal Not Available [facility] [address], [place], [address], 09/23/2022 13:39:25 09/23/19 23 09/23/2022 CBC (INCL UDES DIFF/ PLT) absolute lymphocytes 1828 cells /uL 850-39 00 normal Not Available [facility] [address], [place], [address], 09/23/2022 13:39:25 09/23/19 23 09/23/2022 CBC (INCL UDES DIFF/ PLT) absolute monocytes 372 cells /uL 200-95 0 normal Not Available [facility] [address], [place], [address], 09/23/2022 13:39:25 09/23/19 23 09/23/2022 CBC (INCL UDES DIFF/ PLT) absolute eosinophils 200 cells /uL 15-500 normal Not Available [facility] [address], [place], [address], 09/23/2022 13:39:25 09/23/19 23 09/23/2022 CBC (INCL UDES DIFF/ PLT) absolute basophils 52 cells /uL 0-200 normal Not Available [facility] [address], [place], [address], 09/23/2022 13:39:25 09/23/19 23 09/23/2022 CBC (INCL UDES DIFF/ PLT) neutrophils 38.7 % normal Not Available [facility] [address], [place], [address], 09/23/2022 13:39:25 09/23/19 23 09/23/2022 CBC (INCL UDES DIFF/ PLT) lymphocytes 45.7 % normal Not Available [facility] [address] [place], [address], 09/23/2022 13:39:25 09/23/19 23 09/23/2022 CBC (INCL UDES DIFF/ PLT) monocytes 9.3 % normal Not Available [facility] [address] [place], [address], 09/23/2022 13:39:25 09/23/19 23 09/23/2022 CBC (INCL UDES DIFF/ PLT) eosinophils 5.0 % normal Not Available [facility] [address] [place], [address], 09/23/2022 13:39:25 09/23/19 23 09/23/2022 CBC (INCL UDES DIFF/ PLT) basophils 1.3 % normal Not Available [facility] [address] [place], [address], 09/23/2022 13:39:25 09/23/19 23 09/23/2022 HEPAT ITIS [...] a test for HCV RNA (test code 27555 ) is sugge sted. For addit ional infor tony figueroa e refer to http: //daja beauchampque stdia gnost ics.c om/fa q/FAQ 22v1 (This link is being provi ded for infor tony nal/ educa gee l purpo ses only. ) Not Available [facility] [address] [place], [address], 09/23/2022 13:39:25 01/01/20 22 12/31/2021 CT, abdom en + pelvi s, w/o contr ast [facility] [address] [place] [address] Phone: Fax: Name: JENNIFER GANDARA Exam Date: 2021 : 1934 Age 86 Gender : F Access ion: [id number] Physic james: OOTHOU T, MEHRDAD Facili ty[facility] Facili ty HSV: Outpat ient Exam: CT [...] referr ing JENNIFER GANDARA to [facility]. Legall y authen ticate d by POPE ANDREW Nieves DO 2021-03 08:56: 26 CC'ed Logic: Orderi ng Provid er: TIMBO CRONIN CC Provid er: CHELA Balderrama Attend ing Provid er: TIMBO CRONIN Referr ing Provid er: TIMBO CRONIN Admitt ing Provid er: TIMBO darling [facility] (Radiology) [address] [place] [address] , [place], [address], 01/05/2022 00:36:32 07/22/19 23 07/20/2022 cardi ac stres s test No observ ation record ed. phong Villalobos MD [address], [place], [address], 09/23/2022 14:07:57 07/22/19 23 07/20/[address] spec wm/ef therapy tech Nuclea r stress test. 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 [id number] DATE OF EXAM: 2022 08:57: 00 [...] 2022 16:44: 56 DT: 2022 19:37: 35 /[id number] [facility] Signed By: HELLEN RENTERIA MD 2022-0 07-21 08:19: 37 CC'ed Logic: Orderi ng Provid er: CHELA Balderrama CC Provid er: CHELA Balderrama Attend ing Provid er: SCHNEI SANJAY DENISE Referr ing Provid er: SCHNEI SANJAY DENISE Admitt ing Provid er: SCHNEI SANJAY DENISE ralson1 [facility] (Radiology) [address] [place], [address], 09/23/2022 14:07:57 07/28/19 23 07/27/2022 MAMMO , scree cali, digit al, bilat eral [facility] [place] [address] Phone: Fax: Name: JENNIFER GANDARA Exam Date: 023 : 1934 Age 87 Gender : F Access ion: [id number] Physic james: ANDREW CARPENTER Facili ty: [facility] Facili ty HSV: Outpat ient [...] you for referr ing [facility] Legall y authen ticate d by JOSEPHINE Can MD 07-27 11:56: 24 CC'ed Logic: Orderi ng Provid er: CHELA Balderrama CC Provid er: CHELA Balderrama Attend ing Provid er: CHELA Balderrama Referr ing Provid er: CHELA Balderrama Admitt ing Provid er: CHELA [address] [place] [address] (Radiology) [address] [place] [address] [place], [address], 09/23/2022 14:07:57 Result Notes Documentation Provider Name and Address Organization Details Recorded Time Ct, Abdomen + Pelvis, W/o Contrast : [address] [place] [address] Name: MIGEL GANDARALIS Exam Date: 12/31/2021 : 1935 Age 86 Gender: F Physician: MEHRDAD QUINTERO Facility: [facility] Facility HSV: Outpatient Exam: CT ABD/PEL NO [...] Hospital. Legally authenticated by POPE ANDREW Nieves DO 2021-12-31 08:56:26 CC'ed Logic: Ordering Provider: LEON CRONIN CC Provider: ROX CRESPO Attending Provider: LEON CRONIN Referring Provider: LEON CRONIN Admitting Provider: LEON Gramajo MD [address] [facility], [address], [place], [address] 01/05/2022 00:36:32 Mammo, Screening, Digital, Bilateral : [address] [place] [address] Name: SUMMER GANDARA Exam Date: 07/27/2022 : 1935 Age 87 Gender: F Physician: VIOLETTA GRAMAJO Facility: [facility] Facility HSV: Outpatient Exam: SCREEN MAMMO W [...] to [facility]. Legally authenticated by HALLE Can MD 2022-07-27 11:56:24 CC'ed Logic: Ordering Provider: ROX CRESPO CC Provider: ROX CRESPO Attending Provider: ROX CRESPO Referring Provider: ROX CRESPO Admitting Provider: ROX Gramajo MD [address] [address], [facility] 09/23/2022 14:07:57 Problems Name Problem SNOMED Code Status Onset Date Resolution Date Notes Provider Name and Address Organization Details Recorded Time Knee pain Active Violetta Gramajo MD [address] [address], [facility] 15:49:41 Peripheral neuropathi c pain 763731030 Active Violetta Gramajo MD [address] [address], [facility] 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 15:49:41 Muscle pain 99255942 Active Violetta Gramajo MD [address] [address], [facility] 6 15:49:41 Disorder of urinary tract 36549390 Active Violetta Gramajo MD [address] [address], [facility] 6 15:49:41 Fatigue 67589866 Active Violetta Gramajo MD [address] [address], [facility] 6 15:49:41 Urinary tract infectious disease 47071284 Active Violetta Gramajo MD [address] [address], [facility] 6 15:49:41 Bacterial vaginosis 926946629 Active Violetta Gramajo MD [address] [address], [facility] 15:49:41 Candidiasi s of vagina 90155042 Active Violetta Gramajo MD [address] [address], [facility] 15:49:41 Acute bronchopne umonia 663403143 Active Violetta Gramajo MD [address] [address], [facility] 15:49:41 Stomatitis 63992194 Active Violetta Gramajo MD [address] [address], [facility] 6 16:09:39 Breast lump 42026672 [facility] 6 10:23:59 Headache 05607364 Active Violetta Gramajo MD [address] [address], [facility] - [facility] 6 15:49:41 Acute sinusitis 70754325 Active Violetta Gramajo MD [address] [address], [place] - [facility] 6 15:49:41 Superficia l injury of elbow and/or forearm and/or wrist Active Violetta Gramajo MD [address] [address], [facility] - [facility] 6 15:49:41 Gastroesop hageal reflux disease 650609690 Active Violetta Gramajo MD [address] [address], [facility] - [facility] 6 16:09:39 Wheezing 35198421 Active Violetta Gramajo MD [address] [address], [facility] - [facility] 6 15:49:41 Chest pain 29861718 Active Violetta Gramajo MD [address] [address], [facility] - [facility] 6 15:49:41 Symptom of head and neck region 911528189 Active Violetta Gramajo MD [address] [address], [facility] - [facility] 6 15:49:41 Benign essential hypertensi on 7824665 Active controlled Violetta Gramajo MD [address] [address], [facility] - [facility] 6 15:49:41 Hyperlipid emia 29353355 Active controlled Violetta Gramajo MD [address] [address], [facility] - [facility] 6 15:49:41 Backache 203765712 Active Violetta Gramajo MD [address] [address], [facility] - [facility] 6 15:49:41 Neck pain 12218757 Марина Gramajo MD [address] [address], [place] - [facility] 6 15:49:41 Allergic rhinitis 94382085 Active Violetta Gramajo MD [address] [address], [facility] - [facility] 6 15:49:41 Contact dermatitis due to solar radiation Active Violetta Gramajo MD [address] [address], [facility] - [facility] 6 15:49:41 Acute bronchitis 29059820 Марина Gramajo MD [address] [address], [facility] 6 15:49:41 Malaise and fatigue 524848351 Марина Gramajo MD [address] [address], [facility] 6 15:49:41 Insomnia 837389659 Марина Gramajo MD [address] [address], [facility] 6 15:49:41 Noninfecti ous gastroente ritis 96967266 Марина Gramajo MD [address] [address], [facility] 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 6 15:49:41 Problem Notes None recorded. Procedures Surgical History Date Name Laterality Status Provider Name and Address Organization Details Recorded Time 10/10/19 12 Nebulizer tx completed Violetta Gramajo MD 2017 [facility] [address], [place], [address], [facility] 10/10/2011 14:36:20 03/06/19 07 Colonoscopy completed Not Available [facility] 01/19/20 11 04:58:32 03/06/19 04 Colonoscopy completed Not Available [facility] 01/19/20 11 04:58:32 03/06/18 98 Carpal tunnel surgery completed Not Available [facility] 01/18/2011 04:58:32 03/06/18 60 Breast Biopsy completed Not Available [facility] 2010 04:58:32 Imaging Results None recorded. Procedure [...] Details Last Updated DateTime 3 165.1 cm 01688.2 2 g 25.6 kg/m2 51 /min 97 % 97 % 97.9 [degF] 147/78 mm[Hg] [facility] 3 10:17:22 Date Recorded Body height Body mass index (BMI) Body weight Heart rate Oxygen saturation Oxygen saturation in Arterial blood by Pulse oximetry Body temperature Systolic And Diastolic Provider Name and Address Organization Details Last Updated DateTime 2 165.1 cm 25 kg/m2 51443.9 6 g 81 /min 96 % 96 % 97.3 [degF] 124/63 mm[Hg] [facility] 2 14:08:45 Date Recorded Body height Body mass index (BMI) Body weight Heart rate Oxygen saturation Oxygen saturation in Arterial blood by Pulse oximetry Body temperature Systolic And Diastolic Provider Name and Address Organization Details Last Updated DateTime 3 165.1 cm 25 kg/m2 49171.5 6 g 54 /min 96 % 96 % 98.1 [degF] 130/72 mm[Hg] [facility] 3 13:45:18 Date Recorded Body height Body mass index (BMI) Body weight Heart rate Oxygen saturation Oxygen saturation in Arterial blood by Pulse oximetry Body temperature Systolic And Diastolic Provider Name and Address Organization Details Last Updated DateTime 3 165.1 cm 24.4 kg/m2 30175.5 9 g 67 /min 96 % 96 % 98.6 [degF] 134/90 mm[Hg] [facility] 3 16:04:04 Date Recorded Body height Body mass index (BMI) Body weight Heart rate Oxygen saturation Oxygen saturation in Arterial blood by Pulse oximetry Body temperature Systolic And Diastolic Provider Name and Address Organization Details Last Updated DateTime 2 165.1 cm 25 kg/m2 89541.9 6 g 64 /min 97 % 97 % 98.2 [degF] 142/85 mm[Hg] [facility] 2 14:38:41 Social History Question Answer Notes LastModified by Organizat ion Details LastModified Time Tobacco Smoking Status Never Smoker Not Available [facility] 12/31/2019 03:11:20 Do You Have An Advance Directive? No [id number] Information not available 12/31/2019 Animal Exposure? Yes [email or web address] [id number] 15 Information not available 01/18/2011 Is Blood Transfusion Acceptable In An Emergency? Yes [id number] Information not available 12/31/2019 What Is Your Level Of Caffeine Consumption? Occasional [id number] Information not available 12/31/2019 What Type Of Diet Are You Following? REGULAR [id number] Information not available 12/31/2019 Education 10 15 Information not available 01/18/2011 What Is The Highest Grade Or Level Of School You Have Completed Or The Highest Degree You Have Received? [id number] Information not available 09/15/2021 Family History Of Heart Disease? Yes 15 Information not available 01/18/2011 Are There Any Guns Present In Your Home? No [id number] Information not available 12/31/2019 Which Of Your Hands Is Dominant? Right [id number] Information not available 12/31/2019 High Blood Pressure Yes 15 Information not available 01/18/2011 High Cholesterol Yes [email or web address] 71890 15 Information not available 01/18/2011 Live Alone Or With Others? With Others 15 Information not available 01/18/2011 Marital Status Information not available 01/18/2011 What Was The Date Of Your Most Recent Tobacco Screening? 09/23/2022 Information not available 09/25/2022 How Many Children Do You Have? 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 Information not available 09/15/2021 Do You Use Your Seat Belt Or Car Seat Routinely? Yes [id number] Information not available 12/31/2019 Seat Belts Used Routinely Yes 15 Information not available 01/18/2011 Are You Sexually Active? Yes Information not available 09/25/2022 Do You Have Any Siblings? 2 Brothers Healthy [id number] Information not available 12/31/2019 Smoke Alarm In Home Yes 15 Information not available 01/18/2011 Are You Passively Exposed To Smoke? No 15 Information not available 01/18/2011 General Stress Level Medium 15 Information not available 01/18/2011 Do You Use Sunscreen Routinely? Yes [id number] Information not available 12/31/2019 Sex: Unknown Functional Status Question Answer Note LastModified by Organizat ion Details LastModified Time What is your level of alcohol consumption? 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 Occasional [id number] Information not available 12/31/2019 Mental Status None [...] Blood Diseases N Hyperthyroidism N Hypothyroidism N COPD N Depression N Developmental or Behavioral Disorders N Eczema, [...] Disease N Pulmonary Embolism N Hypertension Y Chicken Pox N Osteoporosis N Gynecological History Statement/Question Response If Post Menopausal, Age at Menopause 60 Age at First Child 19 Obstetrics History GPAL:G 3 P 3 0 0 3 Type Value Full Term 3 Living 3 Total 3 Immunizations Vaccine Type Date Status Note Provider Nam e and Address Organization Details Recorded Time Influenza, high-dose, trivalent, PF 7 completed Not Available [facility] 03/23/2019 02:12:13 Influenza, high-dose, trivalent, PF 8 completed Not Available [facility] 03/23/2019 02:12:13 Influenza, high-dose, trivalent, PF 9 completed Not Available [facility] 03/23/2019 02:12:11 Influenza, high-dose, quadrivalent, PF 0 completed Not Available [facility] 11/15/2019 13:45:08 Influenza, split virus, quadrivalent, preservative 4 completed [facility] 02/04/2014 11:53:28 Influenza, high-dose, quadrivalent, PF 1 completed Not Available [facility] 12/04/2020 10:40:16 zoster live 4 completed Violetta Gramajo MD [address] [facility], [address] [address], [place], [address], [facility] 03/18/2014 12:07:44 Pneumococcal conjugate PCV 13 5 completed [facility] 04/25/2014 10:18:26 Influenza, high-dose, quadrivalent, PF 2 completed Violetta Gramajo MD [address] [facility], [address] [address], [place], [address], [facility] 12/26/2021 22:46:37 Influenza, high-dose, trivalent, PF 5 completed Not Available [facility] 04/06/2019 02:12:32 Influenza, high-dose, quadrivalent, PF 3 completed Violetta Gramajo MD [address] [facility], [address] [address], [place], [address], [facility] 11/29/2022 23:13:50 Tdap 2 completed Not Available [facility] 03/23/2019 02:12:10 Influenza, high-dose, trivalent, PF 6 completed Not Available [facility] 04/06/2019 02:12:33 COVID-19 vaccine, vector-nr, rS-Ad26, PF, 0.5 mL 1 completed Violetta Gramajo MD [address], [address] [place] [address], [place] - [facility] 09/13/2021 14:56:46 COVID-19 vaccine, vector-nr, rS-Ad26, PF, 0.5 mL 2 completed Violetta Gramajo MD [address] [address], [place] - [facility] 09/13/2021 14:57:00 pneumococcal polysaccharide PPV23 1 completed Violetta Gramajo MD [address] [place] [address], [address] [place] [address], [place] - [facility] 12/06/2012 10:28:55 Td (adult) 7 completed Violetta Gramajo MD [address], [address] [place] [address], [place] - [facility] 12/06/2012 10:28:55 Past Encounters Encounter ID Performer Location Encounter Start Date Encounter Closed Date Diagnosis/Indication Diagnosis SNOMED-CT Code Diagnosis ICD10 Code Diagnosis IMO Codes Diagnosis Note [id number] Jay Eldridge MD [facility] [address] [address] 02/11/2011 09:43:29 02/11/2011 17:59:32 [id number] Violetta Gramajo MD [facility] [address] [address] 05/27/2011 11:08:06 05/27/2011 13:45:27 [id number] Violetta Gramajo MD [address] [address] 10/10/2011 13:16:06 10/10/2011 15:07:02 [id number] Jay Eldridge MD [facility] [address] [address] 11/01/2011 10:32:16 11/01/2011 15:32:50 [id number] Violetta Gramajo MD [facility] [address] [address] 06/12/2012 10:16:49 06/12/2012 16:40:31 [id number] Violetta Gramajo MD [address] [address] 08/24/2012 09:09:43 08/24/2012 17:11:15 [id number] Violetta Gramajo MD [facility] [address] [address] 12/06/2012 09:09:44 12/06/2012 10:42:32 Headache 47190356 Neck pain 63888326 [id number] Violetta Gramajo MD [address] [address] 05/10/2013 13:45:55 05/10/2013 16:22:13 Knee pain 87263690 Peripheral neuropathic pain 641949687 Benign ess ential hypertension 9421317 Gastroesop hageal reflux disease 243337830 Headache 52896222 Hyperlipidemia 98612548 Degenerati on of cervical intervertebral disc 59599454 Muscle pain 54721534 [id number] Violetta Gramajo MD [address] [address] 11/18/2013 13:28:55 11/18/2013 15:15:20 Adult health examination 453932533 Chest pain 81757721 Fatigue 74424876 Benign ess ential hypertension 1332371 Degenerati on of cervical intervertebral disc 89532616 Hyperlipidemia 52850143 Screening mammography 78273139 [id number] Violetta Gramajo MD [address] [address] 03/18/2014 10:18:17 03/18/2014 16:46:20 Urinary tract infectious disease 60272558 Bacterial vaginosis 864609971 Candidiasis of vagina 64302723 [id number] Violetta Gramajo MD [address] [address] 09/19/2014 14:06:00 09/19/2014 15:01:44 Acute bronchopneumonia 801780630 Fatigue 84924459 Headache 36145413 Wheezing 44040327 [id number] Violetta Gramajo MD [facility] [address] [address] 10/06/2014 14:15:26 10/06/2014 16:15:31 Urinary tract infectious disease 99113829 [id number] Violetta Gramajo MD [facility] [address] [id number] 01/13/2015 15:45:34 01/13/2015 17:15:50 Adult health examination 566135267 Z00.01 Degenerati on of cervical intervertebral disc 97969485 M50.30 Hyperlipidemia 29419505 E78.5 Headache 49167075 R51 Candidiasis of vagina 72 108340 B37.3 Urinary tr act infectious disease 86660928 N39.0 [id number] Violetta Gramajo MD [place] [address] 06/11/2015 14:19:51 06/11/2015 16:30:40 Stomatitis 78010070 K12.1 Gastroesop hageal reflux disease 049094247 K21.9 Breast lump 75045479 N63 [id number] Violetta Gramajo MD [place] [address] 09/28/2015 14:32:26 09/28/2015 17:26:16 Stomatitis 53165412 K12.1 Unstable knee 691152951 M25.369 [id number] Violetta Gramajo MD [address] [address] 02/04/2016 14:11:36 02/08/2016 08:39:13 Acute sciatica 951851030 M54.31 Upper resp iratory infection 69351391 J06.9 Cough 94027840 R05 Insomnia 381064949 G47.0 0 [id number] Violetta Gramajo MD [facility] [place] [address] 06/09/2016 09:54:25 06/09/2016 17:48:41 Sciatica 97644146 M54.31 Knee pain 46544703 M25.5 61 Osteoarthr itis of knee 574160780 M17.0 Allergic rhinitis 241245 04 J30.9 Acute sinusitis 82007808 J01.90 [id number] Violetta Gramajo MD [facility] [address] [place] [address] 06/13/2017 13:22:16 06/15/2017 08:31:39 Adult health examination 983011840 Z00.01 Essential hypertension 04895548 I10 Hyperlipidemia 11267983 E78.5 Persistent insomnia 1919 70444 G47.09 Chronic he adache disorder 585004753 G44.89 Screening mammography 24 840963 Z12.31 Chronic neck pain 306066 4010 107 M54.2 Depression screening 171 725676 Z13.89 Body mass index 25-29 - overweight 428224608 Z68.26 [id number] Violetta Gramajo MD [facility] [address] [address] 02/13/2018 15:29:02 02/14/2018 10:30:54 Cellulitis and abscess of breast 570897653 N61.1 Active or passive immunization 896061061 Z23 Chronic he adache disorder 252220094 G44.89 [id number] Violetta Gramajo MD [facility] [address] [address] 07/17/2018 09:27:17 07/19/2018 09:29:56 Adult health examination 458550557 Z00.01 Atypical chest pain 1025 05053 R07.89 Degenerati on of cervical intervertebral disc 60082162 M50.30 Glossitis 75589445 K14.0 Gastroesop hageal reflux disease 771002803 K21.9 Chronic constipation 236 629294 K59.09 she will borrow some of her daughter's Linzess. Screening mammography 24 230468 Z12.31 Body mass index 25-29 - overweight 308089018 Z68.25 Trochanter ic bursitis of right hip 7896912981 78549 M70.61 Essential hypertension 67417933 I10 Hyperlipidemia 37371995 E78.5 Persistent insomnia 1919 68417 G47.09 Chronic he adache disorder 952066719 G44.89 Chronic neck pain 059802 4246 107 M54.2 Depression screening 171 455812 Z13.89 [id number] Violetta Gramajo MD [facility] [address] [address] 10/09/2018 14:52:34 10/09/2018 16:56:25 Screening for malignant neoplasm of colon 821685582 Z12.11 [id number] Violetta Gramajo MD [facility] [address] [place] [address] 7 01/28/2019 09:50:08 02/03/2019 20:57:30 Active or passive immunization 848917847 Z23 Eczema 01222497 L30.9 Idiopathic peripheral neuropathy 69501769 G60.9 [id number] Violetta Gramajo MD [facility] [address] [place] [address]172 7 07/12/2019 13:51:17 07/15/2019 08:32:37 Persistent insomnia 036199546 G47.09 Chronic neck pain 764157 4376 107 M54.2 [id number] Violetta Gramajo MD [facility] [address] [address] 08/08/2019 10:24:41 08/09/2019 08:13:49 Adult health examination 671602774 Z00.01 Degenerati on of cervical intervertebral disc 65059367 M50.30 Glossitis 14160975 K14.0 Gastroesop hageal reflux disease 435716387 K21.9 Chronic constipation 236 949503 K59.09 she will borrow some of her daughter's Linzess. Trochanter ic bursitis of right hip 0384210498 62438 M70.61 Essential hypertension 46763470 I10 Hyperlipidemia 77054661 E78.5 Persistent insomnia 1919 90831 G47.09 Chronic he adache disorder 454882633 G44.89 Chronic neck pain 389884 2651 107 M54.2 Depression screening 171 884306 Z13.89 Dyspnea on exertion 6084 5006 R06.09 Restrictiv e lung disease 89655761 J98.4 Chronic ob structive pulmonary disease 38535198 J44.9 Body mass index 20-24 - normal 989504545 Z68.24 [id number] Violetta Gramajo MD [facility] [address] [address] 01/17/2020 09:56:28 01/19/2020 20:15:26 Hyperlipidemia 96107535 E78.5 Trigger fi nger of right hand 0083671297 5755420 M65.30 we are providing a finger splint for her to use at night. Thyroid fu nction tests abnormal 523524287 R94.6 Unintentio nal weight loss 472509326 R63.4 Hyperthyroidism 45032514 E05.90 [id number] Violetta Gramajo MD [facility] [address] [place] [address] 7 06/29/2020 10:01:27 06/30/2020 08:44:29 Trigger finger of right hand 3505964682 5399412 M65.30 Chronic ne ck pain for greater than 3 months 5285651295 44054 M54.2 Screening mammography 24 533022 Z12.31 Hyperthyroidism 83678478 E05.90 [id number] Violetta Gramajo MD [facility] [place] [id number] 7 06/11/2021 14:45:19 06/14/2021 08:50:38 Chronic neck pain for greater than 3 months 2101260630 60843 M54.2 Essential hypertension 50716644 I10 Gastroesop hageal reflux disease 017935545 K21.9 [id number] Violetta Gramajo MD [facility] [place] [address] 7 07/01/2021 14:14:54 07/05/2021 07:50:48 Chest wall pain 793770437 R07.89 Fatigue 09036950 R53.83 Hyperlipidemia 12966428 E78.5 Subclinica l hyperthyroidism 828706785 E05.90 Essential hypertension 66114131 I10 [id number] Violetta Gramajo MD [facility] [address] [place] [address] 7 07/06/2021 14:42:59 07/13/2021 08:34:47 Hyperthyroidism 74087605 E05.90 Chest wall pain 37386615 6 R07.89 Hyperlipidemia 50566879 E78.5 Subclinica l hyperthyroidism 098076205 E05.90 Essential hypertension 53981277 I10 [id number] Violetta Gramajo MD [facility] [address] [address] 7 09/13/2021 13:55:39 09/16/2021 08:11:45 Adult health examination 222212599 Z00.01 Degenerati on of cervical intervertebral disc 26988538 M50.30 Gastroesop hageal reflux disease 955358627 K21.9 Chronic constipation 236 924020 K59.09 Improved Essential hypertension 58735835 I10 Hyperlipidemia 36312709 E78.5 Chronic he adache disorder 526364633 G44.89 Chronic neck pain 498907 4197 107 M54.2 Depression screening 171 329029 Z13.89 Dyspnea on exertion 6084 5006 R06.09 Restrictiv e lung disease 52707162 J98.4 Body mass index 25-29 - overweight 165621055 Z68.25 Skin lesion 99730781 L98 .9 rough area on the left ear [id number] Violetta Gramajo MD [facility] [address] [place] [address] 7 12/24/2021 14:06:17 12/27/2021 08:44:17 Acute low back pain 157084055 M54.50 Administra tion of influenza vaccine 23524769 Z23 [id number] Violetta Gramajo MD [facility] [address] [address] 04/15/2022 09:55:24 04/18/2022 09:09:29 Increased frequency of urination 704145229 R35.0 Urinary tr act infectious disease 22387409 N39.0 Hyperthyroidism 31003641 E05.90 Essential hypertension 15257395 I10 [id number] Violetta Gramajo MD [facility] [address] [address] 7 09/23/2022 13:25:38 09/26/2022 08:37:51 Adult health examination 283236022 Z00.01 Degenerati on of cervical intervertebral disc 93047296 M50.30 Gastroesop hageal reflux disease 349209368 K21.9 Chronic constipation 236 184431 K59.09 Improved with metamucil gummies Essential hypertension 91152449 I10 Hyperlipidemia 70796408 E78.5 Chronic he adache disorder 995635026 G44.89 Chronic neck pain 226842 6356 107 M54.2 Depression screening 171 317794 Z13.89 Dyspnea on exertion 6084 5006 R06.09 Restrictiv e lung disease 11948371 J98.4 Body mass index 25-29 - overweight 732127565 Z68.25 Osteoarthr itis of knee 992983096 M17.0 Degenerati on of lumbar intervertebral disc 30208434 M51.36 Immunization advised 310 199753 Z71.9 [id number] Violetta Gramajo MD [facility] [address] [facility], [address] [place] [address] 11/28/2022 14:48:09 12/01/2022 09:19:24 Chronic neck pain for greater than 3 months 1164417039 95303 M54.2 Administra tion of influenza vaccine 54327332 Z23 Health Concerns Section Related Observation LastModified by Organization Detai ls LastModified Time None Recorded Concern Status LastModified by Organization Details LastModified Time None Recorded Advance Directives Directive N: Payers Insurance Date Sequence Insurance Name Policy Number Policy Quintero Covered Member ID Quintero Member ID Guarantor Name 11/28/2022 1 [employer] (PPO) Summersally Gandara [id number] Summer Gandara 11/28/2022 1 [employer] (MEDICARE REPLACEMENT/AD VANTAGE - PPO) Summermarychuy Gandara [id number] Summer Gandara 11/28/2022 1 BCBS-[place]: LIDIA DICKINSON [place] - MEDIBLUE PL[place] (MEDICARE REPLACEMENT HMO) [id number] Summer Gandara [id number] Summer Gandara Notes Date Note Type [...] in the mornings. Violetta Gramajo MD [address] [facility], [facility] [address], [place], [address], [facility] 09/15/2021 16:47:04 [...] she quit going. Violetta Gramajo MD [address] [facility], [place] [address], [place], [address], [facility] 12/26/2021 22:49:09 [...] of Methimazole daily. Violetta Gramajo MD [address] [facility], [facility] [address], [place], [address], [facility] 04/16/2022 21:24:37 09/23/2022 text/html her worst thing is pain in the right side of the upper back and chest and she had a negative cardiac work up/ Her skin in those area feels sensitive and sore as well. 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 Violetta Gramajo MD [address] [facility], [address], [place], [address], [facility] 09/25/2022 08:58:40 11/28/2022 text/html [...] neck injection about 2 weeks ago in [place] in right posterior shoulder but it did [...] that frustrates her. Violetta Gramajo MD [address] [facility], [address], [place], [address], [facility] 11/29/2022 23:21:58 OBGyn Episode Ob Episode Information Episode Created Date Number of Fetuses Patient Bloodtype Patient rh Status Prepregnancy Weight lbs Domestic Partner Domestic Partner Phone Father Name Linotypist Status 11/10/19 11 1 CLOSED Fetus Data [...] Domestic Partner Domestic Partner Phone Father Name Linotypist Status 11/10/19 11 1 CLOSED Fetus Data [...] Domestic Partner Domestic Partner Phone Father Name Linotypist Status 11/10/19 11 1 CLOSED Fetus Data [...]
--- NOTE | 2024-12-20 11:00 | MM_ITS ---
PROCEDURE INFORMATION: Exam: MG Bilateral Screening 3D Mammography Exam date and time: 12/20/2024 10:47 AM Age: 89 years old Clinical indication: Screening examination TECHNIQUE: Imaging protocol: Bilateral Screening tomosynthesis and 2D mammography including computer-aided detection (CAD) when performed. COMPARISON: MG MM DIG SCREENING MAMM BI W/CAD 09/20/2023 12:26 PM FINDINGS: MAMMOGRAPHY: Breast composition: There are scattered areas of fibroglandular density. Mass: None. Architectural distortion: None. Calcifications: No suspicious calcifications. Asymmetric density: None. Skin thickening: None. Axillary adenopathy: None. IMPRESSION: No mammographic evidence of malignancy. Annual screening is recommended unless otherwise clinically indicated. ASSESSMENT: BI-RADS Category 1: Negative.
== END 2024-12-20 23:59 | disposition home or self-care (01) ==
LOC: RAD 10:40
PROVIDERS: PCP Family Medicine; Visit Provider Family Medicine
DX: Z12.31 Encounter for screening mammogram for malignant neoplasm of breast (principal); R92.323 Mammographic fibroglandular density, bilateral breasts
CPT/HCPCS: 77063; 77067